=== PATIENT | female | born 1985 | race Caucasian/White ===

== ENCOUNTER 2018-06-26 20:15 | Observation (INO) | payer SELFPAY ==
--- OUTSIDE RECORDS SUMMARY | 2018-06-26 20:32 | XMS REPORT | Continuity of Care Document ---
:1985 Author Organization Interface Problems Problem Status Onset Classification Date Comments Source Date Reported DUB 06/14/2018 [facility] 019 VAGINAL BLEEDING Active [facility] 019 ABDOMINAL PAIN Active [facility] 017 Discharge 01/06/2016 [facility] Diagnosis: Facial 016 cellulitis HEAD SWELLING Active [facility] 016 Discharge 05/09/2014 [facility] Diagnosis: Acute 015 lumbar back pain Discharge 04/29/2014 [facility] Diagnosis: 015 Cervicitis Discharge 04/29/2014 [facility] Diagnosis: 015 Abdominal pain in Discharge 04/29/2014 [facility] Diagnosis: UTI in 015 FLU-TYPE SYMTOMS Active [facility] 015 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 LEG Active [facility] PAIN/EDEMA-HX:PLAT 014 E Tobacco dependence Active Problem 06/14/2018 Data [facility] syndrome<sup>5</hylton 014 migrated p> from [employer] on 07/26/14. Abnormal cytology Active Problem 06/14/2018 Data [facility] findings<sup>1</hylton 014 migrated p> from [employer] on 07/26/14. , Active [facility] DELIVERY 014 Discharge 05/02/2013 [facility] Diagnosis: Bipolar 014 Discharge 05/02/2013 [facility] Diagnosis: Ankle 014 sprain Discharge 05/02/2013 [facility] Diagnosis: 014 RIGHT FOOT INJURY Active [facility] 014 Depressive Active Problem 06/14/2018 Data [facility] disorder<sup>3</hylton 013 migrated p[facility] 07/26[facility]14. Resolved Problem 06/14/2018 [facility] 013 CHEST PAIN Active [facility] 013 ABD PAIN Active [facility] 013 STOMACH PAIN Active [facility] 013 CRONES EPISODE Active [facility] 012 Anxiety Active Problem 06/14/2018 [facility] Bipolar Active Problem 03/05/2017 [facility] Depression Active Problem 03/05/2017 [facility] Gastritis Active Problem 06/14/2018 [facility] Insomnia Active Problem 06/14/2018 [facility] Intussusception of Resolved Problem 06/14/2018 [facility] intestine Intussusception of Active Problem 06/14/2018 [facility] the intestine Depression Resolved Problem 10/22/2012 [facility] Gastritis Active Problem 10/22/2012 [facility] Intussusception of Active Problem 10/22/2012 [facility] the intestine [facility] INTUSSUSCEPTION Active [facility] PAIN IN LIMB Active [facility] DELIVERY Active [facility] NOS RIGHT TUBAL Active [facility] WITHOUT INTRAUTERI Medications Medication Details Route Status Patient Ordering Order Source Instructions Provider Date Acetaminophen 650 mg, 2 tab, Inactive Route: PO, [facility] Drug form: TAB, ONCE, Dosing Weight 46.364, kg, Priority: STAT, Start date: 06/11/18 10:48:00 CDT, Stop date: 06/11/18 10:48:00 CDTNotes: Do not exceed 4 gm/day. (Same as: Tylenol) Saline Flush 0.9% 10 mL, Route: Inactive IVP, Drug 2018 [facility] Form: INJ, Dosing Weight 46.364, kg, PRN, PRN Line Flush, Start date: 06/11/18 10:48:00 CDT, Duration: 30 day, Stop date: 07/11/18 10:47:00 CDTNotes: (Same as: BD Posiflush) Sodium Chloride 500 mL, 500 Inactive 0.9% (Bolus) IV ml/hr, Infuse [facility] Over: 1 hr, Route: IV, 500, Drug form: INJ, ONCE, Priority: STAT, Dosing Weight 46.364 kg, Start date: 06/11/18 10:48:00 CDT, Stop date: 06/11/18 10:48:00 CDT Cefazolin 2 gm, Route: Inactive IVPB, ONCE, [facility] Dosing Weight 45.727, kg, Start date: 03/02/17 18:47:00 [employer], Stop date: 03/02/17 18:47:00 [employer], Surgical Prophylaxis Only; For patients ketOROLAC (ANES) IV, ONCE Inactive [facility] ondansetron Route: IV, Inactive (ANES) Drug form: 2017 [facility] INJ, ONCE, Stop date: 03/02/17 18:45:00 [employer] neostigmine Route: IV, Inactive (ANES) Drug form: 2017 [facility] INJ, ONCE, Stop date: 03/02/17 18:45:00 [employer] glycopyrrolate Route: IV, Inactive (ANES) Drug form: 2017 [facility] INJ, ONCE, Stop date: 03/02/17 18:45:00 [employer] ceFAZolin (ANES) Route: IV, Inactive Drug form: 2017 [facility] INJ, ONCE, Stop date: 03/02/17 18:34:00 [employer] dexamethasone Route: IV, Inactive (ANES) Drug form: 2017 [facility] INJ, ONCE, Stop date: 03/02/17 18:34:00 [employer] rocuronium (ANES) Route: IV, Inactive Drug form: 2017 [facility] INJ, ONCE, Stop date: 03/02/17 18:34:00 [employer] Zofran 4 mg, 2 mL, Inactive Route: IVP, [facility] Drug form: INJ, Q4H, Dosing Weight 45.727, kg, PRN Nausea, Start date: 03/02/17 18:34:00 [employer], Duration: 30 day, Stop date: 04/01/17 18:33:00 CSTNotes: (Same as: Zofran) MEDICATION WASTE Product Size: 4 mg Product Wasted: ___ mg Morphine 2 mg, 1 mL, Inactive Route: IVP, 2017 [facility] Drug form: INJ, Q2H, Dosing Weight 45.727, kg, PRN Pain Score 7-10, Start date: 03/02/17 18:34:00 [employer], Duration: 30 day, Stop date: 04/01/17 18:33:00 CSTNotes: (Same as:MORPhine Sulfate) acetaminophen-cod 2 tab, Route: Inactive eine #3 PO, Drug Form: 2017 [facility] TAB, Dosing Weight 45.727, kg, Q4H, PRN Pain Score 4-6, Start date: 03/02/17 18:34:00 [employer], Duration: 30 day, Stop date: 04/01/17 18:33:00 CSTNotes: Do not exceed 4gm/day of acetaminophen. (Same as: Tylenol with Codeine # 3) Acetaminophen 300 1 - 2 tab, PO, Active MG / Codeine Q4H, PRN Pain, 2017 [facility] Phosphate 30 MG X 2 week, # 30 Oral Tablet tab, 0 [Tylenol with Refill(s) Codeine #3] propofol (ANES) Route: IV, Inactive Drug form: 2017 [facility] INJ, ONCE, Stop date: 03/02/17 18:24:00 [employer] fentaNYL (ANES) Route: IV, Inactive Drug form: 2017 [facility] INJ, ONCE, Stop date: 03/02/17 18:24:00 [employer] lidocaine (ANES) Route: IV, Inactive Drug form: 2017 [facility] INJ, ONCE, Stop date: 03/02/17 18:24:00 [employer] acetaminophen Route: IV, Inactive (ANES) 10 mg Drug form: 2017 [facility] INJ, Start date: 03/02/17 18:06:00 [employer], Stop date: 03/02/17 19:06:00 [employer] Lactated Ringers Route: IV, Inactive Injection IV Total Volume: 2017 [facility] (ANES) 1000 mL 1,000, Start date: 03/02/17 17:34:00 [employer], Stop date: 03/02/17 18:34:00 [employer] Meperidine 12.5 mg, 0.5 Inactive mL, Route: 2017 [facility] IVP, Drug form: INJ, Q30Min, Dosing Weight 45.727, kg, PRN Other -See Comment, For shivering, Start date: 03/02/17 17:13:00 [employer], Duration: 2 doses or times, Stop date: 03/03/17 5:00:00 CSTNotes: (Same as: Demerol) "Use Precaution in Elderly, Seizure disorders, and Renal impairment" Promethazine 6.25 mg, 50 Inactive mL, Route: 2017 [facility] IVPB, Drug form: SOLN, ONCE, Dosing Weight 45.727, kg, PRN Nausea & Vomiting, Start date: 03/02/17 17:13:00 [employer] Ondansetron 4 mg, 2 mL, Inactive Route: IVP2017 [facility] Drug form: INJ, ONCE, Dosing Weight 45.727, kg, PRN Nausea & Vomiting, Start date: 03/02/17 17:13:00 CSTNotes: (Same as: Zofran) MEDICATION WASTE Product Size: 4 mg Product Wasted: ___ mg Flumazenil 0.2 mg, 2 mL, Inactive Route: IV2017 [facility] Drug form: INJ, PRN, Dosing Weight 45.727, kg, PRN Benzodiazepine Reversal, Initial dose, Start date: 03/02/17 17:13:00 [employer], Stop date: 04/02/17 5:00:00 CSTNotes: (Same as: Romazicon) Naloxone 0.4 mg, 1 mL, Inactive Route: IV2017 [facility] Drug form: INJ, Q2MIN, Dosing Weight 45.727, kg, PRN Narcotic Reversal, Start date: 03/02/17 17:13:00 [employer], Duration: 8 doses or times, Stop date: 03/03/17 5:00:00 CSTNotes: Same as Narcan Albuterol 0.83 2.49 mg, 3 mL, Inactive MG/ML Inhalant Route: [facility], 2017 [facility] Solution Drug form: SOLN, Q20Min, Dosing Weight 45.727, kg, PRN Wheezing, Priority: STAT, Start date: 03/02/17 17:13:00 [employer], Duration: 12 hr, Stop date: 03/03/17 5:12:00 CSTNotes: SEE RT DOCUMENTATION (Same as: Proventil) Morphine 2 mg, 1 mL, Inactive Route: IVP, 2017 [facility] Drug form: INJ, Q5Min, Dosing Weight 45.727, kg, PRN Pain Score 4-6, Start date: 03/02/17 17:13:00 [employer], Duration: 5 doses or times, Stop date: 03/03/17 5:00:00 CSTNotes: (Same as:MORPhine Sulfate) Oxycodone 5 mg, 1 tab, Inactive Route: PO, [facility] Drug form: TAB, Q4H, Dosing Weight 45.727, kg, PRN Pain Score 4-6, Start date: 03/02/17 17:13:00 [employer], Duration: 12 hr, Stop date: 03/03/17 5:12:00 CSTNotes: (Same as: Roxicodone) Hydromorphone 0.5 mg, 0.5 Inactive mL, Route: [facility] IVP, Drug form: INJ, Q5Min, Dosing Weight 45.727, kg, PRN Pain Score 7-10, Start date: 03/02/17 17:13:00 [employer], Duration: 4 doses or times, Stop date: 03/03/17 5:00:00 CSTNotes: Same as: Dilaudid Ketorolac 30 mg, 1 mL, Inactive Route: IVP2017 [facility] Drug form: INJ, ONCE, Dosing Weight 45.727, kg, Start date: 03/02/17 17:13:00 [employer], Stop date: 03/02/17 17:13:00 CSTNotes: (Same as:Toradol) IV bolus must be given >15 seconds. Give IM administration slowly and deeply into the muscle. Not for use > 4 days MEDICATION WASTE Product Size: 30 mg Product Wasted: ___ mg Acetaminophen 1,000 mg, 2 Inactive tab, Route: [facility] PO, Drug form: TAB, ONCE, Dosing Weight 45.727, kg, PRN Pain Score 1-3, Start date: 03/02/17 17:13:00 CSTNotes: Max acetaminophen 4000 mg/day (4 gm/day). (Same as: Tylenol Extra Strength) Labetalol 10 mg, 2 mL, Inactive Route: IVP, 2017 [facility] Drug form: INJ, Q5Min, Dosing Weight 45.727, kg, PRN Elevated BP, Start date: 03/02/17 17:13:00 [employer], Duration: 5 doses or times, Stop date: 03/03/17 5:00:00 CSTNotes: (Same as: Normodyne, Trandate) Push over 2 minutes Give bolus over 2-3 minutes. Hydralazine 10 mg, 0.5 mL, Inactive Route: IVP, 2017 [facility] Drug form: INJ, Q20Min, Dosing Weight 45.727, kg, PRN Elevated BP, Start date: 03/02/17 17:13:00 [employer], Duration: 2 doses or times, Stop date: 03/03/17 5:00:00 CSTNotes: (Same as: Apresoline) Push over 5 minutes Calcium Chloride 1,000 mL, Inactive 0.0014 MEQ/ML / 1,000 ml/hr, [facility] Potassium Infuse Over: 1 Chloride 0.004 hr, Route: IV, MEQ/ML / Sodium 1,000, Drug Chloride 0.103 form: INJ, MEQ/ML / Sodium ONCE, Lactate 0.028 Priority: MEQ/ML Injectable STAT, Dosing Solution Weight 45.727 kg, Start date: 03/02/17 15:00:00 [employer], Stop date: 03/02/17 15:00:00 [employer] Zofran 4 mg, Route: Inactive IVP, Drug [facility] form: INJ, ONCE, Dosing Weight 45.727, kg, Priority: STAT, Start date: 03/02/17 14:25:00 [employer], Stop date: 03/02/17 14:25:00 [employer] Morphine 4 mg, Route: Inactive IVP, ONCE, [facility] Dosing Weight 45.727, kg, Priority: STAT, Start date: 03/02/17 14:25:00 [employer], Stop date: 03/02/17 14:25:00 [employer] Sodium Chloride 1,000 mL, Inactive 0.9% (Bolus) IV Infuse Over: 1 [facility] hr, Route: IV, ONCE, Priority: STAT, Dosing Weight 45.727 kg, Start date: 03/02/17 14:25:00 [employer], Stop date: 03/02/17 14:25:00 [employer] Tylenol 650 mg, Route: Inactive PO, Drug form: 2017 [facility] TAB, ONCE, Dosing Weight 45.727, kg, Priority: STAT, Start date: 03/02/17 12:37:00 [employer], Stop date: 03/02/17 12:37:00 [employer] Sulfamethoxazole 1 tab, PO, Active 800 MG / BID, X 10 day, 2016 [facility] Trimethoprim 160 # 20 tab, 0 MG Oral Tablet Refill(s) [Bactrim] Cephalexin 500 MG 500 mg=1 cap, Active Oral Capsule PO, QID, X 10 [facility] [Keflex] day, # 40 cap, 0 Refill(s) Acetaminophen 325 1 tab, Route: Inactive MG / Hydrocodone PO, Dosing 2014 [facility] Bitartrate 5 MG Weight 50.909, Oral Tablet kg, ONCE, STAT, Start date: 05/06/14 14:00:00, Stop date: 05/06/14 14:00:00 Sodium Chloride 1,000 mL, 1000 Inactive 0.154 MEQ/ML ml/hr, Infuse 2014 [facility] Injectable Over: 1 hr, Solution Route: IV, 1,000, Drug form: INJ, ONCE, Priority: STAT, Dosing Weight 50.909 kg, Start date: 05/06/14 13:07:00, Duration: 1 doses or times, Stop date: 05/06/14 13:07:00 Morphine 4 mg, 1 mL, Inactive Route: IVP, 2014 [facility] Drug form: INJ, ONCE, Dosing Weight 50.909, kg, Priority: STAT, Start date: 05/06/14 12:52:00, Stop date: 05/06/14 12:52:00Notes: (Same as:MORPhine Sulfate) Ondansetron 4 mg, 2 mL, Inactive Route: IVP, 2014 [facility] Drug form: INJ, ONCE, Dosing Weight 50.909, kg, Priority: STAT, Start date: 05/06/14 12:52:00, Stop date: 05/06/14 12:52:00Notes: (Same as: Zofran) Acetaminophen 1,000 mg, 2 Inactive tab, Route: 2014 [facility] PO, Drug form: TAB, ONCE, Dosing Weight 50.909, kg, Priority: STAT, Start date: 05/06/14 12:52:00, Stop date: 05/06/14 12:52:00Notes: Max acetaminophen 4000 mg/day (4 gm/day). (Same as: Tylenol Extra Strength) Ondansetron 8 MG 8 mg=1 tab, Active Disintegrating PO, TID, 2014 [facility] Tablet [Zofran] Nausea and Vomiting, Dissolve tab under tongue, # 15 tab, 0 Refill(s)Speci al Instructions: Dissolve tab under tongue Amoxicillin 875 875 mg=1 tab, Active MG / Clavulanate PO, Q12H, # 14 2014 [facility] 125 MG Oral tab, 0 Tablet [Augmentin Refill(s) 875-mg] Acetaminophen 300 1 tab, PO, Active MG / Codeine Q6H, for pain, 2014 [facility] Phosphate 30 MG # 12 tab, 0 Oral Tablet Refill(s) [Tylenol with Codeine #3] Azithromycin 1,000 mg, 4 Inactive tab, Route: 2014 [facility] PO, Drug form: TAB, ONCE, Dosing Weight 50, kg, Start date: 04/27/14 1:56:00, Stop date: 04/27/14 1:56:00Notes: Take 1 hour before or 2 hours after meals. (Same As: Zithromax) Ceftriaxone 250 mg, Route: Inactive IM, Drug form: 2014 [facility] PDR/INJ, ONCE, Dosing Weight 50, kg, Priority: STAT, Start date: 04/27/14 1:56:00, Stop date: 04/27/14 1:56:00Notes: (Same As: Rocephin) Morphine 6 mg, 0.6 mL, Inactive Route: IVP, 2014 [facility] Drug form: SOLN, ONCE, Dosing Weight 50, kg, Priority: STAT, Start date: 04/27/14 1:36:00, Stop date: 04/27/14 1:36:00Notes: (Same as: MORPhine Sulfate) Sodium Chloride 1,000 mL, No Longer 0.154 MEQ/ML 1,000 ml/hr, Active 2014 [facility] Injectable Infuse Over: 1 Solution hr, Route: IV, 1,000, Drug form: INJ, ONCE, Priority: STAT, Dosing Weight 50 kg, Start date: 04/26/14 23:20:00, Duration: 1 doses or times, Stop date: 04/26/14 23:20:00 Reglan 10 mg, 2 mL, No Longer Route: IVP, Active 2014 [facility] Drug form: INJ, ONCE, Dosing Weight 50, kg, Priority: STAT, Start date: 04/26/14 23:20:00, Stop date: 04/26/14 23:20:00Notes: (Same as: Reglan) tramadol 1 - 2 tabs, Active hydrochloride 50 PO, Q4-6H, as 2014 [facility] MG Oral Tablet needed for [Ultram] pain, pain score 6-10, # 30 tab, 0 Refill(s)Speci al Instructions: pain score 6-10 Acetaminophen 325 1-2 tab, PO, Active MG / Hydrocodone Q4-6H, Pain, # 2013 [facility] Bitartrate 5 MG 20 tab, 0 Oral Tablet Refill(s) [[place] 5/325] Ascorbic Acid 120 1 tab, PO, Active MG / Docusate Daily, # 30 2013 [facility] Sodium 50 MG / tab, 2 Folic Acid 1 MG / Refill(s) Iron Carbonyl 90 MG / Vitamin B 12 0.012 MG Oral Tablet [Ferralet 90] Ibuprofen 800 MG 800 mg=1 tab, Active Oral Tablet PO, Q8H, Pain, 2013 [Motrin] Take with food, # 30 tab, 0 Refill(s)Speci al Instructions: Take with food Lamictal 100 mg, 1 tab, No Longer Route: PO, Active 2013 [facility] Drug form: TAB, Daily, Dosing Weight 60.597, kg, Start date: 08/14/13 9:00:00, Duration: 30 day, Stop date: 09/12/13 9:00:00Notes: (Same as:LaMICtal) Zofran 4 mg, 2 mL, No Longer Route: IV, 2013 Drug form: INJ, Q8H, Dosing Weight 60.597, kg, PRN Nausea, Start date: 08/13/13 21:21:00, Duration: 30 day, Stop date: 09/12/13 21:20:00Notes: (Same as: Zofran) Saline Flush 0.9% 5 ml, Route: No Longer IVP, Drug Active 2013 Form: INJ, Dosing Weight 60.597, kg, Q12H, Start date: 08/13/13 21:00:00, Duration: 30 day, Stop date: 09/12/13 9:00:00Notes: (Same as: BD Posiflush) Morphine 30 mg, 30 mL, No Longer Route: IV, 2013 Initial Loading Dose: 2 mg, [employer] Dose: 1 mg, [employer] Lockout: 10 minutes, Continuous Basal Rate: 1 mg, 4 Hour Limit (In MG): 30, Drug Form: INJ, Continuous, Start date: 08/13/13 18:00:00, Duration: 30 day, Stop date: 09/12/13 17:5...Notes: Dose: Delay: Basal rate: 4hr limit: (Same as:Sergio) 1 tab, Route: No Longer Multivitamins PO, Drug Form: 2013 oral tablet TAB, Dosing Weight 60.597, kg, Daily, Start date: 08/13/13 18:00:00, Duration: 30 day, Stop date: 09/12/13 9:00:00 Ofirmev 1,000 mg, 100 No Longer mL, Route: IV, 2013 Drug form: INJ, Q6H, Dosing Weight 60.597, kg, PRN Pain, for > or=50 kg, Start date: 08/13/13 17:59:00, Duration: 1 day, Stop date: 08/14/13 17:58:00Notes: Infuse over 15 minutes Do not exceed 4gm/day of acetaminophen Ketorolac 30 mg, 1 mL, No Longer Tromethamine 30 Route: IV, 2013 MG/ML Injectable Drug form: Solution INJ, Q6H, Dosing Weight 60.597, kg, PRN Pain, Start date: 08/13/13 17:59:00, Duration: 1 day, Stop date: 08/14/13 17:58:00Notes: (Same as:Toradol) IV bolus must be given >15 seconds. Give IM administration slowly and deeply into the muscle. Not for use > 4 days Demerol HCl 25 mg, 1 mL, No Longer Route: IVP, Active 2013 [facility] Drug form: INJ, Q4H, Dosing Weight 60.597, kg, PRN Pain, Start date: 08/13/13 17:59:00, Duration: 4 day, Stop date: 08/17/13 17:58:00Notes: (Same as: Demerol) "Use Precaution in Elderly, Seizure disorders, and Renal impairment" Naloxone 0.04 mg, 0.1 No Longer mL, Route: Active 2013 [facility] IVP, Drug form: SOLN, Q2MIN, Dosing Weight 60.597, kg, PRN Narcotic Reversal, Start date: 08/13/13 17:59:00, Duration: 30 day, Stop date: 09/12/13 17:58:00Notes: Same as: Narcan Acetaminophen 1 gm, 100 mL, No Longer Route: IV, Active 2013 [facility] Drug form: INJ, Q6H, Dosing Weight 60.597, kg, PRN Pain, Start date: 08/13/13 16:59:00, Duration: 30 day, Stop date: 09/12/13 16:58:00Notes: Infuse over 15 minutes Do not exceed 4gm/day of acetaminophen Ketorolac 30 mg, 1 mL, No Longer Route: IV, Active 2013 [facility] Drug form: INJ, Q6H, Dosing Weight 60.597, kg, PRN Pain, Start date: 08/13/13 16:58:00, Duration: 4 day, Stop date: 08/17/13 16:57:00Notes: (Same as:Toradol) IV bolus must be given >15 seconds. Give IM administration slowly and deeply into the muscle. Not for use > 4 days Acetaminophen 325 1 tab, Route: No Longer MG / Hydrocodone PO, Drug Form: Active 2013 [facility] Bitartrate 10 MG TAB, Dosing Oral Tablet Weight 60.597, kg, Q4H, PRN Pain Score 7-10, Start date: 08/13/13 15:32:00, Duration: 30 day, Stop date: 09/12/13 15:31:00Notes: Do not exceed 4gm/day of acetaminophen. (Same as: [place] 325/10) Acetaminophen 325 1 tab, Route: No Longer MG / Hydrocodone PO, Drug Form: Active 2013 [facility] Bitartrate 5 MG TAB, Dosing Oral Tablet Weight 60.597, kg, Q4H, PRN Pain Score 4-6, Start date: 08/13/13 15:32:00, Duration: 30 day, Stop date: 09/12/13 15::Notes: (Same as: [place] 325/5) Do not exceed 4gm/day of acetaminophen. Ibuprofen 800 mg, 2 tab, No Longer Route: PO, Active 2013 [facility] Drug form: TAB, Q8H, Dosing Weight 60.597, kg, PRN Pain Score 6-10, Start date: 08/13/13 15:32:00, Duration: 30 day, Stop date: 09/12/13 15::00Notes: (Same as: Motrin) "Do Not Crush" Give with food. Saline Flush 0.9% 5 ml, Route: No Longer IVP, Drug Active 2013 [facility] Form: INJ, Dosing Weight 60.597, kg, PRN, PRN Line Flush, Start date: 08/13/13 15:32:00, Duration: 30 day, Stop date: 09/12/13 15:31:00Notes: (Same as: BD Posiflush) zolpidem 5 mg, 1 tab, No Longer Route: PO, Active 2013 [facility] Drug form: TAB, Bedtime, Dosing Weight 60.597, kg, PRN Insomnia, Start date: 08/13/13 15:32:00, Duration: 30 day, Stop date: 09/12/13 15:31:00Notes: (Same As: Ambien) Simethicone 160 mg, 2 tab, No Longer Route: PO, Active 2013 [facility] Drug form: [place], Q8H, Dosing Weight 60.597, kg, PRN Gas, Start date: 08/13/13 15:32:00, Duration: 30 day, Stop date: 09/12/13 15:31:00Notes: (Same as: Mylicon) Acetaminophen 650 mg, 2 tab, No Longer Route: PO, Active 2013 [facility] Drug form: TAB, Q4H, Dosing Weight 60.597, kg, PRN Other -See Comment, Start date: 08/13/13 15:32:00, Duration: 30 day, Stop date: 09/12/13 15:31:00Notes: Do not exceed 4 gm/day. (Same as: Tylenol) lanolin topical 1 appl, Route: No Longer cream TOP, PRN, Drug Active 2013 [facility] form: OINT, PRN Other -See Comment, Start date: 08/13/13 15:32:00, Duration: 30 day, Stop date: 09/12/13 15:31:00 Bisacodyl 10 mg, 1 supp, No Longer Route: CA, Active 2013 [facility] Drug form: SUPP, PRN, Dosing Weight 60.597, kg, PRN Other -See Comment, Start date: 08/13/13 15:32:00, Duration: 30 day, Stop date: 09/12/13 15:31:00Notes: (Same As: Dulcolax, Bisco-Lax) Oxytocin 0.03 30 unit, 500 No Longer UNT/ML Injectable mL, Rate: 42 [facility] Solution ml/hr, Infuse over: 11.9 hr, Dosing Weight 60.597, kg, Route: IV, Total Volume: 500 mL, Start date: 08/13/13 15:32:00, Duration: 1 doses or times, Stop date: 08/14/13 3:25:00, Replace Every: 11.9 hrNotes: (Same as: 1/2NS-Pitocin) Lactated Ringers 1,000 mL, No Longer IV 1,000 mL Rate: 100 Active 2013 ml/hr, Infuse over: 10 hr, Route: IV, Dosing Weight 60.597 kg, Total Volume: 1,000, Start date: 08/13/13 15:32:00, Duration: 30 day, Stop date: 09/12/13 15:31:00 Morphine 30 mg, 30 mL, No Longer Route: IV, Active 2013 [place] Initial Loading Dose: 2 mg, [employer] Dose: 1 mg, [employer] Lockout: 10 minutes, Continuous Basal Rate: 1 mg, 4 Hour Limit (In MG): 30, Drug Form: INJ, Continuous, Start date: 08/13/13 12:30:00, Duration: 30 day, Stop date: 09/12/13 12:2...Notes: Dose: Delay: Basal rate: 4hr limit: (Same as:Gerardi-Mikhali) Alprazolam 0.5 MG 0.5 mg, 1 tab, No Longer Oral Tablet Route: PO, Active 2013 [place] [Xanax] Drug form: TAB, BID, Dosing Weight 60.597, kg, PRN Anxiety, Start date: 08/13/13 12:05:00, Duration: 30 day, Stop date: 09/12/13 12:04:00Notes: With food or milk (Same as: Xanax) Ofirmev 1,000 mg, 100 Inactive mL, Route: IV, 2013 [facility] Drug form: INJ, Q6H, Dosing Weight 60.597, kg, PRN Pain, for > or=50 kg, Start date: 08/13/13 12:03:00, Duration: 1 day, Stop date: 08/14/13 12:02:00Notes: Infuse over 15 minutes Do not exceed 4gm/day of acetaminophen Demerol HCl 25 mg, 1 mL, Inactive Route: IVP, 2013 [facility] Drug form: INJ, Q4H, Dosing Weight 60.597, kg, PRN Pain, Start date: 08/13/13 12:03:00, Duration: 4 day, Stop date: 08/17/13 12:02:00Notes: (Same as: Demerol) "Use Precaution in Elderly, Seizure disorders, and Renal impairment" Ketorolac 30 mg, 1 mL, Inactive Tromethamine 30 Route: IV, 2013 MG/ML Injectable Drug form: Solution INJ, Q6H, Dosing Weight 60.597, kg, PRN Pain, Start date: 08/13/13 12:03:00, Duration: 1 day, Stop date: 08/14/13 12:02:00Notes: (Same as:Toradol) IV bolus must be given >15 seconds. Give IM administration slowly and deeply into the muscle. Not for use > 4 days Naloxone 0.04 mg, 0.1 No Longer mL, Route: Active 2013 [facility] IVP, Drug form: INJ, Q2MIN, Dosing Weight 60.597, kg, PRN Narcotic Reversal, Start date: 08/13/13 12:03:00, Duration: 30 day, Stop date: 09/12/13 12:02:00Notes: Same as Narcan Alprazolam 0.5 MG 0.5 mg=1 tab, No Longer Oral Tablet PO, BID, Active 2013 [facility] [Xanax] anxiety, stress, # 20 tab, 0 Refill(s) Valium 0.5, PO, No Longer Bedtime, 0 Active 2013 [facility] Refill(s) Cefazolin 2 gm, Route: Inactive IVPB, ONCALL, 2013 [facility] Dosing Weight 60.597, kg, Start date: 08/13/13 11:00:00, Duration: 1 doses or times Misoprostol 1,000 Inactive microgram, 10 2013 [facility] tab, Route: CA, Drug form: TAB, ONCALL, Dosing Weight 60.597, kg, Start date: 08/13/13 11:00:00, Duration: 30 day, Stop date: 09/12/13 10:59:00Notes: (Same as:Cytotec) Take with food Methylergonovine 0.2 mg, 1 mL, Inactive Route: IM, 2013 [facility] Drug form: INJ, ONCALL, Dosing Weight 60.597, kg, Start date: 08/13/13 11:00:00, Duration: 30 day, Stop date: 09/12/13 10:59:00Notes: (Same as:Methergine) Carboprost 250 microgram, Inactive 1 mL, Route: 2013 [facility] IM, Drug form: INJ, ONCALL, Dosing Weight 60.597, kg, Start date: 08/13/13 11:00:00, Duration: 30 day, Stop date: 09/12/13 10:59:00Notes: (Same As: Hemabate) Reglan 10 mg, Route: Inactive IV, ONCE, 2013 [facility] Dosing Weight 60.597, kg, Start date: 08/13/13 10:59:00, Stop date: 08/13/13 10:59:00 Pepcid 20 mg, Route: Inactive IV, ONCE, 2013 [facility] Dosing Weight 60.597, kg, Start date: 08/13/13 10:59:00, Stop date: 08/13/13 10:59:00 Rocephin 2 gm, Route: Inactive IV, ONCE, 2013 [facility] Dosing Weight 60.597, kg, Start date: 08/13/13 10:58:00, Stop date: 08/13/13 10:58:00 Terbutaline 0.25 mg, 0.25 Inactive mL, Route: 2013 [facility] SUB-Q, Drug form: INJ, ONCALL, Dosing Weight 60.597, kg, PRN Other -See Comment, Start date: 08/13/13 10:56:00, Duration: 1 doses or times, Stop date: Limited # of timesNotes: DO NOT 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 AREA (Same As: Brethine) Oxytocin 0.03 30 unit, 500 Inactive UNT/ML Injectable mL, Rate: 42 2013 [facility] Solution ml/hr, Infuse over: 11.9 hr, Dosing Weight 60.597, kg, Route: IV, Total Volume: 500 mL, Start date: 08/13/13 10:56:00, Duration: 1 doses or times, Stop date: 08/13/13 22:49:00, Replace Every: 11.9 hrNotes: (Same as: 1/2NS-Pitocin) Citric Acid / 30 mL, Route: Inactive sodium citrate PO, Drug Form: 2013 [facility] SOLN, Dosing Weight 60.597, kg, ONCE, Start date: 08/13/13 10:56:00, Duration: 1 doses or times, Stop date: 08/13/13 10:56:00Notes: (Same As: Bicitra) Calcium Chloride 1,000 mL, Inactive 0.0014 MEQ/ML / Rate: 125 2013 [facility] Potassium ml/hr, Infuse Chloride 0.004 over: 8 hr, MEQ/ML / Sodium Route: IV, Chloride 0.103 Dosing Weight MEQ/ML / Sodium 60.597 kg, Lactate 0.028 Total Volume: MEQ/ML Injectable 1,000, Start Solution date: 08/13/13 10:56:00, Duration: 30 day, Stop date: 09/12/13 10:55:00 Morphine 2 mg, 1 mL, Inactive Route: IVP, 2013 [facility] Drug form: INJ, Q2H, Dosing Weight 60.597, kg, PRN Pain Score 7-10, Start date: 08/13/13 10:56:00, Duration: 30 day, Stop date: 09/12/13 10:55:00Notes: (Same as:MORPhine Sulfate) Ondansetron 4 mg, 2 mL, Inactive Route: IVP, 2013 [facility] Drug form: INJ, Q8H, Dosing Weight 60.597, kg, PRN Nausea & Vomiting, Start date: 08/13/13 10:56:00, Duration: 30 day, Stop date: 09/12/13 10:55:00Notes: (Same as: Zofran) Acetaminophen 325 1 tab, PO, Active MG / Hydrocodone Q4-6H, as 2013 [facility] Bitartrate 5 MG needed for Oral Tablet pain, # 12 [[place] 5/325] tab, 0 Refill(s) Acetaminophen 325 1 tab, Route: Inactive MG / Hydrocodone PO, Drug Form: 2013 [facility] Bitartrate 5 MG TAB, Dosing Oral Tablet Weight 52.273, [[place] 5/325] kg, ONCE, Start date: 04/30/13 19:22:00, Stop date: 04/30/13 19:22:00(Same as: [place] 325/5) Do not exceed 4gm/day of acetaminophen. Lamictal 100 mg, Daily, Active 0 Refill(s) 2013 [facility] 0 Refill(s) Active Multivitamins 2013 with Folic Acid 0.4 mg oral tablet Vicodin 5/500 1-2 tablets, PO Active [facility] oral tablet PO, TID, PRN, 2012 [facility] 15 tab, for Pain, Substitution Allowed, Maintenance naproxen 500 mg 500 mg, 1 tab, PO Active [facility] oral tablet PO, Q12H, PRN, 2012 [facility] 20 tab, Pain, Substitution Allowed, TAB [place] 5/325 oral 2 tab, Route: PO No Longer [facility] tablet PO, Drug Form: Active 2012 [facility] TAB, Dosing Weight 49.545, kg, ONCE, Start date: 10/19/12 23:27:00, Stop date: 10/19/12 23:27:00 GI cocktail 30 mL, Route: PO No Longer [facility] PO, Drug Form: Active 2012 [facility] SUSP, Dosing Weight 49.545, kg, ONCE, STAT, Start date: 10/19/12 22:34:00, Stop date: 10/19/12 22:34:00 ketorolac 30 mg, 1 mL, IVP No Longer [facility] Route: IVP, Active 2012 [facility] Drug form: INJ, ONCE, Dosing Weight 49.545, kg, Priority: STAT, Start date: 10/19/12 21:37:00, Stop date: 10/19/12 21:37:00 nitrofurantoin 100 mg, 1 cap, PO Active [facility] macrocrystals 100 PO, QID, 28 2012 [facility] mg oral capsule cap, Substitution Allowed, CAP Zofran ODT 4 mg 4 mg, 1 tab, PO Active [facility] oral tablet, PO, BID, 2012 [facility] disintegrating Dissolve tab under tongue, 10 tab, Substitution AllowedDissolv e tab under tongue omeprazole Substitution Active Allowed 2012 [facility] Omnipaque 240 50 ml, Route: PO No Longer [facility] PO, Drug Form: Active 2012 [facility] SOLN, Dosing Weight 48.636, kg, ONCE, Start date: 05/31/12 19:15:00, Stop date: 05/31/12 19:15:00 Zofran 4 mg, 2 mL, IVP No Longer [facility] Route: IVP, Active 2012 [facility] Drug form: INJ, ONCE, Dosing Weight 48.636, kg, Priority: STAT, Start date: 05/31/12 19:15:00, Stop date: 05/31/12 19:15:00 morphine Sulfate 4 mg, 1 mL, IVP No Longer [facility] Route: IVP, Active 2012 [facility] Drug form: INJ, ONCE, Dosing Weight 48.636, kg, Start date: 05/31/12 19:15:00, Stop date: 05/31/12 19:15:00 NS (Bolus) IV 1,000 mL, IV No Longer [place]te 1,000 mL Rate: 1,000 Active 2012 [facility] ml/hr, Infuse over: 1 hr, Route: IV, kg, Total Volume: 1,000, Priority: STAT, Start date: 05/31/12 19:15:00, Duration: 1 doses or times, Stop date: 05/31/12 22:14:00, Bolus DoseBolus Dose Saline Flush 0.9% 5 mL, Route: IVP No Longer [facility] IVP, Drug Active 2012 [facility] Form: INJ, Dosing Weight 48.636, kg, PRN, PRN Line Flush, Start date: 05/31/12 19:15:00, Duration: 24 hr, Stop date: 06/01/12 19:14:00 Mylicon 80 mg, 1 tab, CHEW No Longer [place] Route: CHEW, Active 2011 [facility] Drug form: CHEWTAB, QID, PRN Gas, Start date: 04/17/11 12:00:00, Duration: 30 day, Stop date: 05/17/11 11:59:00 Lovenox 40 mg, 0.4 mL, SUB-Q No Longer [place] Route: SUB-Q, Active 2011 [facility] Drug form: INJ, Daily, Start date: 04/17/11 9:00:00, Duration: 30 day, Stop date: 05/16/11 9:00:00 morphine Sulfate 2 mg, Route: IVP No Longer [place] IVP, ONCE, Active 2011 [facility] Start date: 04/16/11 19:35:00, Stop date: 04/16/11 19:35:00 morphine Sulfate 4 mg, 1 mL, IVP No Longer [place] Route: IVP, [facility] 2011 [facility] Drug form: INJ, ONCE, Start date: 04/16/11 19:25:00, Stop date: 04/16/11 19:25:00 morphine Sulfate 4 mg, Route: IVP No Longer [place] IVP, ONCE, [facility] 2011 [facility] Start date: 04/16/11 19:20:00, Stop date: 04/16/11 19:20:00 Phenergan 12.5 mg, 0.5 IM No Longer [place] mL, Route: IM, 2011 [facility] Drug form: INJ, Q4H, PRN Nausea & Vomiting, Start date: 04/16/11 19:13:00, Duration: 30 day, Stop date: 05/16/11 19:12:00 morphine Sulfate 2 mg, 1 mL, IV No Longer [place] Route: IV, [facility] 2011 [facility] Drug form: INJ, Q4H, PRN Pain, Start date: 04/16/11 19:12:00, Duration: 30 day, Stop date: 05/16/11 19:11:00 1/2NS 1,000 mL 1,000 mL, IV No Longer [place] Rate: 50 [facility] 2011 [facility] ml/hr, Infuse over: 20 hr, Route: IV, Total Volume: 1,000, Start date: 04/16/11 19:12:00, Duration: 30 day, Stop date: 05/16/11 19:11:00 morphine Sulfate 4 mg, Route: IVP No Longer [place] IVP, ONCE, [facility] 2011 [facility] Start date: 04/16/11 19:11:00, Stop date: 04/16/11 19:11:00 morphine Sulfate 4 mg, Route: IVP No Longer [place] IVP, ONCE, [facility] 2011 [facility] Start date: 04/16/11 19:09:00, Stop date: 04/16/11 19:09:00 morphine Sulfate 2 mg, Route: IVP No Longer [place] IVP, ONCE, [facility] 2011 [facility] Start date: 04/16/11 19:04:00, Stop date: 04/16/11 19:04:00 Demerol HCl 12.5 mg, IVP No Longer [place] Route: IVP, Active 2011 [facility] ONCE, Start date: 04/16/11 19:01:00, Stop date: 04/16/11 19:01:00 Demerol HCl 12.5 mg, IVP No Longer [place] Route: IVP, Active 2011 [facility] ONCE, Start date: 04/16/11 19:00:00, Stop date: 04/16/11 19:00:00 Demerol HCl 12.5 mg, IVP No Longer [place] Route: IVP, Active 2011 [facility] ONCE, Start date: 04/16/11 18:12:00, Stop date: 04/16/11 18:12:00 acetaminophen 1,000 mg, IVP No Longer [place] Route: IVP, Active 2011 [facility] ONCE, Start date: 04/16/11 18:12:00, Stop date: 04/16/11 18:12:00 Demerol HCl 12.5 mg, IVP No Longer [place] Route: IVP, Active 2011 [facility] ONCE, Start date: 04/16/11 18:11:00, Stop date: 04/16/11 18:11:00 cefazolin 1 gm, Route: IVPB No Longer [place] IVPB, ONCE, [facility] 2011 [facility] Priority: STAT, Start date: 04/16/11 16:47:00, Stop date: 04/16/11 16:47:00 Flagyl 500 mg, 100 IVPB No Longer [place] mL, Route: [facility] 2011 [facility] IVPB, Drug form: INJ, ONCE, Start date: 04/16/11 16:47:00, Stop date: 04/16/11 16:47:00 LR IV 1,000 mL 1,000 mL, IV No Longer [place] Rate: 40 Active 2011 [facility] ml/hr, Infuse over: 25 hr, Route: IV, Total Volume: 1,000, Start date: 04/16/11 15:53:00, Duration: 1 doses or times, Stop date: 04/17/11 16:52:00 BD Normal Saline 10 mL, Route: IV No Longer [place] Flush IV, Drug Form: Active 2011 [facility] INJ, PRN, PRN Line Flush, Start date: 04/16/11 15:42:00, Duration: 30 day, Stop date: 05/16/11 16:41:00 cefazolin 1 gm, Route: IVPB No Longer [place] IVPB, ONCE, Active 2011 [facility] Start date: 04/16/11 15:42:00, Stop date: 04/16/11 15:42:00 Zofran 4 mg, 2 mL, IVP No Longer [place] Route: IVP, Active 2011 [facility] Drug form: INJ, Q4H, PRN Nausea & Vomiting, Start date: 04/16/11 15:41:00, Duration: 30 day, Stop date: 05/16/11 15:40:00 morphine Sulfate 4 mg, 1 mL, IVP No Longer [place] Route: IVP, Active 2011 [facility] Drug form: INJ, Q4H, PRN Pain, Start date: 04/16/11 15:41:00, Duration: 30 day, Stop date: 05/16/11 15:40:00 NS 1,000 mL 1,000 mL, IV No Longer [place] Rate: 100 Active 2011 [facility] ml/hr, Infuse over: 10 hr, Route: IV, Total Volume: 1,000, Start date: 04/16/11 15:41:00, Duration: 30 day, Stop date: 05/16/11 15:40:00 cefazolin 1 gm, Route: IVPB No Longer [place] IVPB, ONCE, Active 2011 [facility] Priority: STAT, Start date: 04/16/11 15:17:00, Stop date: 04/16/11 15:17:00 ondansetron 4 mg, 2 mL, IVP No Longer [place] Route: IVP, Active 2011 [facility] Drug form: INJ, ONCE, Priority: STAT, Start date: 04/16/11 15:03:00, Stop date: 04/16/11 15:03:00 morphine Sulfate 4 mg, 1 mL, IVP No Longer [place] Route: IVP, Active 2011 [facility] Drug form: INJ, ONCE, Priority: STAT, Start date: 04/16/11 15:03:00, Stop date: 04/16/11 15:03:00 Sodium Chloride 1,000 mL, IV No Longer [place] 0.9% IV 1,000 mL Rate: 100 Active 2011 [facility] ml/hr, Infuse over: 10 hr, Route: IV, Total Volume: 1,000, Start date: 04/16/11 15:03:00, Duration: 30 day, Stop date: 05/16/11 15:02:00 Sodium Chloride 1,000 mL, IV No Longer [place] 0.9% (Bolus) IV Rate: 1,000 Active 2011 [facility] 1,000 mL ml/hr, Infuse over: 1 hr, Route: IV, Total Volume: 1,000, Bolus Dose, Priority: STAT, Start date: 04/16/11 15:02:00, Duration: 1 doses or times, Stop date: 04/16/11 16:01:00 ondansetron 4 mg, 2 mL, IVP No Longer [place] Route: IVP, Active 2011 [facility] Drug form: INJ, ONCE, Priority: STAT, Start date: 04/16/11 11:01:00, Stop date: 04/16/11 11:01:00 morphine Sulfate 4 mg, 1 mL, IVP No Longer [place] Route: IVP, Active 2011 [facility] Drug form: INJ, ONCE, Priority: STAT, Start date: 04/16/11 11:01:00, Stop date: 04/16/11 11:01:00 Omnipaque 240 50 ml, Route: PO No Longer [place] PO, Drug Form: Active 2011 [facility] SOLN, ONCE, Start date: 04/16/11 11:01:00, Stop date: 04/16/11 11:01:00 Sodium Chloride 1,000 mL, IV No Longer [place] 0.9% (Bolus) IV Rate: 1,000 Active 2011 [facility] 1,000 mL ml/hr, Infuse over: 1 hr, Route: IV, Total Volume: 1,000, Bolus Dose, Priority: STAT, Start date: 04/16/11 11:01:00, Duration: 1 doses or times, Stop date: 04/16/11 12:00:00 RhoGam (MAR 300 microgram, IM No Longer [facility] Chart[facility]) Route: IM, Active 2009 Outpatient ONCE, Start Imaging date: 05/04/09 [place] 8:47:00, Stop [facility] date: 05/04/09 8:47:00 Allergies, Adverse Reactions, Alerts Substance Category Reaction Severity Reaction Status Date Comments Source type Reported Immunizations Immunization Date Site Status Last Comments Source Given Updated RhoGam (Apr Right completed Gayle [facility] Chart[facility]) 4 gluteus medius RhoGam (Apr Other: See completed Art Result [facility] Chart[facility])<sup>1< 0 Comments Comment: /sup> LEFT HIP RhoGam (Apr completed Art 1Result [facility] Charting)<sup>1< 0 Comment: Outpatient /sup> LEFT HIP Imaging [facility] Results Order Name Results Value Reference Date Interpretation Comments Source Range CHEM PANEL eGFR 118 06/11 Result Comment: The eGFR is calculated using the CKD-EPI formula. In most young, healthy individuals the eGFR will be >90 mL/ min/1.73m2. The eGFR declines with age. An eGFR of 60-89 may be normal in mL/min/1.7 some populations, particularly the elderly, for whom the CKD-EPI formula has not been extensively validated. Use of the eGFR is not recommended in the following populations: [facility] 3m2 Individuals with unstable creatinine concentrations, including patients and those with serious co-morbid conditions. Patients with extremes in muscle mass or diet. The data above are obtained from the National Kidney Disease Education Program (NKDEP) which additionally recommends that when the eGFR is used in patients with extremes of body mass index for purposes of drug dosing, the eGFR should be multiplied by the estimated BMI. CHEM PANEL CO2 29 meq/L 24 - 32 06/11 [facility] CHEM PANEL Potassium 3.6 meq/L 3.5 - 5.1 06/11 Lvl [facility] CHEM PANEL Chloride Lvl 102 meq/L 95 - 109 06/11 [facility] CHEM PANEL Calcium Lvl 8.8 mg/dL 8.5 - 10.5 06/11 [facility] CHEM PANEL Sodium Lvl 139 meq/L 135 - 145 06/11 [facility] CHEM PANEL Creatinine 0.65 mg/dL 0.50 - 06/11 Lvl 1.40 [facility] CHEM PANEL BUN 11 mg/dL 7 - 22 06/11 [facility] CHEM PANEL Glucose Lvl 81 mg/dL 70 - 99 06/11 [facility] CHEM PANEL AGAP 11.6 meq/L 10.0 - 06/11 [facility] 20.0 [facility] ENDOCRINOL S Preg Negative Negative 06/11 OG [facility] *NA* (06/11/18 12:06 PM) HEMATOLOGY MPV 7.8 fL 7.4 - 10.4 06/11 [facility] HEMATOLOGY Platelet 325 K/CMM 133 - 450 06/11 [facility] HEMATOLOGY RDW 14.6 % 11.5 - 06/11 [facility] 14. [facility] HEMATOLOGY MCHC 32.8 g/dL 32.0 - 06/11 [facility] 36.0 [facility] HEMATOLOGY MCH 27.4 pg 27.0 - 06/11 31.0 [facility] HEMATOLOGY RBC 4.41 M/CMM 4.20 - 06/11 [facility] 5.40 [facility] HEMATOLOGY WBC 12.2 K/CMM 3.7 - 10.4 06/11 [facility] HEMATOLOGY MCV 83.3 fL 80.0 - 06/11 98.0 [facility] HEMATOLOGY Hgb 12.0 g/dL 12.0 - 06/11 16.0 [facility] HEMATOLOGY Hct 36.7 % 36.0 - 06/11 48.0 [facility] HEMATOLOGY Monocytes # 1.1 K/CMM 0.0 - 0.8 06/11 [facility] HEMATOLOGY Eosinophils 0.2 K/CMM 0.0 - 0.5 06/11 [facility] HEMATOLOGY Basophils # 0.1 K/CMM 0.0 - 0.2 06/11 [facility] HEMATOLOGY Eosinophils 1.9 % 0.0 - 4.0 06/11 [facility] HEMATOLOGY Monocytes 8.7 % 2.0 - 12.0 06/11 [facility] HEMATOLOGY Basophils 0.7 % 0.0 - 1.0 06/11 [facility] HEMATOLOGY Lymphocytes 29.7 % 20.0 - 06/11 [facility] 40.0 [facility] HEMATOLOGY Segs 59.0 % 45.0 - 06/11 [facility] 75.0 [facility] HEMATOLOGY Lymphocytes 3.6 K/CMM 1.0 - 5.5 06/11 MH [facility] HEMATOLOGY Neutrophils 7.2 K/CMM 1.5 - 8.1 06/11 # [facility] URINE AND UA Spec Grav 1.021 <=1.030 06/11 [facility] URINE AND UA Color Yellow Yellow 06/11 [facility] (06/11/18 12:06 PM) URINE AND UA Turbidity Slight Clear 06/11 [facility] *ABN* (06/11/18 12:06 PM) URINE AND UA pH 7.0 5.0 - 8.0 06/11 [facility] URINE AND UA <=1.0 0.1 - 1.0 06/11 STOOL Urobilinogen mg/dL [facility] URINE AND UA Nitrite Negative Negative 06/11 [facility] (06/11/18 12:06 PM) URINE AND UA Leuk Est Negative Negative 06/11 [facility] (06/11/18 12:06 PM) URINE AND UA Sq Epi Occasional Few /LPF 06/11 STOOL /LPF [facility] URINE AND UA WBC 2 /HPF 0 - 5 06/11 [facility] URINE AND UA RBC 3 /HPF 0 - 2 06/11 [facility] URINE AND UA Protein Negative Negative 06/11 [facility] (06/11/18 12:06 PM) URINE AND UA Glucose Negative Negative 06/11 [facility] *NA* (06/11/18 12:06 PM) URINE AND UA Bili Negative Negative 06/11 [facility] *NA* (06/11/18 12:06 PM) URINE AND UA Blood Moderate Negative 06/11 [facility] *ABN* (06/11/18 12:06 PM) URINE AND UA Ketones Negative Negative 06/11 [facility] *NA* (06/11/18 12:06 PM) URINE AND UA Mucus Moderate None Seen 06/11 [facility] /LPF /LPF [facility] URINE AND UA Trans Epi 1 /LPF <=0 /LPF 06/11 [facility] Pelvis w Pelvis w Study: Pelvis w Transvag and Pelvis Doppler US 06/11/2018 10 :48 CDT 06/11 - Transvag Transvag and /2018 - [place] and Pelvis Pelvis Ordering Physician: Nilo Holm US Doppler US Clinical Indication: Vaginal Bleeding - Dysfunctional uterine bleeding with lower abdominal discomfort and low back pain. Read by: Celia Swanson MD Dictated Date/time: 06/11/18 12:54 Comparison: None Electronically Signed by: Celia Swanson MD 06/11/18 12:56 FINAL REPORT TECHNIQUE: Grayscale, color flow Doppler and duplex Doppler ultrasound with spectral waveform analysis of the pelvis is performed. Endovaginal imaging is performed to better evaluate the endometrial cavity and ovaries. Findings: The uterus is normal in size, measuring 9.6 cm in length by 5.0 cm AP by 6.6 cm TR. Myometrial echotexture is normal. No myometrial masses are identified. The endometrial cavity is empty and the endomet rial complex is normal in thickness, measuring 0.8 cm. The right ovary is normal in size and echogenicity, measuring 3.6 x 3.6 x 2.9 cm. The left ovary is normal in size and echogenicity, measuring 2.9 x 2.6 x 2.3 cm. No adnexal mass lesions are visualized. There is blood flow within both ovaries. There is no free fluid within the cul-de-sac. IMPRESSION: Normal transabdominal and endovaginal ultrasound examination of the pelvis. SL: [id number] BLOOD BANK Antibody Negative 03/02 RESULTS Scrn /2017 [facility] (03/02/17 3:15 PM) BLOOD BANK ABO/Rh O NEG 03/02 RESULTS /2017 [facility] ENDOCRINOL hCG Tot 1220 03/02 OGY mIU/mL /2017 [facility] URINE AND UA <=1.0 0.1 - 1.0 03/02 [facility]OOL Urobilinogen mg/dL /2017 [facility] URINE AND UA Sq Epi Few /LPF Few /LPF 03/02 STOOL /2017 [facility] URINE AND UA Leuk Est Negative Negative 03/02 STOOL /2017 [facility] (03/02/17 11:56 AM) URINE AND UA Nitrite Negative Negative 03/02 STOOL /2017 [facility] (03/02/17 11:56 AM) URINE AND UA Blood Negative Negative 03/02 STOOL /2017 [facility] (03/02/17 11:56 AM) URINE AND UA RBC 3 /HPF 0 - 2 03/02 STOOL /2017 [facility] URINE AND UA WBC null 0 - 5 03/02 STOOL [facility] URINE AND UA Mucus Few /LPF None Seen 03/02 STOOL /LPF /2017 [facility] URINE AND UA Bili Negative Negative 03/02 [facility] *NA* (03/02/17 11:56 AM) URINE AND UA Ketones Negative Negative 03/02 [facility] mg/dL mg/dL [facility] URINE AND UA Glucose Negative Negative 03/02 [facility] mg/dL mg/dL [facility] URINE AND UA Protein Negative Negative 03/02 [facility] mg/dL mg/dL [facility] URINE AND UA pH 8.0 5.0 - 8.0 03/02 [place] URINE AND UA Spec Grav 1.015 <=1.030 03/02 [facility] URINE AND UA Turbidity Clear Clear 03/02 [facility] (03/02/17 11:56 AM) URINE AND UA Color Yellow Yellow 03/02 [facility] *NA* (03/02/17 11:56 AM) URINE CHEM U Preg Positive Negative 03/02 [facility] *ABN* (03/02/17 11:56 AM) CHEM PANEL B/C Ratio 11 6 - 25 03/02 [facility] CHEM PANEL AGAP 10.1 meq/L 10.0 - 03/02 20.0 [facility] CHEM PANEL Globulin 3.6 g/dL 2.7 - 4.2 03/02 [facility] CHEM PANEL A/G Ratio 1.0 0.7 - 1.6 03/02 [facility] CHEM PANEL eGFR 124 03/02 Result Comment: The eGFR is calculated using the CKD-EPI formula. In most young, healthy individuals the eGFR will be >90 mL/ min/1.73m2. The eGFR declines with age. An eGFR of 60-89 may be normal in mL/min/1. some populations, particularly the elderly, for whom the CKD-EPI formula has not been extensively validated. Use of the eGFR is not recommended in the following populations: [facility] 3m2 Individuals with unstable creatinine concentrations, including patients and those with serious co-morbid conditions. Patients with extremes in muscle mass or diet. The data above are obtained from the National Kidney Disease Education Program (NKDEP) which additionally recommends that when the eGFR is used in patients with extremes of body mass index for purposes of drug dosing, the eGFR should be multiplied by the estimated BMI. CHEM PANEL AST 12 unit/L 0 - 37 03/02 [facility] CHEM PANEL ALT 15 unit/L 0 - 65 03/02 [facility] CHEM PANEL Bili Total 0.5 mg/dL 0.2 - 1.3 03/02 [facility] CHEM PANEL Alk Phos 77 unit/L 39 - 136 03/02 [facility] CHEM PANEL Chloride Lvl 103 meq/L 95 - 109 03/02 [facility] CHEM PANEL Potassium 4.1 meq/L 3.5 - 5.1 03/02 Lvl [facility] CHEM PANEL Sodium Lvl 137 meq/L 135 - 145 03/02 [facility] CHEM PANEL Creatinine 0.57 mg/dL 0.50 - 03/02 Lvl 1.40 [facility] CHEM PANEL BUN 6 mg/dL 7 - 22 03/02 [facility] CHEM PANEL Albumin Lvl 3.7 g/dL 3.5 - 5.0 03/02 [facility] CHEM PANEL Calcium Lvl 9.2 mg/dL 8.5 - 10.5 03/02 [facility] CHEM PANEL Total 7.3 g/dL 6.4 - 8.4 03/02 [facility] CHEM PANEL CO2 28 meq/L 24 - 32 03/02 [facility] CHEM PANEL Glucose Lvl 89 mg/dL 70 - 99 03/02 [facility] CHEM PANEL Lipase Lvl 117 unit/L 73 - 393 03/02 [facility] CHEM PANEL Amylase Lvl 68 unit/L 25 - 115 03/02 [facility] ENDOCRINOL S Preg Positive Negative 03/02 [facility] *NA* (03/02/17 11:44 AM) HEMATOLOGY Monocytes 8.0 % 2.0 - 12.0 03/02 [facility] HEMATOLOGY Lymphocytes 23.4 % 20.0 - 03/02 40.0 [facility] HEMATOLOGY Segs 67.4 % 45.0 - 03/02 75. [facility] HEMATOLOGY Basophils 0.9 % 0.0 - 1.0 03/02 [facility] HEMATOLOGY Segs-Bands # 6.6 K/CMM 1.5 - 8.1 03/02 [facility] HEMATOLOGY Eosinophils 0.3 % 0.0 - 4.0 03/02 [facility] HEMATOLOGY Lymphocytes 2.3 K/CMM 1.0 - 5.5 03/02 # /2017 [facility] HEMATOLOGY Monocytes # 0.8 K/CMM 0.0 - 0.8 03/02 [facility] Basophils # 0.1 K/CMM 0.0 - 0.2 03/02 [facility] RBC 4.50 M/CMM 4.20 - 03/02 5.40 /2017 [facility] WBC 9.8 K/CMM 3.7 - 10.4 03/02 [facility] Hct 38.0 % 36.0 - 03/02 48.0 [facility] Hgb 12.9 g/dL 12.0 - 03/02 16.0 /2017 [facility] MCV 84.6 fL 80.0 - 03/02 98.0 [facility] RDW 13.5 % 11.5 - 03/02 14.5 [facility] MPV 7.1 fL 7.4 - 10.4 03/02 [facility] MCHC 33.9 g/dL 32.0 - 03/02 36.0 [facility] MCH 28.7 pg 27.0 - 03/02 31.0 [facility] Platelet 420 K/CMM 133 - 450 03/02 [facility] Preg < Preg < 14wks TRANSABDOMINAL AND TRANSVAGINAL PELVIC ULTRASOUND WITH DOPPLER 03/02 - 14wks sing sing gest w - [facility] gest w transvag/Dop transvag/D US op US TECHNIQUE: Pelvic ultrasound was performed with color, Doppler, and hunt scale imaging. Transabdominal and transvaginal technique performed. Read by: Cecilio Person MD Dictated Date/time: 03/02/17 14:11 Electronically Signed by: Cecilio Person MD 03/02/17 14:19 FINAL REPORT HISTORY: 31 year-old female with severe pelvic pain; HCG 1220; history of tubal ligation COMPARISON: None available. FINDINGS: Transabdominal imaging reveals no intrauterine . Transvaginal imaging demonstrates no intrauterine . The mitral stripe is normal in thickness and measures 10 mm. No uterine fibroids are seen. Both ovaries are normal in size and appearance with several small follicles. The right ovary measures 3.7 x 2.7 x 2.6 cm. The left ovary measures 3.5 x 1.9 x 2.7 cm. Arterial and venous waveforms are seen within both ovaries on Doppler imaging. There is a complex solid and cystic mass in the right adnexa adjacent to the right ovary measuring 3.5 x 2.4 x 3.0 cm. Moderate complex heterogenous free fluid in the cul-de-sac, likely hemoperitoneum. IMPRESSION: 1. No intrauterine . 2. A 3.5 cm complex solid and cystic mass in the right adnexa adjacent to the right ovary with moderate complex free fluid in the cul-de-sac. Findings most compatible with ruptured right ectopic and pelvic hemoperitoneum. Ruptured right ectopic reported to patient's physician in the ER at time of dictation. SL: [id number] BLOOD BANK ABO/Rh O NEG 05/06 [facility] CHEM PANEL eGFR 118 05/06 1Result Comment: The eGFR is calculated using the CKD-EPI formula. In most young, healthy individuals the eGFR will be > 90 mL/min/1.73m2. The eGFR declines with age. An eGFR of 60-89 may be normal in mL/min/1. some populations, particularly the elderly, for whom the CKD-EPI formula has not been extensively validated. Use of the eGFR is not recommended in the following populations: [facility] 3m2 Individuals with unstable creatinine concentrations, including patients and those with serious co-morbid conditions. Patients with extremes in muscle mass or diet. The data above are obtained from the National Kidney Disease Education Program (NKDEP) which additionally recommends that when the eGFR is used in patients with extremes of body mass index for purposes of drug dosing, the eGFR should be multiplied by the estimated BMI. CHEM PANEL Albumin Lvl 4.3 g/dL 3.5 - 5.0 05/06 [facility] CHEM PANEL Chloride Lvl 100 meq/L 95 - 109 05/06 [facility] CHEM PANEL Sodium Lvl 134 meq/L 135 - 145 05/06 [facility] CHEM PANEL Creatinine 0.7 mg/dL 0.5 - 1.4 05/06 [facility] CHEM PANEL BUN 9 mg/dL 7 - 22 05/06 [facility] CHEM PANEL ALT 17 unit/L 0 - 65 05/06 [facility] CHEM PANEL Total 8.1 g/dL 6.4 - 8.4 05/06 [facility] CHEM PANEL Calcium Lvl 10.0 mg/dL 8.5 - 10.5 05/06 [facility] CHEM PANEL CO2 28 meq/L 24 - 32 05/06 [facility] CHEM PANEL Glucose Lvl 85 mg/dL 70 - 99 05/06 2Interpretive Data: Adult reference range values reflect the clinical guidelines of the [place] [employer]. [facility] CHEM PANEL Bili Total 0.3 mg/dL 0.2 - 1.3 05/06 [facility] CHEM PANEL Alk Phos 97 unit/L 39 - 136 05/06 [facility] CHEM PANEL AST 17 unit/L 0 - 37 05/06 [facility] CHEM PANEL Potassium 3.8 meq/L 3.5 - 5.1 05/06 Lvl /2014 [facility] CHEM PANEL B/C Ratio 13 6 - 25 05/06 [facility] CHEM PANEL AGAP 9.8 meq/L 10.0 - 05/06 MH 20.0 [facility] CHEM PANEL A/G Ratio 1.1 0.7 - 1.6 05/06 [facility] CHEM PANEL Globulin 3.8 g/dL 2.0 - 4.0 05/06 [facility] ENDOCRINOL hCG Tot 38 mIU/mL 05/06 3Interpretive Data: Reference Range : Male 0 - 5 mIU/mL [facility] Non- Female 0 - 5 mIU/mL Note: hCG result should be used in conjunction with symptoms, results of other tests, and clinical impressions. Weeks of Gestation hCG (mIU/mL) 3 6 - 71 4 10-750 5 217 - 7,138 6 158 -31,795 7 3,697 - 163,563 8 32,065 - 149,571 9 63,803 - 151,410 10 46,506 - 186,977 11 27,832 - 210,612 14 13,950 - 62,530 15 12,039 - 70,971 16 9,040 - 56,451 17 8,175 - 55,868 18 8,099 - 58,176 HEMATOLOGY WBC 8.4 K/CMM 3.7 - 10.4 05/06 [facility] HEMATOLOGY RBC 5.16 M/CMM 4.20 - 05/06 MH 5.40 /2014 [facility] HEMATOLOGY Hgb 14.9 g/dL 12.0 - 05/06 MH 16.0 /2014 [facility] HEMATOLOGY MCV 86.4 fL 80.0 - 05/06 MH 98.0 /2014 [facility] HEMATOLOGY Hct 44.6 % 36.0 - 05/06 MH 48.0 /2014 [facility] HEMATOLOGY MCHC 33.3 g/dL 32.0 - 05/06 MH 36.0 /2014 [facility] HEMATOLOGY MCH 28.8 pg 27.0 - 05/06 MH 31.0 /2014 [facility] HEMATOLOGY RDW 15.3 % 11.5 - 05/06 MH 14.5 /2014 [facility] HEMATOLOGY Platelet 426 K/CMM 133 - 450 05/06 [facility] HEMATOLOGY MPV 7.6 fL 7.4 - 10.4 05/06 /2014 [facility] HEMATOLOGY Basophils 0.7 % 0.0 - 1.0 05/06 /2014 [facility] HEMATOLOGY Segs-Bands # 4.7 K/CMM 1.5 - 8.1 05/06 /2014 [facility] HEMATOLOGY Eosinophils 0.1 K/CMM 0.0 - 0.5 05/06 MH # /2014 [facility] HEMATOLOGY Monocytes # 0.8 K/CMM 0.0 - 0.8 05/06 /2014 [facility] HEMATOLOGY Lymphocytes 2.7 K/CMM 1.0 - 5.5 05/06 MH # /2014 [facility] HEMATOLOGY Basophils # 0.1 K/CMM 0.0 - 0.2 05/06 /2014 [facility] HEMATOLOGY Eosinophils 1.5 % 0.0 - 4.0 05/06 [facility] HEMATOLOGY Monocytes 9.1 % 2.0 - 12.0 05/06 [facility] HEMATOLOGY Segs 55.9 % 45.0 - 05/06 75.0 [facility] HEMATOLOGY Lymphocytes 32.8 % 20.0 - 05/06 40.0 [facility] Preg < Preg < 14wks Name: JANINE MONROE 05/06 - 14wks sing [place]ber [place] w /2014 - [facility] gest w transvag/Dop transvag/D US op US : 1985 Read by: Radhames Allen MD Dictated Date/time: 05/06/14 13:40 SEX: F Electronically Signed by: Radhames Allen MD 05/06/14 13:41 FINAL REPORT Ordering Physician: Amee Claire Preg < 14wks single ges w/transvag and D : May 06, 2014 01:39:00 PM. CLINICAL INDICATION: Positive test in a patient who has had bilateral tubal ligation Comparison Examination: 04/26/2014 TECHNIQUE: A real-time transabdominal and transvaginal sonographic evaluation of the pelvis was performed. The ovaries and adnexa were not well seen on the transabdominal study and transvaginal assessment was therefore warranted. FINDINGS: The transabdominal images reveal a normal bladder. The uterus is anteverted. The transvaginal images demonstrate that the uterus is normal in echotexture and measures 7.6 x 5.2 x 3.8 cm. The endometrial stripe is sonographically unremarkable, measuring 6 mm. There are no uterine masses. The ovaries are normal in contour and morphology and there is normal ovarian flow. The right ovary measures 3 x 2.9 x 2.3 cm. The left ovary measures 2.5 x 2.3 x 2.3 cm. There is a simple left ovarian cyst measuring 1.2 cm. There are no adnexal lesions. No free fluid is identified. IMPRESSION: No sonographic evidence for an intrauterine or extrauterine . Simple small left ovarian cyst. Followup is recommended with serial beta-hCG levels and/or sonography. SL: 23 MOLECULAR N gonorrhea Negative 4 Negative 04/27 4Interpretive Data: The APTIMA assay is a target amplification nucleic acid probe test utilizing target capture for the qualitative detection and differentiation of ribosomal RNA from Neisseria gonorrhoe DIAGNOSTIC by Rashaad Det /2014 ae to aid in the diagnosis of disease from symptomatic and asymptomatic individuals using the PANTHER System. [facility] (APTIMA) *NA* This assay utilizes FDA cleared IVD reagents. Performance characteristics have been verified by the [facility] within [facility]. The [facility] is author ized under the Clinical Laboratory Improvement Amendments of 1988 ( CLIA-88) to perform high complexity testing. (04/27/14 1:56 AM) MOLECULAR C Negative 5 Negative 04/27 5Interpretive Data: The APTIMA assay is a target amplification nucleic acid probe test utilizing target capture for the qualitative detection and differentiation of ribosomal RNA from Chlamydia trachomat DIAGNOSTIC trachomatis /2014 is to aid in the diagnosis of disease from symptomatic and asymptomatic individuals using the PANTHER System. [facility] by Amp Det *NA* This assay utilizes FDA cleared IVD reagents. Performance characteristics have been verified by the [facility] within [facility]. The [facility] is author (ELHAM) ized under the Clinical Laboratory Improvement Amendments of 1988 (CLIA-88) to perform high complexity testing. (04/27/14 1:56 AM) MOLECULAR Source Vaginal 04/27 DIAGNOSTIC APTIMA [facility] *NA* (04/27/14 1:56 AM) BLOOD BANK Antibody Negative 04/27 RESULTS Scrn [facility] (04/26/14 11:46 PM) BLOOD BANK ABO/Rh O NEG 04/27 RESULTS /2014 [facility] ELECTROLYT AGAP 12.5 meq/L 10.0 - 04/27 ES 20.0 /2014 [facility] ELECTROLYT B/C Ratio 11 6 - 25 04/27 ES [facility] ELECTROLYT A/G Ratio 1.2 0.7 - 1.6 04/27 ES [facility] ELECTROLYT Globulin 3.4 g/dL 2.0 - 4.0 04/27 ES [facility] ELECTROLYT eGFR 118 04/27 1Result Comment: The eGFR is calculated using the CKD-EPI formula. In most young, healthy individuals the eGFR will be > 90 mL/min/1.73m2. The eGFR declines with age. An eGFR of 60-89 may be normal in mL/min/1.7 /2014 some populations, particularly the elderly, for whom the CKD-EPI formula has not been extensively validated. Use of the eGFR is not recommended in the following populations: [facility] 3m2 Individuals with unstable creatinine concentrations, including patients and those with serious co-morbid conditions. Patients with extremes in muscle mass or diet. The data above are obtained from the National Kidney Disease Education Program (NKDEP) which additionally recommends that when the eGFR is used in patients with extremes of body mass index for purposes of drug dosing, the eGFR should be multiplied by the estimated BMI. ELECTROLYT CO2 22 meq/L 24 - 32 04/27 ES [facility] ELECTROLYT Total 7.5 g/dL 6.4 - 8.4 04/27 ES Protein [facility] ELECTROLYT ALT 12 unit/L 0 - 65 04/27 ES [facility] ELECTROLYT Calcium Lvl 8.9 mg/dL 8.5 - 10.5 04/27 [facility] ELECTROLYT Albumin Lvl 4.1 g/dL 3.5 - 5.0 04/27 [facility] ELECTROLYT Alk Phos 90 unit/L 39 - 136 04/27 [facility] ELECTROLYT AST 10 unit/L 0 - 37 04/27 [facility] ELECTROLYT Bili Total 0.4 mg/dL 0.2 - 1.3 04/27 [facility] ELECTROLYT Glucose Lvl 94 mg/dL 70 - 99 04/27 2Interpretive Data: Adult reference range values reflect the clinical guidelines of the [place] [employer]. [facility] ELECTROLYT BUN 8 mg/dL 7 - 22 04/27 [facility] ELECTROLYT Sodium Lvl 138 meq/L 135 - 145 04/27 [facility] ELECTROLYT Chloride Lvl 107 meq/L 95 - 109 04/27 [facility] ELECTROLYT Creatinine 0.7 mg/dL 0.5 - 1.4 04/27 [facility] ELECTROLYT Potassium 3.5 meq/L 3.5 - 5.1 04/27 [facility] ENDOCRINOL hCG Tot 9 mIU/mL 04/27 3Interpretive Data: Reference Range: Male 0 - 5 mIU/mL [facility] Non- Female 0 - 5 mIU/mL Note: hCG result should be used in conjunction with symptoms, results of other tests, and clinical impressions. Weeks of Gestation hCG (mIU/mL) 3 6 - 71 4 10-750 5 217 - 7,138 6 158 -31,795 7 3,697 - 163,563 8 32,065 - 149,571 9 63,803 - 151,410 10 46,506 - 186,977 11 27,832 - 210,612 14 13,950 - 62,530 15 12,039 - 70,971 16 9,040 - 56,451 17 8,175 - 55,868 18 8,099 - 58,176 HEMATOLOGY Segs 89.3 % 45.0 - 03/04 MH 75.0 /2014 [facility] HEMATOLOGY Basophils # 0.1 K/CMM 0.0 - 0.2 / MH /2014 [facility] HEMATOLOGY Monocytes # 0.8 K/CMM 0.0 - 0.8 04/27 /2014 [facility] HEMATOLOGY Eosinophils 0.1 % 0.0 - 4.0 / /2014 [facility] HEMATOLOGY Monocytes 3.7 % 2.0 - 12.0 / /2014 [facility] HEMATOLOGY Lymphocytes 1.4 K/CMM 1.0 - 5.5 / MH # /2014 [facility] HEMATOLOGY Segs-Bands # 18.4 K/CMM 1.5 - 8.1 / /2014 [facility] HEMATOLOGY Lymphocytes 6.6 % 20.0 - 04/27 MH 40.0 /2014 [facility] HEMATOLOGY Basophils 0.3 % 0.0 - 1.0 / /2014 [facility] HEMATOLOGY MPV 7.9 fL 7.4 - 10.4 04/27 /2014 [facility] HEMATOLOGY Platelet 309 K/CMM 133 - 450 04/27 /2014 [facility] HEMATOLOGY RBC 4.65 M/CMM 4.20 - 03 MH 5.40 /2014 [facility] HEMATOLOGY WBC 20.6 K/CMM 3.7 - 10.4 03/ /2014 [facility] HEMATOLOGY Hgb 13.4 g/dL 12.0 - 04/27 16.0 /2014 [facility] HEMATOLOGY Hct 40.2 % 36.0 - 04/27 MH 48.0 /2014 [facility] HEMATOLOGY MCHC 33.3 g/dL 32.0 - 04/27 36.0 /2014 [facility] HEMATOLOGY MCH 28.8 pg 27.0 - 04/27 31.0 /2014 [facility] HEMATOLOGY MCV 86.4 fL 80.0 - 04/27 98.0 /2014 [facility] HEMATOLOGY RDW 14.9 % 11.5 - 04/27 14.5 /2014 [facility] URINE AND UA RBC 21-50 /HPF 0 - 2 04/27 STOOL /2014 [facility] URINE AND UA Mucus Few /LPF None Seen 04/27 STOOL /LPF /2014 [facility] URINE AND UA Bacteria Few /HPF None Seen 04/27 STOOL /HPF /2014 [facility] URINE AND Micro? Performed 04/27 STOOL /2014 [facility] (04/26/14 10:57 PM) URINE AND UA Leuk Est Trace Negative 04/27 STOOL /2014 [facility] *ABN* (04/26/14 10:57 PM) URINE AND UA Nitrite Negative Negative 04/27 STOOL [facility] (04/26/14 10:57 PM) URINE AND UA WBC 0-2 /HPF None Seen 04/27 STOOL /HPF /2014 [facility] URINE AND UA Sq Epi Few /LPF Few /LPF 04/27 STOOL [facility] URINE AND UA Ketones 15 mg/dL Negative 04/27 STOOL mg/dL [facility] URINE AND UA Glucose Negative Negative 04/27 STOOL [facility] (04/26/14 10:57 PM) URINE AND UA 1.0 EU/dL 0.1 - 1.0 04/27 STOOL Urobilinogen /2014 [facility] URINE AND UA Blood Large Negative 04/27 STOOL [facility] *ABN* (04/26/14 10:57 PM) URINE AND UA Bili Small Negative 04/27 STOOL [facility] *ABN* (04/26/14 10:57 PM) URINE AND UA pH 7.0 5.0 - 8.0 04/27 STOOL [facility] URINE AND UA Spec Grav 1.015 <=1.030 04/27 STOOL [facility] URINE AND UA Turbidity Slight Cloudy Clear 04/27 STOOL [facility] (04/26/14 10:57 PM) URINE AND UA Color Yellow Yellow 04/27 STOOL [facility] *NA* (04/26/14 10:57 PM) URINE AND UA Protein 100 mg/dL Negative 04/27 STOOL mg/dL [facility] URINE CHEM U Preg Positive Negative 04/27 [facility] *ABN* (04/26/14 10:57 PM) VIRAL - Influ A Negative Negative 04/27 SEROLOGY [facility] (04/26/14 10:57 PM) VIRAL - Influ B Negative 6 Negative 04/27 6Interpretive Data: Influenza A&B Antigen: SEROLOGY Due to the low sensitivity of this test a negative result does not exclude influenza virus infection. A diagnosis of influenza should be considered based on a patient's clinical presentation and empiric [facility] (04/26/14 10:57 PM) antiviral treatment should be considered, if indicated. If more conclusive testing is desired, follow-up confirmatory testing with either viral culture or PCR is warranted. BLOOD BANK Rhig Product available 2 08/14 2Result Comment: 08/14/2013 06 :05 [id number] RESULTS notified Jyoti Carvalho RN at 08/14/2013 06:05 br [facility] (08/14/13 5:46 AM) BLOOD BANK ABO/Rh O NEG 08/14 RESULTS [facility] BLOOD BANK SCREEN Neg 08/14 RESULTS /2013 [facility] (08/14/13 2:40 AM) HEMATOLOGY Hgb 9.6 g/dL 12.0 - 08/14 16.0 [facility] HEMATOLOGY Hct 26.5 % 36.0 - 08/14 48.0 [facility] DRUG U Amph Scr Negative Negative 08/13 SCREEN [facility] *NA* (08/13/13 12:15 PM) DRUG U Phencyc Negative Negative 08/13 MH SCREEN Scr [facility] *NA* (08/13/13 12:15 PM) DRUG U Cannab Scr Negative Negative 08/13 [facility] *NA* (08/13/13 12:15 PM) DRUG U Cocaine Negative Negative 08/13 SCREEN Scr [facility] *NA* (08/13/13 12:15 PM) DRUG U Opiate Scr Negative Negative 08/13 [facility] *NA* (08/13/13 12:15 PM) DRUG U Benzodia Positive Negative 08/13 SCREEN Scr [facility] *ABN* (08/13/13 12:15 PM) DRUG U Fabby Scr Negative Negative 08/13 [facility] *NA* (08/13/13 12:15 PM) DRUG UDS Note See Note 3 08/13 3Interpretive Data: Drugs reported as positive have not been confirmed by a second method and should be used for medical purposes only. To order [facility] (08/13/13 12:15 PM) confirmation, contact laboratory. note: Below are cut-off concentrations for all urine drugs of abuse performed in the laboratory. Some drugs listed in the table may not be included in this panel. Description Cut-off concentration Amphetamine 1000 ng/mL Barbiturates 200 ng/mL Benzodiazepines 300 ng/mL Cocaine metabolites 300 ng/mL Opiates 300 ng/mL Phencyclidine 25 ng/mL Propoxyphene 300 ng/mL Marijuana metabolites 50 ng/mL Methadone 300 ng/mL Urine alcohol 20 mg/dL URINE AND UA Leuk Est Negative Negative 08/13 STOOL [facility] (08/13/13 12:15 PM) URINE AND UA Nitrite Negative Negative 08/13 STOOL [facility] (08/13/13 12:15 PM) URINE AND UA Blood Negative Negative 08/13 STOOL [facility] (08/13/13 12:15 PM) URINE AND UA 0.2 EU/dL 0.1 - 1.0 08/13 STOOL Urobilinogen [facility] URINE AND UA Bili Negative Negative 08/13 STOOL [facility] *NA* (08/13/13 12:15 PM) URINE AND UA Ketones Negative Negative 08/13 STOOL mg/dL mg/dL [facility] URINE AND UA Glucose Negative Negative 08/13 STOOL mg/dL mg/dL [facility] URINE AND UA Spec Grav 1.015 <=1.030 08/13 STOOL [facility] URINE AND UA Turbidity Clear Clear 08/13 STOOL [facility] (08/13/13 12:15 PM) URINE AND UA Color Yellow Yellow 08/13 STOOL [facility] *NA* (08/13/13 12:15 PM) URINE AND UA Protein Negative Negative 08/13 STOOL mg/dL mg/dL [facility] URINE AND UA pH 7.5 5.0 - 8.0 08/13 STOOL [facility] URINE AND UA Bacteria Occasional None Seen 08/13 STOOL /HPF /HPF [facility] URINE AND UA Sq Epi Few /LPF Few /LPF 08/13 STOOL [facility] URINE AND UA WBC 0-2 /HPF None Seen 08/13 STOOL /HPF [facility] URINE AND UA RBC 0-2 /HPF 0 - 2 08/13 STOOL [facility] HEMATOLOGY RBC X 10x6 3.63 M/CMM 4.20 - 08/13 5.40 /2014 [facility] HEMATOLOGY Hgb 10.8 g/dL 12.0 - 08/13 16.0 /2013 [facility] HEMATOLOGY MCHC 34.3 g/dL 32.0 - 08/13 36.0 /2014 [facility] HEMATOLOGY Hct 31.5 % 36.0 - 08/13 48.0 /2014 [facility] HEMATOLOGY RDW 13.3 % 11.5 - 08/13 MH 14.5 [facility] HEMATOLOGY Platelet 294 K/CMM 133 - 450 08/13 [facility] HEMATOLOGY MPV 8.2 fL 7.4 - 10.4 08/13 [facility] HEMATOLOGY WBC X 10x3 18.4 K/CMM 3.7 - 10.4 08/13 [facility] HEMATOLOGY MCH 29.7 pg 27.0 - 08/13 MH 31.0 [facility] HEMATOLOGY MCV 86.7 fL 81.0 - 08/13 99.0 [facility] HEMATOLOGY Segs 83.2 % 45.0 - 08/13 MH 75.0 [facility] HEMATOLOGY Segs-Bands # 15.3 K/CMM 1.5 - 8.1 08/13 [facility] HEMATOLOGY Monocytes 5.6 % 2.0 - 12.0 08/13 [facility] HEMATOLOGY Lymphocytes 9.9 % 20.0 - 08/13 40.0 [facility] HEMATOLOGY Lymphocytes 1.8 K/CMM 1.0 - 5.5 08/13 [facility] HEMATOLOGY Monocytes # 1.0 K/CMM 0.0 - 0.8 08/13 [facility] HEMATOLOGY Basophils # 0.1 K/CMM 0.0 - 0.2 08/13 [facility] HEMATOLOGY Eosinophils 0.1 K/CMM 0.0 - 0.5 08/13 [facility] HEMATOLOGY Basophils 0.6 % 0.0 - 1.0 08/13 [facility] HEMATOLOGY Eosinophils 0.7 % 0.0 - 4.0 08/13 [facility] BLOOD BANK Rhig Reqd See Note 1 08/11 1Result Comment: 08/13/2013 20:06 TIALDRID RESULTS /2013 This patient is a candidate for RhO(D) immune globulin. [facility] (08/11/13 2:00 PM) BLOOD BANK ABO/Rh O NEG 08/11 RESULTS /2013 [facility] BLOOD BANK Antibody Negative 08/11 RESULTS Scrn [facility] (08/11/13 2:00 PM) HEMATOLOGY Lymphocytes 19.4 % 20.0 - 08/11 MH 40.0 [facility] HEMATOLOGY Monocytes 10.3 % 2.0 - 12.0 08/11 [facility] HEMATOLOGY Monocytes # 0.9 K/CMM 0.0 - 0.8 08/11 [facility] HEMATOLOGY Eosinophils 0.1 K/CMM 0.0 - 0.5 08/11 MH # /2013 [facility] HEMATOLOGY Eosinophils 1.2 % 0.0 - 4.0 08/11 /2013 [facility] HEMATOLOGY Basophils 0.4 % 0.0 - 1.0 08/11 /2013 [facility] HEMATOLOGY Lymphocytes 1.6 K/CMM 1.0 - 5.5 08/11 MH # /2014 [facility] HEMATOLOGY Segs-Bands # 5.8 K/CMM 1.5 - 8.1 08/11 /2013 [facility] HEMATOLOGY Segs 68.7 % 45.0 - 08/11 MH 75.0 /2013 [facility] HEMATOLOGY Platelet 274 K/CMM 133 - 450 08/11 /2013 [facility] HEMATOLOGY RDW 13.5 % 11.5 - 08/11 MH 14.5 [facility] HEMATOLOGY MCV 86.8 fL 81.0 - 08/11 99.0 /2013 [facility] HEMATOLOGY MCHC 34.7 g/dL 32.0 - 08/11 MH 36.0 /2013 [facility] HEMATOLOGY MCH 30.1 pg 27.0 - 08/11 MH 31.0 /2013 [facility] HEMATOLOGY Hct 29.6 % 36.0 - 08/11 MH 48.0 /2013 [facility] HEMATOLOGY Hgb 10.3 g/dL 12.0 - 08/11 16.0 /2013 [facility] HEMATOLOGY RBC X 10x6 3.42 M/CMM 4.20 - 08/11 MH 5.40 /2013 [facility] HEMATOLOGY WBC X 10x3 8.4 K/CMM 3.7 - 10.4 08/11 /2013 [facility] HEMATOLOGY MPV 8.0 fL 7.4 - 10.4 08/11 /2013 [facility] IMMUNOLOGY Hep Bs Ag Negative Negative 08/11 [facility] *NA* (08/11/13 2:00 PM) IMMUNOLOGY HIV 1/2 Ab Negative Negative 08/11 [facility] *NA* (08/11/13 2:00 PM) IMMUNOLOGY RPR Non Reactive Non 08/11 Reactive /2013 [facility] (08/11/13 2:00 PM) Ankle 3 Ankle 3 Name: JANINE MONROE 04/30 - views - [facility] : 1985 Read by: Radhames Allen Dictated Date/time: 04/30/13 19:48 SEX: F Electronically Signed by: Radhames Allen MD 04/30/13 19:48 FINAL REPORT Ordering Physician: Catrachito Good Ankle 3 views : Apr 30, 2013 07:35:00 PM. CLINICAL INDICATION: Pain and swelling Comparison Examination: None FINDINGS: AP, lateral, and oblique views of the ankle demonstrate normal alignment without fractures or dislocations. The tibiotalar joint and talar dome are unremarkable. The subtalar joint is unremarkable. Ther e is no ankle joint effusion. The mortise is normal. The distal tibia- fibular alignment is unremarkable. There is no soft tissue swelling or radiopaque foreign bodies. If there is further concern, recommend follow-up radiographs or MRI for complete assessment. IMPRESSION: No fractures or dislocation of the right ankle. SL: 23 CHEMISTRY BNP 24 pg/mL <=100 10/20 Normal 3Interpretive Data: Elevated results are in line with increasing severity of congestive heart failure. Minor elevations between 100 and 300 [facility] may be seen with Myocardial Ischemia, Sodium retaining drugs, and compensated/treated heart failure. CHEMISTRY BUN 7 mg/dL 7 - 22 10/20 Normal [facility] CHEMISTRY Glucose Lvl 91 mg/dL 70 - 99 10/20 Normal 2Interpretive Data: Adult reference range values reflect the clinical guidelines of the [place] [employer]. [facility] CHEMISTRY Potassium 3.4 meq/L 3.5 - 5.1 10/20 LOW Lvl [facility] CHEMISTRY Chloride Lvl 103 meq/L 95 - 109 10/20 Normal [facility] CHEMISTRY Creatinine 0.6 mg/dL 0.5 - 1.4 10/20 Normal Lvl [facility] CHEMISTRY Sodium Lvl 138 meq/L 135 - 145 10/20 Normal [facility] CHEMISTRY eGFR 125 10/20 NA 1Result Comment: The eGFR is calculated using the CKD-EPI formula. In most young, healthy individuals the eGFR will be > 90 mL/min/1.73m2. The eGFR declines with age. An eGFR of 60-89 may be normal in mL/min/1.7 some populations, particularly the elderly, for whom the CKD-EPI formula has not been extensively validated. Use of the eGFR is not recommended in the following populations: [facility] 3m2 Individuals with unstable creatinine concentrations, including patients and those with serious co-morbid conditions. Patients with extremes in muscle mass or diet. The data above are obtained from the National Kidney Disease Education Program (NKDEP) which additionally recommends that when the eGFR is used in patients with extremes of body mass index for purposes of drug dosing, the eGFR should be multiplied by the estimated BMI. CHEMISTRY Calcium Lvl 9.1 mg/dL 8.5 - 10.5 10/20 Normal [facility] CHEMISTRY CO2 29 meq/L 24 - 32 10/20 Normal [facility] CHEMISTRY AGAP 9.4 meq/L 10.0 - 10/20 LOW 20.0 [facility] HEMATOLOGY D-Dimer 0.43 ug/mL 10/20 NA 4Interpretive Data: In DIC, quantitative D-Dimer is generally greater than /2012 0.66 ug/mL FEU. Values of quantitative D-Dimer less than [facility] 0.40 ug/mL FEU have been reported to be associated with a low probability of deep vein thrombosis/pulmonary embolism. This test alone should not be used to rule out DVT/PE. Chest CTA Chest CTA Patient: JANINE MONROE 10/20 - pul emb pul emb /2012 - [facility] : 1985 Read by: Juan Oliveros Dictated Date/time: 10/20/12 07:39 Ordered By: Kellen Peñaloza Electronically Signed by: Juan Oliveros DO 10/20/12 07:44 FINAL REPORT Date Received: Oct 20, 2012 12:32:00 AM Comparison: Two view chest acquired October 19, 2012 Clinical Indications: Chest pain History: See Clinic Indication Procedure: Chest CTA pulm emb A preliminary report of this exam was faxed and electronically sent to the ordering/coverage physician by the [facility] on Oct 20, 2012 12:32:48 AM . TECHNIQUE: Sequential trans-axial images were obtained with a multi- detector helical CT after iodinated contrast administration. Coronal and sagittal reconstructions were obtained. 3D post- processing reconstructions were acquired. 100 cc of Omnipaque contrast material was used for the exam. FINDINGS: LUNG PARENCHYMA AND PLEURA: There are no lung nodules. There is no interstitial lung disease. There are no pleural effusions or pneumothorax. AIRWAY: The central airway is normal. MEDIASTINUM: There is no mediastinal lymphadenopathy. HEART: The cardiac chambers appear unremarkable. There is no pericardial effusion. VASCULAR STRUCTURES: There are no segmental pulmonary emboli noted. The main, right and left pulmonary arteries are normal. The great vessels are unremarkable. The thoracic aorta is unremarkable. There is no thoracic aortic dissection or aneurysm. The superior vena cava is unremarkable. Calcified right peritracheal 1.8 cm and left hilar 1.4 cm calcified granulomas reflecting old granulomatous disease is noted OSSEOUS STRUCTURES: There are no definite significant osseous abnormalities seen. VISUALIZED UPPER ABDOMEN: The visualized upper abdomen is unremarkable. OPINION: 1. No acute intrathoracic abnormalities. SL: 24 Chest 2 Chest 2 Name: JANINE MONROE 10/19 [facility] views [facility] /2012 - [facility] : 1985 Read by: Radhames Allen Dictated Date/time: 10/19/12 21:49 SEX: F Electronically Signed by: Radhames Allen MD 10/19/12 21:50 FINAL REPORT Ordering Physician: Kellen Peñaloza Chest 2 views : Oct 19, 2012 09:31:00 PM. CLINICAL INDICATION: Chest pain Comparison Examination: None FINDINGS: PA and lateral chest radiographs show normal lung volumes without consolidation, edema, pleural effusions or pneumothorax. The cardiomediastinal contours are normal. There are no clinically significant osseous abnormalities noted. IMPRESSION: Normal chest radiograph. SL: 23 URINALYSIS UA Glucose Negative Negative 06/01 Normal [facility] (05/31/2012 21:20:00) URINALYSIS UA Protein Negative Negative 06/01 Normal [facility] (05/31/2012 21:20:00) URINALYSIS UA Turbidity Clear Clear 06/01 Normal [facility] (05/31/2012 21:20:00) URINALYSIS UA Color Yellow Yellow 06/01 NA [facility] *NA* (05/31/2012 21:20:00) URINALYSIS UA Spec Grav 1.015 <=1.030 06/01 Normal [facility] URINALYSIS UA Leuk Est Negative Negative 06/01 Normal [facility] (05/31/2012 21:20:00) URINALYSIS UA Blood Trace Negative 06/01 ABN [facility] *ABN* (05/31/2012 21:20:00) URINALYSIS UA Nitrite Positive Negative 06/01 ABN [facility] *ABN* (05/31/2012 21:20:00) URINALYSIS UA 0.2 EU/dL 0.1 - 1.0 06/01 [facility] URINALYSIS UA Ketones 15 mg/dL Negative 06/01 ABN [facility] *ABN* (05/31/2012 21:20:00) URINALYSIS UA Bili Negative Negative 06/01 NA [facility] *NA* (05/31/2012 21:20:00) URINALYSIS UA pH 7.0 5.0 - 8.0 06/01 Normal [facility] URINALYSIS UA RBC 0-2 /HPF 0 - 2 06/01 Normal [facility] (05/31/2012 21:20:00) URINALYSIS Micro? Performed 06/01 Normal [facility] (05/31/2012 21:20:00) URINALYSIS UA WBC 3-5 /HPF None Seen 06/01 Normal [facility] (05/31/2012 21:20:00) URINALYSIS UA Sq Epi Occasional /LPF Few 06/01 Normal [facility] (05/31/2012 21:20:00) URINALYSIS UA Mucus Few /LPF None Seen 06/01 Normal [facility] (05/31/2012 21:20:00) URINALYSIS UA Bacteria Many /HPF None Seen 06/01 Normal [facility] (05/31/2012 21:20:00) CHEMISTRY hCG Tot 27 mIU/mL 06/01 3Interpretive Data: Reference Range : Male 0 - 5 mIU/mL [facility] Non- Female 0 - 5 mIU/mL Note: hCG result should be used in conjunction with symptoms, results of other tests, and clinical impressions. Weeks of Gestation hCG (mIU/mL) 3 6 - 71 4 10-750 5 217 - 7,138 6 158 -31,795 7 3,697 - 163,563 8 32,065 - 149,571 9 63,803 - 151,410 10 46,506 - 186,977 11 27,832 - 210,612 14 13,950 - 62,530 15 12,039 - 70,971 16 9,040 - 56,451 17 8,175 - 55,868 18 8,099 - 58,176 CHEMISTRY S Preg Positive Negative 06/01 NA [facility] *NA* (05/31/2012 19:30:00) CHEMISTRY AST 10 unit/L 0 - 37 06/01 Normal [facility] CHEMISTRY eGFR 126 06/01 NA 1Result Comment: The eGFR is calculated using the CKD-EPI formula. In most young, healthy individuals the eGFR will be > 90 mL/min/1.73m2. The eGFR declines with age. An eGFR of 60-89 may be normal in mL/min/1. some populations, particularly the elderly, for whom the CKD-EPI formula has not been extensively validated. Use of the eGFR is not recommended in the following populations: [facility] 3m2 Individuals with unstable creatinine concentrations, including patients and those with serious co-morbid conditions. Patients with extremes in muscle mass or diet. The data above are obtained from the National Kidney Disease Education Program (NKDEP) which additionally recommends that when the eGFR is used in patients with extremes of body mass index for purposes of drug dosing, the eGFR should be multiplied by the estimated BMI. CHEMISTRY CO2 25 meq/L 24 - 32 06/01 Normal [facility] CHEMISTRY Chloride Lvl 103 meq/L 95 - 109 06/01 Normal [facility] CHEMISTRY Calcium Lvl 9.0 mg/dL 8.5 - 10.5 06/01 Normal [facility] CHEMISTRY Potassium 3.5 meq/L 3.5 - 5.1 06/01 Normal Lvl [facility] CHEMISTRY Sodium Lvl 136 meq/L 135 - 145 06/01 Normal [facility] CHEMISTRY BUN 10 mg/dL 7 - 22 06/01 Normal [facility] CHEMISTRY Creatinine 0.6 mg/dL 0.5 - 1.4 06/01 Normal Lvl [facility] CHEMISTRY Glucose Lvl 104 mg/dL 70 - 99 06/01 NC 2Interpretive Data: Adult reference range values reflect the clinical guidelines of the [place] [employer]. [facility] CHEMISTRY Alk Phos 75 unit/L 39 - 136 06/01 Normal [facility] CHEMISTRY Bili Total 0.5 mg/dL 0.2 - 1.3 06/01 Normal [facility] CHEMISTRY Albumin Lvl 4.6 g/dL 3.5 - 5.0 04/08 Normal [facility] CHEMISTRY Total 8.1 g/dL 6.4 - 8.4 06/01 Normal MH [facility] CHEMISTRY ALT 16 unit/L 0 - 65 06/01 Normal [facility] CHEMISTRY B/C Ratio 17 6 - 25 04 Normal [facility] CHEMISTRY Globulin 3.5 g/dL 2.0 - 4.0 06/01 Normal [facility] CHEMISTRY AGAP 11.5 meq/L 10.0 - 06/01 Normal MH 20.0 [facility] CHEMISTRY A/G Ratio 1.3 0.7 - 1.6 06/01 Normal [facility] CHEMISTRY Lipase Lvl 165 unit/L 73 - 393 06/01 Normal [facility] HEMATOLOGY Tot Cell Ct 100 06/01 NA [facility] HEMATOLOGY RBC Morph Normal 06/01 Normal [facility] (05/31/2012 19:30:00) HEMATOLOGY Basophils 1.0 % 0.0 - 1.0 06/01 Normal [facility] HEMATOLOGY Monocytes 3.0 % 2.0 - 12.0 06/01 Normal [facility] HEMATOLOGY Plt Morph Normal 06/01 Normal [facility] (05/31/2012 19:30:00) HEMATOLOGY Atypical 0.0 % <=0.0 06/01 Normal Lymph [facility] HEMATOLOGY Lymphocytes 10.0 % 20.0 - 06/01 LOW MH 40.0 /2012 [facility] HEMATOLOGY Bands 2.0 % 0.0 - 11.0 06/01 Normal [facility] HEMATOLOGY Segs 84.0 % 45.0 - 06/01 [place] MH 75.0 /2012 [facility] HEMATOLOGY Basophils # 0.2 K/CMM 0.0 - 0.2 06/01 Normal [facility] HEMATOLOGY Monocytes # 0.6 K/CMM 0.0 - 0.8 06/01 Normal [facility] HEMATOLOGY Lymphocytes 2.0 K/CMM 1.0 - 5.5 /08 Normal MH /2012 [facility] HEMATOLOGY Segs-Bands # 16.9 K/CMM 1.5 - 8.1 06/01 HI MH [facility] HEMATOLOGY RDW 13.5 % 11.5 - 04 Normal MH 14.5 [facility] HEMATOLOGY MCHC 33.9 g/dL 32.0 - 06/01 Normal MH 36.0 /2012 [facility] HEMATOLOGY MCH 29.8 pg 27.0 - 04/08 Normal MH 31.0 /2012 [facility] HEMATOLOGY MCV 87.8 fL 81.0 - 04 Normal 99.0 /2012 [facility] HEMATOLOGY MPV 7.8 fL 7.4 - 10.4 06/01 Normal [facility] HEMATOLOGY Platelet 350 K/CMM 133 - 450 06/01 Normal [facility] HEMATOLOGY WBC 19.7 K/CMM 3.7 - 10.4 06/01 HI /2012 [facility] HEMATOLOGY RBC 4.93 M/CMM 4.20 - 04 Normal MH 5.40 /2012 [facility] HEMATOLOGY Hct 43.3 % 36.0 - 04 Normal 48.0 /2012 [facility] HEMATOLOGY Hgb 14.7 g/dL 12.0 - 04 Normal 16.0 [facility] CHEMISTRY Alk Phos 45 U/L 39 - 136 04/19 Normal [facility] CHEMISTRY Bili Total 0.3 mg/dL 0.2 - 1.3 04/19 Normal [facility] CHEMISTRY AST 10 U/L 0 - 37 04/19 Normal [facility] CHEMISTRY Albumin Lvl 3.6 g/dL 3.5 - 5.0 04/19 Normal [facility] CHEMISTRY Chloride Lvl 104 meq/L 95 - 109 04/19 Normal [facility] CHEMISTRY CO2 30 meq/L 24 - 32 04/19 Normal [facility] CHEMISTRY Calcium Lvl 8.1 mg/dL 8.5 - 10.5 04/19 LOW [facility] CHEMISTRY Total 6.0 g/dL 6.4 - 8.4 04/19 LOW [facility] CHEMISTRY Potassium 3.6 meq/L 3.5 - 5.1 04/19 Normal Lvl [facility] CHEMISTRY Sodium Lvl 141 meq/L 135 - 145 04/19 Normal [facility] CHEMISTRY Glucose Lvl 80 mg/dL 04/19 NA 1Interpretive Data: [facility] Reference Ranges : 0 - 7 days : 41 - 90 mg/dL7 days - 150 yrs : 70 - 99 mg/dL (fasting), based on the clinical recommendatio ns of the [place] [employer]. CHEMISTRY BUN 7 mg/dL 7 - 22 04/19 Normal [facility] CHEMISTRY Creatinine 0.7 mg/dL 0.5 - 1.4 04/19 Normal Lvl [facility] CHEMISTRY ALT 16 U/L 0 - 65 04/19 Normal MH /2011 [facility] CHEMISTRY Globulin 2.4 g/dL 2.0 - 4.0 04/19 Normal MH /2011 [facility] CHEMISTRY A/G Ratio 1.5 0.7 - 1.6 04/19 Normal MH /2011 [facility] CHEMISTRY AGAP 10.6 meq/L 10.0 - 04/19 Normal MH 20.0 [facility] CHEMISTRY B/C Ratio 10 6 - 25 04/19 Normal /2011 [facility] HEMATOLOGY Basophils 0.7 % 0.0 - 1.0 04/19 Normal MH /2011 [facility] HEMATOLOGY Segs-Bands # 2.7 K/CMM 1.5 - 8.1 04/19 Normal MH /2011 [facility] HEMATOLOGY Monocytes # 0.7 K/CMM 0.0 - 0.8 04/19 Normal MH /2011 [facility] HEMATOLOGY Eosinophils 0.2 K/CMM 0.0 - 0.5 04/19 Normal MH # /2011 [facility] HEMATOLOGY Basophils # 0.0 K/CMM 0.0 - 0.2 04/19 Normal MH /2011 [facility] HEMATOLOGY Lymphocytes 3.3 K/CMM 1.0 - 5.5 04/19 Normal MH # /2011 [facility] HEMATOLOGY Segs 39.1 % 45.0 - 04/19 LOW MH 75.0 /2011 [facility] HEMATOLOGY Monocytes 10.0 % 2.0 - 12.0 04/19 Normal MH /2011 [facility] HEMATOLOGY Lymphocytes 47.4 % 20.0 - 04/19 [place] MH 40.0 [facility] HEMATOLOGY Eosinophils 2.8 % 0.0 - 4.0 04/19 Normal MH /2011 [facility] HEMATOLOGY MPV 8.0 fL 7.4 - 10.4 04/19 Normal MH /2011 [facility] HEMATOLOGY Platelet 282 K/CMM 133 - 450 04/19 Normal MH /2011 [facility] HEMATOLOGY WBC 7.0 K/CMM 3.7 - 10.4 04/19 Normal MH /2011 [facility] HEMATOLOGY RBC 3.81 M/CMM 4.20 - 04/19 LOW MH 5.40 /2011 [facility] HEMATOLOGY Hgb 11.4 g/dL 12.0 - 04/19 LOW MH 16.0 /2011 [facility] HEMATOLOGY Hct 34.0 % 36.0 - 04/19 LOW MH 48.0 /2011 [facility] HEMATOLOGY MCV 89.2 fL 81.0 - 04/19 Normal MH 99.0 /2011 [facility] HEMATOLOGY MCH 30.0 pg 27.0 - 04/19 Normal MH 31.0 [facility] HEMATOLOGY RDW 13.0 % 11.5 - 02 Normal MH 14.5 [facility] HEMATOLOGY MCHC 33.7 g/dL 32.0 - 04/19 Normal MH 36.0 [facility] CHEMISTRY AST 11 U/L 0 - 37 04/16 Normal [facility] CHEMISTRY Alk Phos 61 U/L 39 - 136 04/16 Normal [facility] CHEMISTRY Bili Total 0.5 mg/dL 0.2 - 1.3 04/16 Normal [facility] CHEMISTRY Sodium Lvl 139 meq/L 135 - 145 04/16 Normal [facility] CHEMISTRY Potassium 3.6 meq/L 3.5 - 5.1 04/16 Normal Lvl [facility] CHEMISTRY Chloride Lvl 106 meq/L 95 - 109 04/16 Normal [facility] CHEMISTRY Calcium Lvl 9.2 mg/dL 8.5 - 10.5 04/16 Normal [facility] CHEMISTRY CO2 21 meq/L 24 - 32 04/16 LOW [facility] CHEMISTRY Total 7.6 g/dL 6.4 - 8.4 04/16 Normal [facility] CHEMISTRY Albumin Lvl 4.5 g/dL 3.5 - 5.0 04/16 Normal [facility] CHEMISTRY ALT 18 U/L 0 - 65 04/16 Normal [facility] CHEMISTRY Glucose Lvl 90 mg/dL 04/16 NA 2Interpretive Data: [facility] Reference Ranges : 0 - 7 days : 41 - 90 mg/dL7 days - 150 yrs : 70 - 99 mg/dL (fasting), based on the clinical recommendatio ns of the [place] [employer]. CHEMISTRY BUN 9 mg/dL 7 - 22 04/16 Normal [facility] CHEMISTRY Creatinine 0.6 mg/dL 0.5 - 1.4 04/16 Normal Lvl [facility] CHEMISTRY AGAP 15.6 meq/L 10.0 - 04/16 Normal MH 20.0 [facility] CHEMISTRY B/C Ratio 15 6 - 25 04/16 Normal [facility] CHEMISTRY A/G Ratio 1.5 0.7 - 1.6 04/16 Normal [facility] CHEMISTRY Globulin 3.1 g/dL 2.0 - 4.0 04/16 Normal [facility] CHEMISTRY Lipase Lvl 160 U/L 73 - 393 04/16 Normal [facility] CHEMISTRY S Preg Negative Negative 04/16 NA MH /2011 [facility] *NA* (04/16/2011 11:35:00) HEMATOLOGY MPV 8.0 fL 7.4 - 10.4 04/16 Normal /2011 [facility] HEMATOLOGY WBC 8.8 K/CMM 3.7 - 10.4 04/16 Normal /2011 [facility] HEMATOLOGY RBC 4.45 M/CMM 4.20 - 04/16 Normal MH 5.40 /2011 [facility] HEMATOLOGY Hct 39.2 % 36.0 - 04/16 Normal MH 48.0 /2011 [facility] HEMATOLOGY Hgb 13.3 g/dL 12.0 - 04/16 Normal MH 16.0 [facility] HEMATOLOGY MCV 88.2 fL 81.0 - 04/16 Normal MH 99.0 /2011 [facility] HEMATOLOGY MCH 29.8 pg 27.0 - 04/16 Normal MH 31.0 /2011 [facility] HEMATOLOGY MCHC 33.8 g/dL 32.0 - 04/16 Normal MH 36.0 /2011 [facility] HEMATOLOGY Platelet 342 K/CMM 133 - 450 04/16 Normal /2011 [facility] HEMATOLOGY RDW 13.4 % 11.5 - 04/16 Normal MH 14.5 /2011 [facility] HEMATOLOGY Monocytes # 0.6 K/CMM 0.0 - 0.8 04/16 Normal /2011 [facility] HEMATOLOGY Eosinophils 0.0 K/CMM 0.0 - 0.5 04/16 Normal MH # /2011 [facility] HEMATOLOGY Basophils # 0.1 K/CMM 0.0 - 0.2 04/16 Normal /2011 [facility] HEMATOLOGY Eosinophils 0.5 % 0.0 - 4.0 04/16 Normal /2011 [facility] HEMATOLOGY Basophils 0.8 % 0.0 - 1.0 04/16 Normal /2011 [facility] HEMATOLOGY Lymphocytes 2.4 K/CMM 1.0 - 5.5 04/16 Normal MH # /2011 [facility] HEMATOLOGY Segs-Bands # 5.6 K/CMM 1.5 - 8.1 04/16 Normal /2011 [facility] HEMATOLOGY Segs 64.2 % 45.0 - 04/16 Normal MH 75.0 /2011 [facility] HEMATOLOGY Lymphocytes 27.9 % 20.0 - 04/16 Normal MH 40.0 /2011 [facility] HEMATOLOGY Monocytes 6.6 % 2.0 - 12.0 04/16 Normal [facility] URINALYSIS UA Spec Grav 1.020 <=1.030 04/16 Normal [facility] URINALYSIS UA Turbidity Clear Clear 04/16 Normal [facility] (04/16/2011 11:35:00) URINALYSIS UA Color Yellow Yellow 04/16 NA [facility] *NA* (04/16/2011 11:35:00) URINALYSIS UA pH 6.5 5.0 - 8.0 04/16 Normal [facility] URINALYSIS UA Blood Negative Negative 04/16 Normal [facility] (04/16/2011 11:35:00) URINALYSIS UA Glucose Negative Negative 04/16 Normal [facility] (04/16/2011 11:35:00) URINALYSIS UA Protein Trace Negative 04/16 ABN [facility] *ABN* (04/16/2011 11:35:00) URINALYSIS UA Bili Small Negative 04/16 ABN [facility] *ABN* (04/16/2011 11:35:00) URINALYSIS UA Ketones 40 mg/dL Negative 04/16 [facility] *ABN* (04/16/2011 11:35:00) URINALYSIS UA Leuk Est Negative Negative 04/16 Normal [facility] (04/16/2011 11:35:00) URINALYSIS UA Nitrite Negative Negative 04/16 Normal [facility] (04/16/2011 11:35:00) URINALYSIS UA 0.2 EU/dL 0.1 - 1.0 04/16 [facility] URINALYSIS UA Mucus Few /LPF None Seen 04/16 Normal [facility] (04/16/2011 11:35:00) URINALYSIS UA RBC None Seen 0 - 2 04/16 Normal [facility] (04/16/2011 11:35:00) URINALYSIS UA Bacteria Occasional /HPF None Seen 04/16 Normal [facility] (04/16/2011 11:35:00) URINALYSIS Micro? Performed 04/16 Normal [facility] (04/16/2011 11:35:00) URINALYSIS UA Sq Epi Few /LPF Few 04/16 Normal [facility] (04/16/2011 11:35:00) URINALYSIS UA WBC None Seen None Seen 04/16 Normal [facility] (04/16/2011 11:35:00) Vital Signs Vital Sign Value Date Comments Source Respitory Rate 20 06/11/2018 [facility] Heart Rate 96 06/11/2018 [facility] Systolic (mm Hg) 140 06/11/2018 [facility] Diastolic (mm Hg) 90 06/11/2018 [facility] Respitory Rate 20 06/11/2018 [facility] Heart Rate 90 06/11/2018 [facility] Systolic (mm Hg) 146 06/11/2018 [facility] Diastolic (mm Hg) 92 06/11/2018 [facility] Respitory Rate 20 06/11/2018 [facility] Heart Rate 92 06/11/2018 [facility] Systolic (mm Hg) 146 06/11/2018 [facility] Diastolic (mm Hg) 89 06/11/2018 [facility] Temperature Oral (F) 98.8 F 06/11/2018 [facility] BMI Calculated 17.01 06/11/2018 [facility] Height 165.1 cm 06/11/2018 [facility] Weight 46.364 06/11/2018 [facility] Systolic (mm Hg) 107 03/03/2017 [facility] Diastolic (mm Hg) 56 03/03/2017 [facility] Respitory Rate 18 03/03/2017 [facility] Temperature Oral (F) 98.5 F 03/03/2017 [facility] Heart Rate 74 03/03/2017 [facility] Respitory Rate 18 03/03/2017 [facility] Systolic (mm Hg) 102 03/03/2017 [facility] Diastolic (mm Hg) 57 03/03/2017 [facility] Heart Rate 72 03/03/2017 [facility] Systolic (mm Hg) 101 03/03/2017 [facility] Diastolic (mm Hg) 59 03/03/2017 [facility] Respitory Rate 16 03/03/2017 [facility] Heart Rate 71 03/03/2017 [facility] Temperature Oral (F) 98.8 F 03/03/2017 [facility] Height 165.1 cm 03/02/2017 [facility] Weight 45.727 03/02/2017 [facility] BMI Calculated 16.78 03/02/2017 [facility] Temperature Oral (F) 98.2 F 03/02/2017 [facility] Heart Rate 86 01/04/2016 [facility] Respitory Rate 20 01/04/2016 [facility] Systolic (mm Hg) 128 01/04/2016 [facility] Diastolic (mm Hg) 70 01/04/2016 [facility] BMI Calculated 18.34 01/04/2016 [facility] Respitory Rate 20 01/04/2016 [facility] Temperature Oral (F) 98.5 F 01/04/2016 [facility] Heart Rate 98 01/04/2016 [facility] Height 165.1 cm 01/04/2016 [facility] Weight 50 01/04/2016 [facility] Systolic (mm Hg) 132 01/04/2016 [facility] Diastolic (mm Hg) 80 01/04/2016 [facility] Systolic (mm Hg) 116 05/06/2014 [facility] Diastolic (mm Hg) 73 05/06/2014 [facility] Heart Rate 66 05/06/2014 [facility] Respitory Rate 16 05/06/2014 [facility] Heart Rate 80 05/06/2014 [facility] Respitory Rate 16 05/06/2014 [facility] Systolic (mm Hg) 103 05/06/2014 [facility] Diastolic (mm Hg) 64 05/06/2014 [facility] Heart Rate 79 05/06/2014 [facility] Respitory Rate 18 05/06/2014 [facility] Systolic (mm Hg) 112 05/06/2014 [facility] Diastolic (mm Hg) 75 05/06/2014 [facility] Temperature Oral (F) 96.5 F 05/06/2014 [facility] BMI Calculated 18.68 05/06/2014 [facility] Weight 50.909 05/06/2014 [facility] Height 165.1 cm 05/06/2014 [facility] Systolic (mm Hg) 118 04/27/2014 [facility] Diastolic (mm Hg) 65 04/27/2014 [facility] Heart Rate 100 04/27/2014 [facility] Systolic (mm Hg) 119 04/27/2014 [facility] Diastolic (mm Hg) 67 04/27/2014 [facility] Heart Rate 94 04/27/2014 [facility] Temperature Oral (F) 99.2 F 04/27/2014 [facility] Respitory Rate 20 04/27/2014 [facility] Systolic (mm Hg) 111 04/27/2014 [facility] Diastolic (mm Hg) 62 04/27/2014 [facility] Heart Rate 119 04/27/2014 [facility] Weight 50 04/27/2014 [facility] Height 165.1 cm 04/27/2014 [facility] BMI Calculated 18.34 04/27/2014 [facility] BMI Calculated 19.68 01/15/2014 [facility] Weight 53.636 01/15/2014 [facility] Height 165.1 cm 01/15/2014 [facility] Diastolic (mm Hg) 77 01/15/2014 [facility] Respitory Rate 18 01/15/2014 [facility] Temperature Oral (F) 97.2 F 01/15/2014 [facility] Heart Rate 90 01/15/2014 [facility] Systolic (mm Hg) 113 01/15/2014 [facility] Temperature Oral (F) 97.0 F 08/15/2013 [facility] Respitory Rate 20 08/15/2013 [facility] Heart Rate 88 08/15/2013 [facility] Systolic (mm Hg) 104 08/15/2013 [facility] Diastolic (mm Hg) 60 08/15/2013 [facility] Diastolic (mm Hg) 79 08/15/2013 [facility] Respitory Rate 20 08/15/2013 [facility] Systolic (mm Hg) 118 08/15/2013 [facility] Heart Rate 88 08/15/2013 [facility] Temperature Oral (F) 97.6 F 08/15/2013 [facility] Heart Rate 84 08/14/2013 [facility] Temperature Oral (F) 97.0 F 08/14/2013 [facility] Systolic (mm Hg) 90 08/14/2013 [facility] Diastolic (mm Hg) 57 08/14/2013 [facility] Respitory Rate 20 08/14/2013 [facility] Height 165.1 cm 08/13/2013 [facility] Weight 60.597 08/13/2013 [facility] BMI Calculated 22.23 08/13/2013 [facility] BMI Calculated 22.18 08/11/2013 [facility] Height 165.1 cm 08/11/2013 [facility] Weight 60.455 08/11/2013 [facility] Temperature Oral (F) 97.9 F 05/01/2013 [facility] Systolic (mm Hg) 114 05/01/2013 [facility] Diastolic (mm Hg) 66 05/01/2013 [facility] Heart Rate 82 05/01/2013 [facility] Respitory Rate 18 05/01/2013 [facility] Respitory Rate 18 05/01/2013 [facility] Temperature Oral (F) 97.9 F 05/01/2013 [facility] Diastolic (mm Hg) 72 05/01/2013 [facility] Heart Rate 75 05/01/2013 [facility] Systolic (mm Hg) 109 05/01/2013 [facility] Diastolic (mm Hg) 55 05/01/2013 [facility] Respitory Rate 18 05/01/2013 [facility] Systolic (mm Hg) 95 05/01/2013 [facility] Heart Rate 85 05/01/2013 [facility] Temperature Oral (F) 97.6 F 04/30/2013 [facility] BMI Calculated 19.18 04/30/2013 [facility] Weight 52.273 04/30/2013 [facility] Height 165.1 cm 04/30/2013 [facility] Temperature Oral (F) 98.0 F 10/20/2012 [facility] Respitory Rate 18 10/20/2012 [facility] Heart Rate 87 10/20/2012 [facility] Diastolic (mm Hg) 71 10/20/2012 [facility] Systolic (mm Hg) 116 10/20/2012 [facility] Temperature Oral (F) 98.3 F 10/20/2012 [facility] Heart Rate 90 10/20/2012 [facility] Diastolic (mm Hg) 57 10/20/2012 [facility] Systolic (mm Hg) 116 10/20/2012 [facility] Respitory Rate 20 10/20/2012 [facility] Weight 49.545 10/20/2012 [facility] Height 165.1 cm 10/20/2012 [facility] Height 165.1 cm 05/31/2012 [facility] Weight 48.636 05/31/2012 [facility] Diastolic (mm Hg) 65 04/19/2011 [facility] Systolic (mm Hg) 113 04/19/2011 [facility] Respitory Rate 18 04/19/2011 [facility] Heart Rate 58 04/19/2011 [facility] Temperature Oral (F) 98.5 F 04/19/2011 [facility] Respitory Rate 16 04/19/2011 [facility] Diastolic (mm Hg) 71 04/19/2011 [facility] Systolic (mm Hg) 119 04/19/2011 [facility] Temperature Oral (F) 98.5 F 04/19/2011 [facility] Heart Rate 78 04/19/2011 [facility] Respitory Rate 16 04/18/2011 [facility] Diastolic (mm Hg) 71 04/18/2011 [facility] Systolic (mm Hg) 115 04/18/2011 [facility] Temperature Oral (F) 98.6 F 04/18/2011 [facility] Heart Rate 60 04/18/2011 [facility] Weight 46.989 04/16/2011 [facility] Height 165.10 cm 04/16/2011 [facility] Encounters Location Location Encounter Encounter Reason Attending ADM DC Status Source Details Type Number For Provider Date Date Visit Not Sent Inpatient [id number] OLGA 04/16 04/19 Active ROCAEL /2011 [facility] Not [facility] Emergency [id number] SENTHIL 04/16 04/17 Active BHAVESH /2012 [facility] Not [facility] Emergency [id number] GILBERTO 05/31 05/31 Active JOHANA /2012 [facility] Not Sent Emergency [id number] KELLEN 10/19 10/20 Active WEATHERS /2012 [facility] OBS [id number] _MAPID: [place] 04/30 04/30 [facility] Observation [id number] MORA Mcclelland /2013 [facility] Patient [id number] [address] Inpatient [id number] Sed[place] 08/13 08/15 Nicola Mcclelland /2013 [facility] Emergency [id number] Paul 01/15 01/16 Nicola Quiñones /2013 [facility] EC Emergency [id number] Nadir 04/27 04/27 Grant Kellen Garber /2014 [facility] Emergency [id number] Mike 05/06 05/06 Nicola Caal /2014 [facility] Emergency [id number] Jonathan 01/03 01/03 Nicola Long /2015 [facility] Observation [id number] La 03/02 03/03 JAQUI Muir /2017 [facility] Emergency [id number] Alex 06/11 06/11 Nicola Berry /2018 [facility] Procedures Procedure Code Date Perfomer Comments Source [id number] [facility] section<sup>1</hylton p> Colonoscopy [id number] [facility] Diagnostic [id number] [facility] endoscopy Exploratory [id number] [facility] laparotomy Bone [id number] left femor [facility] operation<sup>1</ metal implanted sup> [id number] 2009 [facility] section<sup>2</hylton p> Colon operation [id number] [facility] Exploratory [id number] [facility] laparotomy
--- OUTSIDE RECORDS SUMMARY | 2018-06-26 20:34 | XMS REPORT | CCD ---
:1985 Author Organization [facility] Care Team Providers Name Role Phone Omi Echeverria Consulting Provider Allergies, Adverse Reactions, Alerts Substance Reaction Status NKDA Active Problem List Condition Effective Dates Status Gastritis Active Intussusception of the intestine Active Medications Medication Instructions Start Date End Date Status omeprazole Substitution Allowed 05/31/2012 Ordered RhoGam (MAR Charting) 300 microgram, Route: 05/04/2009 05/04/2009 Completed IM, ONCE, Start date: 05/04/09 8:47:00, Stop date: 05/04/09 8:47:00 nitrofurantoin 100 mg, 1 cap, PO, QID, 05/31/2012 06/07/2012 Ordered macrocrystals 100 mg oral 28 cap, Substitution capsule Allowed, CAP Zofran ODT 4 mg oral 4 mg, 1 tab, PO, BID, Dissolve tab under tongue, 10 tab, Substitution Allowed 05/31/2012 Ordered tablet, disintegrating Dissolve tab under tongue Omnipaque 240 50 ml, Route: PO, Drug 05/31/2012 05/31/2012 Discontinued Form: SOLN, Dosing Weight 48.636, kg, ONCE, Start date: 05/31/12 19:15:00, Stop date: 05/31/12 19:15:00 Zofran 4 mg, 2 mL, Route: IVP, 05/31/2012 05/31/2012 Completed Drug form: INJ, ONCE, Dosing Weight 48.636, kg, Priority: STAT, Start date: 05/31/12 19:15:00, Stop date: 05/31/12 19:15:00 morphine Sulfate 4 mg, 1 mL, Route: IVP, 05/31/2012 05/31/2012 Completed Drug form: INJ, ONCE, Dosing Weight 48.636, kg, Start date: 05/31/12 19:15:00, Stop date: 05/31/12 19:15:00 NS (Bolus) IV 1,000 mL 1,000 mL, Rate: 1,000 ml/hr, Infuse over: 1 hr, Route: IV, kg, Total Volume: 1,000, Priority: STAT, Start date: 05/31/12 19:15:00, Duration: 1 doses or times, Stop date: 05/31/12 22:14:00, Bolus Dose 201205/31/2012 Completed Bolus Dose Saline Flush 0.9% 5 mL, Route: IVP, Drug 05/31/2012 06/01/2012 Discontinued Form: INJ, Dosing Weight 48.636, kg, PRN, PRN Line Flush, Start date: 05/31/12 19:15:00, Duration: 24 hr, Stop date: 06/01/12 19:14:00 Immunizations Vaccine Date Status RhoGam (MAR Charting)1 05/04/2009 Auth (Verified) 1Result Comment: LEFT HIP Vital Signs Most recent to oldest [Reference Range]: 1 Height 165.1 cm (05/31/2012 18:03:00) Weight 48.636 kg (05/31/2012 18:03:00) Results URINALYSIS Most recent to oldest [Reference Range]: 1 UA Turbidity [Clear] Clear (05/31/2012 21:20:00) UA Color [Yellow] Yellow *NA* (05/31/2012 21:20:00) UA pH [5.0-8.0] 7.0 (05/31/2012 21:20:00) UA Spec Grav [<=1.030] 1.015 (05/31/2012 21:20:00) UA Glucose [Negative] Negative (05/31/2012 21:20:00) UA Blood [Negative] Trace *ABN* (05/31/2012 21:20:00) UA Ketones [Negative mg/dL] 15 mg/dL *ABN* (05/31/2012 21:20:00) UA Protein [Negative] Negative (05/31/2012 21:20:00) UA Urobilinogen [0.1-1.0 EU/dL] 0.2 EU/dL (05/31/2012 21:20:00) UA Bili [Negative] Negative *NA* (05/31/2012 21:20:00) UA Leuk Est [Negative] Negative (05/31/2012 21:20:00) UA Nitrite [Negative] Positive *ABN* (05/31/2012 21:20:00) UA WBC [None Seen /HPF] 3-5 /HPF (05/31/2012 21:20:00) UA RBC [0-2 /HPF] 0-2 /HPF (05/31/2012 21:20:00) UA Bacteria [None Seen /HPF] Many /HPF (05/31/2012 21:20:00) UA Sq Epi [Few /LPF] Occasional /LPF (05/31/2012 21:20:00) UA Mucus [None Seen /LPF] Few /LPF (05/31/2012 21:20:00) Micro? Performed (05/31/2012 21:20:00) CHEMISTRY Most recent to oldest [Reference Range]: 1 Sodium Lvl [135-145 mEq/L] 136 mEq/L (05/31/2012 19:30:00) Potassium Lvl [3.5-5.1 mEq/L] 3.5 mEq/L (05/31/2012:30:00) Chloride Lvl [95-109 mEq/L] 103 mEq/L (05/31/2012:30:00) CO2 [24-32 mEq/L] 25 mEq/L (05/31/2012:30:00) AGAP [10.0-20.0 mEq/L] 11.5 mEq/L (05/31/2012:30:00) Creatinine Lvl [0.5-1.4 mg/dL] 0.6 mg/dL (05/31/2012:30:00) eGFR 126 mL/min/1.73m2 1 *NA* (05/31/2012 19:30:00) BUN [7-22 mg/dL] 10 mg/dL (05/31/2012 19:30:00) B/C Ratio [6-25] 17 (05/31/2012 19:30:00) Glucose Lvl [70-99 mg/dL] 104 mg/dL 2 *HI* (05/31/2012 19:30:00) Total Protein [6.4-8.4 g/dL] 8.1 g/dL (05/31/2012:30:) Albumin Lvl [3.5-5.0 g/dL] 4.6 g/dL (05/31/2012:30:00) Globulin [2.0-4.0 g/dL] 3.5 g/dL (05/31/2012:) A/G Ratio [0.7-1.6] 1.3 (05/31/2012:) Calcium Lvl [8.5-10.5 mg/dL] 9.0 mg/dL (05/31/2012:30:) ALT [0-65 unit/L] 16 unit/L (05/31/2012:) AST [0-37 unit/L] 10 unit/L (05/31/2012:) Alk Phos [39-136 unit/L] 75 unit/L (05/31/2012:) Bili Total [0.2-1.3 mg/dL] 0.5 mg/dL (05/31/2012:30:00) Lipase Lvl [73-393 unit/L] 165 unit/L (05/31/2012:30:00) S Preg [Negative] Positive *NA* (05/31/2012:30:00) hCG Tot 27 mIU/mL 3 *NA* (05/31/2012:50:00) 1Result Comment: The eGFR is calculated using the CKD-EPI formula. In most young , healthy individualsthe eGFR will be >90 mL/min/1.73m2. The eGFR declines with age. An eGFR of 60-89 may be normal in some populations, particularly the elderly, for whom the CKD-EPI formula has not been extensively validated. Use of the eGFR is not recommended in the following populations: Individuals with unstable creatinine concentrations, including patients and those with serious co-morbid conditions. Patients with extremes in muscle mass or diet. The data above are obtained from the National Kidney Disease Education Program ( NKDEP) which additionally recommends that when the eGFR is used in patients with extremes of body mass index for purposesof drug dosing, the eGFR should be multiplied by the estimated BMI.2Interpretive Data: Adult reference range values reflect the clinical guidelines of the [place] [employer].3Interpretive Data: Reference Range: Male 0 - 5 mIU/mL Non- Female 0 - 5 mIU/mL Note: [...] 17 8,175 - 55,868 18 8,099 - 58,176HEMATOLOGY Most recent to oldest [Reference Range]: 1 WBC [3.7-10.4 K/CMM] 19.7 K/CMM *HI* (05/31/2012 19:30:00) RBC [4.20-5.40 M/CMM] 4.93 M/CMM (05/31/2012 19:30:00) Hgb [12.0-16.0 g/dL] 14.7 g/dL (05/31/2012:30:00) Hct [36.0-48.0 %] 43.3 % (05/31/2012 19:30:00) MCV [81.0-99.0 fL] 87.8 fL (05/31/2012 19:30:00) MCH [27.0-31.0 pg] 29.8 pg (05/31/2012:30:00) MCHC [32.0-36.0 g/dL] 33.9 g/dL (05/31/2012:30:00) RDW [11.5-14.5 %] 13.5 % (05/31/2012 19:30:00) Platelet [133-450 K/CMM] 350 K/CMM (05/31/2012 19:30:00) MPV [7.4-10.4 fL] 7.8 fL (05/31/2012 19:30:00) Segs [45.0-75.0 %] 84.0 % *HI* (05/31/2012 19:30:00) Bands [0.0-11.0 %] 2.0 % (05/31/2012 19:30:00) Lymphocytes [20.0-40.0 %] 10.0 % *LOW* (05/31/2012 19:30:00) Atypical Lymphs [<=0.0 %] 0.0 % (05/31/2012 19:30:00) Monocytes [2.0-12.0 %] 3.0 % (05/31/2012 19:30:00) Basophils [0.0-1.0 %] 1.0 % (05/31/2012 19:30:00) Segs-Bands # [1.5-8.1 K/CMM] 16.9 K/CMM *HI* (05/31/2012 19:30:00) Lymphocytes # [1.0-5.5 K/CMM] 2.0 K/CMM (05/31/2012 19:30:00) Monocytes # [0.0-0.8 K/CMM] 0.6 K/CMM (05/31/2012 19:30:00) Basophils # [0.0-0.2 K/CMM] 0.2 K/CMM (05/31/2012 19:30:00) Tot Cell Ct 100 *NA* (05/31/2012 19:30:00) RBC Morph Normal (05/31/2012 19:30:00) Plt Morph Normal (05/31/2012 19:30:00)
--- OUTSIDE RECORDS SUMMARY | 2018-06-26 20:34 | XMS REPORT | CCD ---
:1985 Author Organization [facility] Care Team Providers Name Role Phone José Miguel Hair Consulting Provider Allergies, Adverse Reactions, Alerts Substance Reaction Status NKDA Active Problem List Condition Effective Dates Status Intussusception of the intestine Active Medications Medication Instructions Start Date End Date Status Demerol HCl 12.5 mg, Route: IVP, 04/16/2011 04/16/2011 Completed ONCE, Start date: 04/16/11 19:01:00, Stop date: 04/16/11 19:01:00 Demerol HCl 12.5 mg, Route: IVP, 04/16/2011 04/16/2011 Completed ONCE, Start date: 04/16/11 19:00:00, Stop date: 04/16/11 19:00:00 cefazolin 1 gm, Route: IVPB, ONCE, 04/16/2011 04/16/2011 Completed Priority: STAT, Start date: 04/16/11 15:17:00, Stop date: 04/16/11 15:17:00 LR IV 1,000 mL 1,000 mL, Rate: 40 04/16/2011 04/16/2011 Discontinued ml/hr, Infuse over: 25 hr, Route: IV, Total Volume: 1,000, Start date: 04/16/11 15:53:00, Duration: 1 doses or times, Stop date: 04/17/11 16:52:00 morphine Sulfate 4 mg, 1 mL, Route: IVP, 04/16/2011 04/16/2011 Completed Drug form: INJ, ONCE, Start date: 04/16/11 19:25:00, Stop date: 04/16/11 19:25:00 Mylicon 80 mg, 1 tab, Route: 04/17/2011 04/19/2011 Discontinued CHEW, Drug form: CHEWTAB, QID, PRN Gas, Start date: 04/17/11 12:00:00, Duration: 30 day, Stop date: 05/17/11 11:59:00 ondansetron 4 mg, 2 mL, Route: IVP, 04/16/2011 04/16/2011 Completed Drug form: INJ, ONCE, Priority: STAT, Start date: 04/16/11 15:03:00, Stop date: 04/16/11 15:03:00 Demerol HCl 12.5 mg, Route: IVP, 04/16/2011 04/16/2011 Completed ONCE, Start date: 04/16/11 18:12:00, Stop date: 04/16/11 18:12:00 acetaminophen 1,000 mg, Route: IVP, 04/16/2011 04/16/2011 Completed ONCE, Start date: 04/16/11 18:12:00, Stop date: 04/16/11 18:12:00 morphine Sulfate 4 mg, 1 mL, Route: IVP, 04/16/2011 04/16/2011 Completed Drug form: INJ, ONCE, Priority: STAT, Start date: 04/16/11 15:03:00, Stop date: 04/16/11 15:03:00 Sodium Chloride 0.9% IV 1,000 mL, Rate: 100 04/16/2011 04/16/2011 Discontinued 1,000 mL ml/hr, Infuse over: 10 hr, Route: IV, Total Volume: 1,000, Start date: 04/16/11 15:03:00, Duration: 30 day, Stop date: 05/16/11 15:02:00 Sodium Chloride 0.9% 1,000 mL, Rate: 1,000 04/16/2011 04/16/2011 Discontinued (Bolus) IV 1,000 mL ml/hr, Infuse over: 1 hr, Route: IV, Total Volume: 1,000, Bolus Dose, Priority: STAT, Start date: 04/16/11 15:02:00, Duration: 1 doses or times, Stop date: 04/16/11 16:01:00 RhoGam (MAR Charting) 300 microgram, Route: 05/04/2009 05/04/2009 Completed IM, ONCE, Start date: 05/04/09 8:47:00, Stop date: 05/04/09 8:47:00 Demerol HCl 12.5 mg, Route: IVP, 04/16/2011 04/16/2011 Completed ONCE, Start date: 04/16/11 18:11:00, Stop date: 04/16/11 18:11:00 ondansetron 4 mg, 2 mL, Route: IVP, 04/16/2011 04/16/2011 Completed Drug form: INJ, ONCE, Priority: STAT, Start date: 04/16/11 11:01:00, Stop date: 04/16/11 11:01:00 morphine Sulfate 4 mg, 1 mL, Route: IVP, 04/16/2011 04/16/2011 Completed Drug form: INJ, ONCE, Priority: STAT, Start date: 04/16/11 11:01:00, Stop date: 04/16/11 11:01:00 Omnipaque 240 50 ml, Route: PO, Drug 04/16/2011 04/16/2011 Completed Form: SOLN, ONCE, Start date: 04/16/11 11:01:00, Stop date: 04/16/11 11:01:00 Sodium Chloride 0.9% 1,000 mL, Rate: 1,000 04/16/2011 04/16/2011 Completed (Bolus) IV 1,000 mL ml/hr, Infuse over: 1 hr, Route: IV, Total Volume: 1,000, Bolus Dose, Priority: STAT, Start date: 04/16/11 11:01:00, Duration: 1 doses or times, Stop date: 04/16/11 12:00:00 Sodium Chloride 0.9% 1,000 mL, Rate: 1,000 04/16/2011 04/16/2011 Completed (Bolus) IV 1,000 mL ml/hr, Infuse over: 1 hr, Route: IV, Total Volume: 1,000, Bolus Dose, Priority: STAT, Start date: 04/16/11 11:01:00, Duration: 1 doses or times, Stop date: 04/16/11 12:00:00 cefazolin 1 gm, Route: IVPB, ONCE, 04/16/2011 04/16/2011 Completed Priority: STAT, Start date: 04/16/11 16:47:00, Stop date: 04/16/11 16:47:00 morphine Sulfate 4 mg, Route: IVP, ONCE, 04/16/2011 04/16/2011 Completed Start date: 04/16/11 19:09:00, Stop date: 04/16/11 19:09:00 BD Normal Saline Flush 10 mL, Route: IV, Drug 04/16/2011 04/19/2011 Discontinued Form: INJ, PRN, PRN Line Flush, Start date: 04/16/11 15:42:00, Duration: 30 day, Stop date: 05/16/11 16:41:00 BD Normal Saline Flush 30 mL, Route: IV, Drug 04/16/2011 04/19/2011 Discontinued Form: INJ, PRN, PRN Line Flush, Start date: 04/16/11 15:42:00, Duration: 30 day, Stop date: 05/16/11 16:41:00 Flagyl 500 mg, 100 mL, Route: 04/16/2011 04/16/2011 Completed IVPB, Drug form: INJ, ONCE, Start date: 04/16/11 16:47:00, Stop date: 04/16/11 16:47:00 Lovenox 40 mg, 0.4 mL, Route: 04/17/2011 04/19/2011 Discontinued SUB-Q, Drug form: INJ, Daily, Start date: 04/17/11 9:00:00, Duration: 30 day, Stop date: 05/16/11 9:00:00 morphine Sulfate 4 mg, Route: IVP, ONCE, 04/16/2011 04/16/2011 Completed Start date: 04/16/11 19:20:00, Stop date: 04/16/11 19:20:00 cefazolin 1 gm, Route: IVPB, ONCE, 04/16/2011 04/16/2011 Completed Start date: 04/16/11 15:42:00, Stop date: 04/16/11 15:42:00 Zofran 4 mg, 2 mL, Route: IVP, 04/16/2011 04/19/2011 Discontinued Drug form: INJ, Q4H, PRN Nausea & Vomiting, Start date: 04/16/11 15:41:00, Duration: 30 day, Stop date: 05/16/11 15:40:00 morphine Sulfate 2 mg, Route: IVP, ONCE, 04/16/2011 04/16/2011 Completed Start date: 04/16/11 19:35:00, Stop date: 04/16/11 19:35:00 morphine Sulfate 2 mg, Route: IVP, ONCE, 04/16/2011 04/16/2011 Completed Start date: 04/16/11 19:04:00, Stop date: 04/16/11 19:04:00 Phenergan 12.5 mg, 0.5 mL, Route: 04/16/2011 04/19/2011 Discontinued IM, Drug form: INJ, Q4H, PRN Nausea & Vomiting, Start date: 04/16/11 19:13:00, Duration: 30 day, Stop date: 05/16/11 19:12:00 morphine Sulfate 4 mg, 1 mL, Route: IVP, 04/16/2011 04/19/2011 Discontinued Drug form: INJ, Q4H, PRN Pain, Start date: 04/16/11 15:41:00, Duration: 30 day, Stop date: 05/16/11 15:40:00 NS 1,000 mL 1,000 mL, Rate: 100 04/16/2011 04/16/2011 Discontinued ml/hr, Infuse over: 10 hr, Route: IV, Total Volume: 1,000, Start date: 04/16/11 15:41:00, Duration: 30 day, Stop date: 05/16/11 15:40:00 morphine Sulfate 2 mg, 1 mL, Route: IV, 04/16/2011 04/19/2011 Discontinued Drug form: INJ, Q4H, PRN Pain, Start date: 04/16/11 19:12:00, Duration: 30 day, Stop date: 05/16/11 19:11:00 1/2NS 1,000 mL 1,000 mL, Rate: 50 04/16/2011 04/19/2011 Discontinued ml/hr, Infuse over: 20 hr, Route: IV, Total Volume: 1,000, Start date: 04/16/11 19:12:00, Duration: 30 day, Stop date: 05/16/11 19:11:00 morphine Sulfate 4 mg, Route: IVP, ONCE, 04/16/2011 04/16/2011 Completed Start date: 04/16/11 19:11:00, Stop date: 04/16/11 19:11:00 Immunizations Vaccine Date Status RhoGam (MAR Charting)1 05/04/2009 Auth (Verified) 1Result Comment: LEFT HIP Vital Signs Most recent to oldest 1 2 3 [Reference Range]: Height 165.10 cm (04/16/2011 10:33:00) Current Weight 48.636 kg (04/17/2011 06:57:00) Temperature Oral 98.5 DegF 98.5 DegF 98.6 DegF [96.4-99.1 DegF] (04/19/2011 08:00:00) (04/18/2011 19:30:00) (04/18/2011 08: 06:00) Systolic Blood Pressure 113 mmHg 119 mmHg 115 mmHg [90-140 mmHg] (04/19/2011 08:00:00) (04/18/2011 19:30:00) (04/18/2011 08:06: 00) Diastolic Blood Pressure 65 mmHg 71 mmHg 71 mmHg [60-90 mmHg] (04/19/2011 08:00:00) (04/18/2011 19:30:00) (04/18/2011 08:06: 00) Respiratory Rate [14-20 18 BRMIN 16 BRMIN 16 BRMIN BRMIN] (04/19/2011 08:00:00) (04/18/2011 19:30:00) (04/18/2011 08:06:00) Peripheral Pulse Rate 58 bpm 78 bpm 60 bpm [60-100 bpm] *LOW* (04/18/2011 19:30:00) (04/18/2011 08:06:00) (04/19/2011 08:00:00) Weight 46.989 kg (04/16/2011 10:33:00) Results URINALYSIS Most recent to oldest [Reference Range]: 1 2 UA Turbidity [Clear] Clear (04/16/2011 11:35:00) UA Color [Yellow] Yellow *NA* (04/16/2011 11:35:00) UA pH [5.0-8.0] 6.5 (04/16/2011 11:35:00) UA Spec Grav [<=1.030] 1.020 (04/16/2011 11:35:00) UA Glucose [Negative] Negative (04/16/2011 11:35:00) UA Blood [Negative] Negative (04/16/2011 11:35:00) UA Ketones [Negative mg/dL] 40 mg/dL *ABN* (04/16/2011 11:35:00) UA Protein [Negative] Trace *ABN* (04/16/2011 11:35:00) UA Urobilinogen [0.1-1.0 EU/dL] 0.2 EU/dL (04/16/2011 11:35:00) UA Bili [Negative] Small *ABN* (04/16/2011 11:35:00) UA Leuk Est [Negative] Negative (04/16/2011 11:35:00) UA Nitrite [Negative] Negative (04/16/2011 11:35:00) UA WBC [None Seen] None Seen (04/16/2011 11:35:00) UA RBC [0-2] None Seen (04/16/2011 11:35:00) UA Bacteria [None Seen /HPF] Occasional /HPF (04/16/2011 11:35:00) UA Sq Epi [Few /LPF] Few /LPF (04/16/2011 11:35:00) UA Mucus [None Seen /LPF] Few /LPF (04/16/2011 11:35:00) Micro? Performed (04/16/2011 11:35:00) CHEMISTRY Most recent to oldest [Reference 1 2 Range]: Sodium Lvl [135-145 mEq/L] 141 mEq/L 139 mEq/L (04/19/2011 04:30:00) (04/16/2011 11:35:00) Potassium Lvl [3.5-5.1 mEq/L] 3.6 mEq/L 3.6 mEq/L (04/19/2011 04:30:00) (04/16/2011 11:35:00) Chloride Lvl [95-109 mEq/L] 104 mEq/L 106 mEq/L (04/19/2011 04:30:00) (04/16/2011 11:35:00) CO2 [24-32 mEq/L] 30 mEq/L 21 mEq/L (04/19/2011 04:30:00) *LOW* (04/16/2011 11:35:00) AGAP [10.0-20.0 mEq/L] 10.6 mEq/L 15.6 mEq/L (04/19/2011 04:30:00) (04/16/2011 11:35:00) Creatinine Lvl [0.5-1.4 mg/dL] 0.7 mg/dL 0.6 mg/dL (04/19/2011 04:30:00) (04/16/2011 11:35:00) BUN [7-22 mg/dL] 7 mg/dL 9 mg/dL (04/19/2011 04:30:00) (04/16/2011 11:35:00) B/C Ratio [6-25] 10 15 (04/19/2011 04:30:00) (04/16/2011 11:35:00) Glucose Lvl 80 mg/dL 1 90 mg/dL 2 *NA* *NA* (04/19/2011 04:30:00) (04/16/2011 11:35:00) Total Protein [6.4-8.4 g/dL] 6.0 g/dL 7.6 g/dL *LOW* (04/16/2011:35:00) (04/19/2011 04:30:00) Albumin Lvl [3.5-5.0 g/dL] 3.6 g/dL 4.5 g/dL (04/19/2011 04:30:00) (04/16/2011 11:35:00) Globulin [2.0-4.0 g/dL] 2.4 g/dL 3.1 g/dL (04/19/2011 04:30:00) (04/16/2011 11:35:00) A/G Ratio [0.7-1.6] 1.5 1.5 (04/19/2011 04:30:00) (04/16/2011 11:35:00) Calcium Lvl [8.5-10.5 mg/dL] 8.1 mg/dL 9.2 mg/dL *LOW* (04/16/2011 11:35:00) (04/19/2011 04:30:00) ALT [0-65 U/L] 16 U/L 18 U/L (04/19/2011 04:30:00) (04/16/2011 11:35:00) AST [0-37 U/L] 10 U/L 11 U/L (04/19/2011 04:30:00) (04/16/2011 11:35:00) Alk Phos [39-136 U/L] 45 U/L 61 U/L (04/19/2011 04:30:00) (04/16/2011 11:35:00) Bili Total [0.2-1.3 mg/dL] 0.3 mg/dL 0.5 mg/dL (04/19/2011 04:30:00) (04/16/2011 11:35:00) Lipase Lvl [73-393 U/L] 160 U/L (04/16/2011 11:35:00) S Preg [Negative] Negative *NA* (04/16/2011 11:35:00) 1Interpretive Data: Reference Ranges : 0 - 7 days : 41 - 90 mg/dL7 days - 150 yrs : 70 - 99 mg/dL (fasting), based on the clinical recommendations of the [place] [employer].2Interpretive Data: Reference Ranges : 0 - 7 days : 41 - 90 mg/dL7 days - 150 yrs : 70 - 99 mg/dL (fasting), based on the clinical recommendations of the [place] [employer].HEMATOLOGY Most recent to oldest [Reference 1 2 Range]: WBC [3.7-10.4 K/CMM] 7.0 K/CMM 8.8 K/CMM (04/19/2011 04:30:00) (04/16/2011 11:35:00) RBC [4.20-5.40 M/CMM] 3.81 M/CMM 4.45 M/CMM *LOW* (04/16/2011 11:35:00) (04/19/2011 04:30:00) Hgb [12.0-16.0 g/dL] 11.4 g/dL 13.3 g/dL *LOW* (04/16/2011 11:35:00) (04/19/2011 04:30:00) Hct [36.0-48.0 %] 34.0 % 39.2 % *LOW* (04/16/2011 11:35:00) (04/19/2011 04:30:00) MCV [81.0-99.0 fL] 89.2 fL 88.2 fL (04/19/2011 04:30:00) (04/16/2011 11:35:00) MCH [27.0-31.0 pg] 30.0 pg 29.8 pg (04/19/2011 04:30:00) (04/16/2011 11:35:00) MCHC [32.0-36.0 g/dL] 33.7 g/dL 33.8 g/dL (04/19/2011 04:30:00) (04/16/2011 11:35:00) RDW [11.5-14.5 %] 13.0 % 13.4 % (04/19/2011 04:30:00) (04/16/2011 11:35:00) Platelet [133-450 K/CMM] 282 K/CMM 342 K/CMM (04/19/2011 04:30:00) (04/16/2011 11:35:00) MPV [7.4-10.4 fL] 8.0 fL 8.0 fL (04/19/2011 04:30:00) (04/16/2011 11:35:00) Segs [45.0-75.0 %] 39.1 % 64.2 % *LOW* (04/16/2011 11:35:00) (04/19/2011 04:30:00) Lymphocytes [20.0-40.0 %] 47.4 % 27.9 % *HI* (04/16/2011 11:35:00) (04/19/2011 04:30:00) Monocytes [2.0-12.0 %] 10.0 % 6.6 % (04/19/2011 04:30:00) (04/16/2011 11:35:00) Eosinophils [0.0-4.0 %] 2.8 % 0.5 % (04/19/2011 04:30:00) (04/16/2011 11:35:00) Basophils [0.0-1.0 %] 0.7 % 0.8 % (04/19/2011 04:30:00) (04/16/2011 11:35:00) Segs-Bands # [1.5-8.1 K/CMM] 2.7 K/CMM 5.6 K/CMM (04/19/2011 04:30:00) (04/16/2011 11:35:00) Lymphocytes # [1.0-5.5 K/CMM] 3.3 K/CMM 2.4 K/CMM (04/19/2011 04:30:00) (04/16/2011 11:35:00) Monocytes # [0.0-0.8 K/CMM] 0.7 K/CMM 0.6 K/CMM (04/19/2011 04:30:00) (04/16/2011 11:35:00) Eosinophils # [0.0-0.5 K/CMM] 0.2 K/CMM 0.0 K/CMM (04/19/2011 04:30:00) (04/16/2011 11:35:00) Basophils # [0.0-0.2 K/CMM] 0.0 K/CMM 0.1 K/CMM (04/19/2011 04:30:00) (04/16/2011 11:35:00)
--- OUTSIDE RECORDS SUMMARY | 2018-06-26 20:34 | XMS REPORT | Summary of Care ---
:1985 Author Organization [facility] Address [address] [place], [place] [address]- Encounter HQ Falgunintr_lorraine(FIN) [id number] Date(s): 06/11/18 - 06/11/18 [facility] [address] [place] [address]- [phone] Encounter Diagnosis DUB (dysfunctional uterine bleeding) (Discharge Diagnosis) - 06/11/18 Discharge Disposition: Home or Self Care Attending Physician: Alex Berry DO Vital Signs Most recent to oldest 1 2 3 [Reference Range]: Height 165.1 cm (06/11/18 10:06 AM) Temperature Oral [96.4-99.1 98.8 DegF DegF] (06/11/18 10:06 AM) Blood Pressure [90-140/60-90 140/90 mmHg 146/92 mmHg 146/89 mmHg mmHg] (06/11/18 1:18 PM) *HI* *HI* (06/11/18 12:18 PM) (06/11/18 11:18 AM) Respiratory Rate [14-20 20 BRMIN 20 BRMIN 20 BRMIN BRMIN] (06/11/18 1:18 PM) (06/11/18 12:18 PM) (06/11/18 11:18 AM) Peripheral Pulse Rate 96 bpm 90 bpm 92 bpm [60-100 bpm] (06/11/18 1:18 PM) (06/11/18 12:18 PM) (06/11/18 11:18 AM) Weight 46.364 kg (06/11/18 10:06 AM) Body Mass Index 17.01 m2 (06/11/18 10:06 AM) Problem List Condition Effective Dates Status Health Status Informant Abnormal cytology findings1 10/05/13 Active Anxiety(Confirmed) Active 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 Depressive disorder3 01/14/13 Active Dysplasia of cervix4 03/01/14 Active Gastritis(Confirmed) Active Insomnia(Confirmed) Active 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 Allergies, Adverse Reactions, Alerts Substance Reaction Severity Status NKDA Active Medications acetaminophen 650 mg, 2 tab, Route: PO, Drug form: TAB, ONCE, Dosing Weight 46.364, kg, Priority: STAT, Start date: 06/11/18 10:48:00 CDT, Stop date: 06/11/18 10:48:00 CDT Notes: Do not exceed 4 gm/day. (Same as: Tylenol) Start Date: 06/11/18 Stop Date: 06/11/18 Status: CompletedSaline Flush 0.9% 10 mL, Route: IVP, Drug Form: INJ, Dosing Weight 46.364, kg, PRN, PRN Line Flush , Start date: 06/11/18 10:48:00 CDT, Duration: 30 day, Stop date: 07/11/18 10:47 :00 CDT Notes: (Same as: BD Posiflush) Start Date: 06/11/18 Stop Date: 06/11/18 Status: DiscontinuedSodium Chloride 0.9% (Bolus) IV 500 mL, 500 ml/hr, Infuse Over: 1 hr, Route: IV, 500, Drug form: INJ, ONCE, Priority: STAT, Dosing Weight 46.364 kg, Start date: 06/11/18 10:48:00 CDT, Stop date: 06/11/18 10:48:00 CDT Start Date: 06/11/18 Stop Date: 06/11/18 Status: Completed Results ELECTROLYTES Most recent to oldest [Reference Range]: 1 Sodium Lvl [135-145 mEq/L] 139 mEq/L (06/11/18 12:06 PM) Potassium Lvl [3.5-5.1 mEq/L] 3.6 mEq/L (06/11/18 12:06 PM) Chloride Lvl [95-109 mEq/L] 102 mEq/L (06/11/18 12:06 PM) CO2 [24-32 mEq/L] 29 mEq/L (06/11/18 12:06 PM) AGAP [10.0-20.0 mEq/L] 11.6 mEq/L (06/11/18 12:06 PM) CHEM PANEL Most recent to oldest [Reference Range]: 1 Creatinine Lvl [0.50-1.40 mg/dL] 0.65 mg/dL (06/11/18 12:06 PM) eGFR 118 mL/min/1.73m2 1 *NA* (06/11/18 12:06 PM) BUN [7-22 mg/dL] 11 mg/dL (06/11/18 12:06 PM) Glucose Lvl [70-99 mg/dL] 81 mg/dL (06/11/18 12:06 PM) Calcium Lvl [8.5-10.5 mg/dL] 8.8 mg/dL (06/11/18 12:06 PM) 1Result Comment: The eGFR is calculated using the CKD-EPI formula. In most young , healthy individualsthe eGFR will be >90 mL/min/1.73m2. The eGFR declines with age. An eGFR of 60-89 may be normal insome populations, particularly the elderly, for whom the [...] eGFR should be multiplied by the estimated BMI.ENDOCRINOLOGY Most recent to oldest [Reference Range]: 1 S Preg [Negative] Negative *NA* (06/11/18 12:06 PM) URINE AND STOOL Most recent to oldest [Reference Range]: 1 UA Turbidity [Clear] Slight *ABN* (06/11/18 12:06 PM) UA Color [Yellow] Yellow (06/11/18 12:06 PM) UA pH [5.0-8.0] 7.0 (06/11/18 12:06 PM) UA Spec Grav [<=1.030] 1.021 (06/11/18 12:06 PM) UA Glucose [Negative] Negative *NA* (06/11/18 12:06 PM) UA Blood [Negative] Moderate *ABN* (06/11/18 12:06 PM) UA Ketones [Negative] Negative *NA* (06/11/18 12:06 PM) UA Protein [Negative] Negative (06/11/18 12:06 PM) UA Urobilinogen [0.1-1.0 mg/dL] <=1.0 mg/dL *NA* (06/11/18 12:06 PM) UA Bili [Negative] Negative *NA* (06/11/18 12:06 PM) UA Leuk Est [Negative] Negative (06/11/18 12:06 PM) UA Nitrite [Negative] Negative (06/11/18 12:06 PM) UA WBC [0-5 /HPF] 2 /HPF (06/11/18 12:06 PM) UA RBC [0-2 /HPF] 3 /HPF *HI* (06/11/18 12:06 PM) UA Sq Epi [Few /LPF] Occasional /LPF *NA* (06/11/18 12:06 PM) UA Mucus [None Seen /LPF] Moderate /LPF *ABN* (06/11/18 12:06 PM) UA Trans Epi [<=0 /LPF] 1 /LPF *HI* (06/11/18 12:06 PM) HEMATOLOGY Most recent to oldest [Reference Range]: 1 WBC [3.7-10.4 K/CMM] 12.2 K/CMM *HI* (06/11/18 12:06 PM) RBC [4.20-5.40 M/CMM] 4.41 M/CMM (06/11/18 12:06 PM) Hgb [12.0-16.0 g/dL] 12.0 g/dL (06/11/18 12:06 PM) Hct [36.0-48.0 %] 36.7 % (06/11/18 12:06 PM) MCV [80.0-98.0 fL] 83.3 fL (06/11/18 12:06 PM) MCH [27.0-31.0 pg] 27.4 pg (06/11/18:06 PM) MCHC [32.0-36.0 g/dL] 32.8 g/dL (06/11/18 12:06 PM) RDW [11.5-14.5 %] 14.6 % *HI* (06/11/18:06 PM) MPV [7.4-10.4 fL] 7.8 fL (06/11/18 12:06 PM) Platelet [133-450 K/CMM] 325 K/CMM (06/11/18:06 PM) Segs [45.0-75.0 %] 59.0 % (06/11/18 12:06 PM) Lymphocytes [20.0-40.0 %] 29.7 % (06/11/18 12:06 PM) Monocytes [2.0-12.0 %] 8.7 % (06/11/18 12:06 PM) Eosinophils [0.0-4.0 %] 1.9 % (06/11/18 12:06 PM) Basophils [0.0-1.0 %] 0.7 % (06/11/18 12:06 PM) Neutrophils # [1.5-8.1 K/CMM] 7.2 K/CMM (06/11/18 12:06 PM) Lymphocytes # [1.0-5.5 K/CMM] 3.6 K/CMM (06/11/18 12:06 PM) Monocytes # [0.0-0.8 K/CMM] 1.1 K/CMM *HI* (06/11/18 12:06 PM) Eosinophils # [0.0-0.5 K/CMM] 0.2 K/CMM (06/11/18 12:06 PM) Basophils # [0.0-0.2 K/CMM] 0.1 K/CMM (06/11/18 12:06 PM) Immunizations Given and Recorded Vaccine Date Status Refusal Reason RhoGam (APR Charting) 08/14/13 Given RhoGam (APR Charting)1 05/04/09 Given 1Result Comment: LEFT HIP Procedures Procedure Date Related Diagnosis Body Site Status Bone operation1 Completed section2 Completed Colon operation Completed Colonoscopy Completed Diagnostic endoscopy Completed Exploratory laparotomy Completed 1left femor metal [id number] Social History Social History Type Response Substance Abuse 1 Sexual Sexually active: Yes. History of sexual abuse: No. Sex Mutually Satisfying: No. Exercise 2 Employment/School 3 Alcohol 4 Smoking Status Current every day smoker; Type: Cigarettes; Exposure to Tobacco Smoke None; Cigarette Smoking Last 365 Days Yes; Reg Smoking Cessation Counseling No5 entered on: 06/11/18 [id number] ppd Assessment and Plan No data available for this section
--- OUTSIDE RECORDS SUMMARY | 2018-06-26 20:34 | XMS REPORT | CCD ---
:1985 Author Organization [facility] [place] [facility] Team Providers Name Role Phone Prince Wray Consulting Provider Allergies, Adverse Reactions, Alerts Substance Reaction Status NKDA Active Problem List Condition Effective Dates Status Intussusception of the intestine Active Medications Medication Instructions Start Date End Date Status RhoGam (APR Charting) 300 microgram, Route: IM, ONCE, 05/04/2009 05/04/2009 Completed Start date: 05/04/09 8:47:00, Stop date: 05/04/09 8:47:00 Immunizations Vaccine Date Status RhoGam (APR Charting)1 05/04/2009 Auth (Verified) 1Result Comment: LEFT HIP
--- OUTSIDE RECORDS SUMMARY | 2018-06-26 20:34 | XMS REPORT | Summary of Care ---
:1985 Author Organization [facility] Address [address], [place] [address]- Encounter HQ Bernadette(FIN) [id number] Date(s): 03/02/17 - 03/02/17 [facility] [address] [place] [address]- [phone] Discharge Disposition: Home or Self Care Attending Physician: La Muir MD Vital Signs Most recent to oldest [Reference 1 2 3 Range]: Height 165.1 cm (03/02/17 10:29 AM) Temperature Oral [96.4-99.1 98.5 DegF 98.8 DegF 98.2 DegF DegF] (03/02/17 9:55 PM) (03/02/17 7:25 PM) (03/02/17 10:29 AM) Blood Pressure [90-140/60-90 107/56 mmHg 102/57 mmHg 101/59 mmHg mmHg] (03/02/17 9:55 PM) (03/02/17 8:55 PM) (03/02/17 7:55 PM) Respiratory Rate [14-20 BRMIN] 18 BRMIN 18 BRMIN 16 BRMIN (03/02/17 9:55 PM) (03/02/17 8:55 PM) (03/02/17 7:55 PM) Peripheral Pulse Rate [60-100 74 bpm 72 bpm 71 bpm bpm] (03/02/17 9:55 PM) (03/02/17 8:55 PM) (03/02/17 7:55 PM) Weight 45.727 kg (03/02/17 10:29 AM) Body Mass Index 16.78 m2 (03/02/17 10:29 AM) Problem List Condition Effective Dates Status Health Status Informant Abnormal cytology findings1 10/05/13 Active Anxiety(Confirmed) Active Bipolar(Confirmed) Active 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 (Same as: Tylenol with Codeine # 3) Start Date: 03/02/17 Stop Date: 03/02/17 Status: Discontinuedacetaminophen-codeine #3 1 tab, Route: PO, Drug Form: TAB, Dosing Weight 45.727, kg, Q4H, PRN Pain Score 1-3, Start date: 03/02/17 18:34:00 STAGE BUILDER, Duration: 30 day, Stop date: 04/01/17 18 :33:00 STAGE BUILDER Notes: Do not exceed 4gm/day of acetaminophen. (Same as: Tylenol with Codeine # 3) Start Date: 03/02/17 Stop Date: 03/02/17 Status: DiscontinuedANES acetaminophen 1,000 mg, 2 tab, Route: PO, Drug form: TAB, ONCE, Dosing Weight 45.727, kg, PRN Pain Score 1-3, Start date: 03/02/17 17:13:00 STAGE BUILDER Notes: Max acetaminophen 4000 mg/day (4 gm/day). (Same as: Tylenol Extra Strength) Start Date: 03/02/17 Stop Date: 03/02/17 Status: DiscontinuedANES albuterol 0.083% inhalation solution 2.49 mg, 3 mL, Route: NEB, Drug form: SOLN, Q20Min, Dosing Weight 45.727, kg, PRN Wheezing, Priority: STAT, Start date: 03/02/17 17:13:00 STAGE BUILDER, Duration: 12 hr , Stop date: 03/03/17 5:12:00 STAGE BUILDER Notes: SEE RT DOCUMENTATION (Same as: Proventil) Start Date: 03/02/17 Stop Date: 03/02/17 Status: DiscontinuedANES flumazenil 0.2 mg, 2 mL, Route: IVP, Drug form: INJ, PRN, Dosing Weight 45.727, kg, PRN Benzodiazepine Reversal, Initial dose, Start date: 03/02/17 17:13:00 STAGE BUILDER, Stop date: 04/02/17 5:00:00 STAGE BUILDER Notes: (Same as: Romazicon) Start Date: 03/02/17 Stop Date: 03/02/17 Status: DiscontinuedANES hydrALAZINE 10 mg, 0.5 mL, Route: IVP, Drug form: INJ, Q20Min, Dosing Weight 45.727, kg, PRN Elevated BP, Start date: 03/02/17 17:13:00 STAGE BUILDER, Duration: 2 doses or times, Stop date: 03/03/17 5:00:00 STAGE BUILDER Notes: (Same as: Apresoline)Push over 5 minutes Start Date: 03/02/17 Stop Date: 03/02/17 Status: DiscontinuedANES HYDROmorphone 0.5 mg, 0.5 mL, Route: IVP, Drug form: INJ, Q5Min, Dosing Weight 45.727, kg, PRN Pain Score 7-10, Start date: 03/02/17 17:13:00 STAGE BUILDER, Duration: 4 doses or times, Stop date: 03/03/17 5:00:00 STAGE BUILDER Notes: Same as: Dilaudid Start Date: 03/02/17 Stop Date: 03/02/17 Status: DiscontinuedANES ketOROLAC 30 mg, 1 mL, Route: IVP, Drug form: INJ, ONCE, Dosing Weight 45.727, kg, Start date: 03/02/17 17:13:00 STAGE BUILDER, Stop date: 03/02/17 17:13:00 STAGE BUILDER Notes: (Same as:Toradol) IV bolus must be given >15 seconds. Give IM administration slowly and deeply into the muscle.Not for use > 4 days MEDICATION WASTE Product Size: 30 mgProduct Wasted: ___ mg Start Date: 03/02/17 Stop Date: 03/02/17 Status: OrderedANES labetalol 10 mg, 2 mL, Route: IVP, Drug form: INJ, Q5Min, Dosing Weight 45.727, kg, PRN Elevated BP, Start date: 03/02/17 17:13:00 STAGE BUILDER, Duration: 5 doses or times, Stop date: 03/03/17 5:00:00 STAGE BUILDER Notes: (Same as: Normodyne, Trandate)Push over 2 minutes Give bolus over 2-3 minutes. Start Date: 03/02/17 Stop Date: 03/02/17 Status: DiscontinuedANES meperidine 12.5 mg, 0.5 mL, Route: IVP, Drug form: INJ, Q30Min, Dosing Weight 45.727, kg, PRN Other -See Comment, For shivering, Start date: 03/02/17 17:13:00 STAGE BUILDER, Duration: 2 doses or times, Stop date: 03/03/17 5:00:00 STAGE BUILDER Notes: (Same as: Demerol) "Use Precaution in Elderly, Seizure disorders, and Renal impairment" Start Date: 03/02/17 Stop Date: 03/02/17 Status: DiscontinuedANES morphine Sulfate 2 mg, 1 mL, Route: IVP, Drug form: INJ, Q5Min, Dosing Weight 45.727, kg, PRN Pain Score 4-6, Start date: 03/02/17 17:13:00 STAGE BUILDER, Duration: 5 doses or times, Stop date: 03/03/17 5:00:00 STAGE BUILDER Notes: (Same as:MORPhine Sulfate) Start Date: 03/02/17 Stop Date: 03/02/17 Status: DiscontinuedANES naloxone 0.4 mg, 1 mL, Route: IVP, Drug form: INJ, Q2MIN, Dosing Weight 45.727, kg, PRN Narcotic Reversal, Start date: 03/02/17 17:13:00 STAGE BUILDER, Duration: 8 doses or times , Stop date: 03/03/17 5:00:00 STAGE BUILDER Notes: Same as Narcan Start Date: 03/02/17 Stop Date: 03/02/17 Status: DiscontinuedANES ondansetron 4 mg, 2 mL, Route: IVP, Drug form: INJ, ONCE, Dosing Weight 45.727, kg, PRN Nausea & Vomiting, Start date: 03/02/17 17:13:00 STAGE BUILDER Notes: (Same as: Zofran) MEDICATION WASTE Product Size: 4 mgProduct Wasted: ___ mg Start Date: 03/02/17 Stop Date: 03/02/17 Status: DiscontinuedANES oxyCODONE 5 mg, 1 tab, Route: PO, Drug form: TAB, Q4H, Dosing Weight 45.727, kg, PRN Pain Score 4-6, Start date: 03/02/17 17:13:00 STAGE BUILDER, Duration: 12 hr, Stop date: 5:12:00 STAGE BUILDER Notes: (Same as: Roxicodone) Start Date: 03/02/17 Stop Date: 03/02/17 Status: DiscontinuedANES promethazine 6.25 mg, 50 mL, Route: IVPB, Drug form: SOLN, ONCE, Dosing Weight 45.727, kg, PRN Nausea & Vomiting, Start date: 03/02/17 17:13:00 STAGE BUILDER Start Date: 03/02/17 Stop Date: 03/02/17 Status: DiscontinuedceFAZolin 2 gm, Route: IVPB, ONCE, Dosing Weight 45.727, kg, Start date: 03/02/17 18:47: 00 STAGE BUILDER, Stop date: 03/02/17 18:47:00 STAGE BUILDER, Surgical Prophylaxis Only; For patients < 120 kg, ABX Indication: Open Wound Prophylaxis Start Date: 03/02/17 Stop Date: 03/02/17 Status: CompletedceFAZolin (ANES) Route: IV, Drug form: INJ, ONCE, Stop date: 03/02/17 18:34:00 STAGE BUILDER Start Date: 03/02/17 Stop Date: 03/02/17 Status: Completeddexamethasone (ANES) Route: IV, Drug form: INJ, ONCE, Stop date: 03/02/17 18:34:00 STAGE BUILDER Start Date: 03/02/17 Stop Date: 03/02/17 Status: CompletedfentaNYL (ANES) Route: IV, Drug form: INJ, ONCE, Stop date: 03/02/17 18:24:00 STAGE BUILDER Start Date: 03/02/17 Stop Date: 03/02/17 Status: Completedglycopyrrolate (ANES) Route: IV, Drug form: INJ, ONCE, Stop date: 03/02/17 18:45:00 STAGE BUILDER Start Date: 03/02/17 Stop Date: 03/02/17 Status: CompletedketOROLAC (ANES) IV, ONCE Start Date: 03/02/17 Stop Date: 03/02/17 Status: CompletedLactated Ringers (Bolus) IV 1,000 mL, 1,000 ml/hr, Infuse Over: 1 hr, Route: IV, 1,000, Drug form: INJ, ONCE , Priority: STAT, Dosing Weight 45.727 kg, Start date: 03/02/17 15:00:00 STAGE BUILDER, Stop date: 03/02/17 15:00:00 STAGE BUILDER Start Date: 03/02/17 Stop Date: 03/02/17 Status: CompletedLactated Ringers Injection IV (ANES) 1000 mL Route: IV, Total Volume: 1,000, Start date: 03/02/17 17:34:00 STAGE BUILDER, Stop date: 18:34:00 STAGE BUILDER Start Date: 03/02/17 Stop Date: 03/02/17 Status: Completedlidocaine (ANES) Route: IV, Drug form: INJ, ONCE, Stop date: 03/02/17 18:24:00 STAGE BUILDER Start Date: 03/02/17 Stop Date: 03/02/17 Status: Completedmorphine Sulfate 2 mg, 1 mL, Route: IVP, Drug form: INJ, Q2H, Dosing Weight 45.727, kg, PRN Pain Score 7-10, Start date: 03/02/17 18:34:00 STAGE BUILDER, Duration: 30 day, Stop date: 08/11 18:33:00 STAGE BUILDER Notes: (Same as:MORPhine Sulfate) Start Date: 03/02/17 Stop Date: 03/02/17 Status: Discontinuedmorphine Sulfate 4 mg, Route: IVP, ONCE, Dosing Weight 45.727, kg, Priority: STAT, Start date: 14:25:00 STAGE BUILDER,Stop date: 03/02/17 14:25:00 STAGE BUILDER Start Date: 03/02/17 Stop Date: 03/02/17 Status: Completedneostigmine (ANES) Route: IV, Drug form: INJ, ONCE, Stop date: 03/02/17 18:45:00 STAGE BUILDER Start Date: 03/02/17 Stop Date: 03/02/17 Status: Completedondansetron (ANES) Route: IV, Drug form: INJ, ONCE, Stop date: 03/02/17 18:45:00 STAGE BUILDER Start Date: 03/02/17 Stop Date: 03/02/17 Status: Completedpropofol (ANES) Route: IV, Drug form: INJ, ONCE, Stop date: 03/02/17 18:24:00 STAGE BUILDER Start Date: 03/02/17 Stop Date: 03/02/17 Status: Completedrocuronium (ANES) Route: IV, Drug form: INJ, ONCE, Stop date: 03/02/17 18:34:00 STAGE BUILDER Start Date: 03/02/17 Stop Date: 03/02/17 Status: CompletedSodium Chloride 0.9% (Bolus) IV 1,000 mL, Infuse Over: 1 hr, Route: IV, ONCE, Priority: STAT, Dosing Weight 45.727 kg, Start date: 03/02/17 14:25:00 STAGE BUILDER, Stop date: 03/02/17 14:25:00 STAGE BUILDER Start Date: 03/02/17 Stop Date: 03/02/17 Status: CompletedTylenol 650 mg, Route: PO, Drug form: TAB, ONCE, Dosing Weight 45.727, kg, Priority: STAT, Start date: 03/02/17 12:37:00 STAGE BUILDER, Stop date: 03/02/17 12:37:00 STAGE BUILDER Start Date: 03/02/17 Stop Date: 03/02/17 Status: CompletedTylenol with Codeine #3 oral tablet 1 - 2 tab, PO, Q4H, PRN Pain, X 2 week, # 30 tab, 0 Refill(s) Start Date: 03/02/17 Stop Date: 03/16/17 Status: OrderedZofran 4 mg, 2 mL, Route: IVP, Drug form: INJ, Q4H, Dosing Weight 45.727, kg, PRN Nausea, Start date: 03/02/17 18:34:00 STAGE BUILDER, Duration: 30 day, Stop date: 18:33:00 STAGE BUILDER Notes: (Same as: Zofran) MEDICATION WASTE Product Size: 4 mgProduct Wasted: ___ mg Start Date: 03/02/17 Stop Date: 03/02/17 Status: DiscontinuedZofran 4 mg, Route: IVP, Drug form: INJ, ONCE, Dosing Weight 45.727, kg, Priority: STAT , Start date: 03/02/17 14:25:00 STAGE BUILDER, Stop date: 03/02/17 14:25:00 STAGE BUILDER Start Date: 03/02/17 Stop Date: 03/02/17 Status: CompletedZofran 4 mg, Route: PO, Drug form: TAB, Q4H, Dosing Weight 45.727, kg, PRN Nausea, Start date: 03/02/17 18:34:00 STAGE BUILDER, Duration: 30 day, Stop date: 04/01/17 18:33: 00 STAGE BUILDER Start Date: 03/02/17 Stop Date: 03/02/17 Status: Deleted Results BLOOD BANK RESULTS Most recent to oldest [Reference Range]: 1 ABO/Rh O NEG *Unknown* (03/02/17 3:15 PM) Antibody Scrn Negative (03/02/17 3:15 PM) ELECTROLYTES Most recent to oldest [Reference Range]: 1 Sodium Lvl [135-145 mEq/L] 137 mEq/L (03/02/17 11:44 AM) Potassium Lvl [3.5-5.1 mEq/L] 4.1 mEq/L (03/02/17 11:44 AM) Chloride Lvl [95-109 mEq/L] 103 mEq/L (03/02/17 11:44 AM) CO2 [24-32 mEq/L] 28 mEq/L (03/02/17 11:44 AM) AGAP [10.0-20.0 mEq/L] 10.1 mEq/L (03/02/17 11:44 AM) CHEM PANEL Most recent to oldest [Reference Range]: 1 Creatinine Lvl [0.50-1.40 mg/dL] 0.57 mg/dL (03/02/17 11:44 AM) eGFR 124 mL/min/1.73m2 1 *NA* (03/02/17 11:44 AM) BUN [7-22 mg/dL] 6 mg/dL *LOW* (03/02/17 11:44 AM) B/C Ratio [6-25] 11 (03/02/17 11:44 AM) Glucose Lvl [70-99 mg/dL] 89 mg/dL (03/02/17 11:44 AM) Total Protein [6.4-8.4 g/dL] 7.3 g/dL (03/02/17 11:44 AM) Albumin Lvl [3.5-5.0 g/dL] 3.7 g/dL (03/02/17 11:44 AM) Globulin [2.7-4.2 g/dL] 3.6 g/dL (03/02/17 11:44 AM) A/G Ratio [0.7-1.6] 1.0 (03/02/17 11:44 AM) Calcium Lvl [8.5-10.5 mg/dL] 9.2 mg/dL (03/02/17 11:44 AM) ALT [0-65 unit/L] 15 unit/L (03/02/17 11:44 AM) AST [0-37 unit/L] 12 unit/L (03/02/17 11:44 AM) Alk Phos [39-136 unit/L] 77 unit/L (03/02/17 11:44 AM) Bili Total [0.2-1.3 mg/dL] 0.5 mg/dL (03/02/17 11:44 AM) Amylase Lvl [25-115 unit/L] 68 unit/L (03/02/17 11:44 AM) Lipase Lvl [73-393 unit/L] 117 unit/L (03/02/17 11:44 AM) 1Result Comment: The eGFR is calculated using [...] oldest [Reference Range]: 1 S Preg [Negative] Positive *NA* (03/02/17 11:44 AM) hCG Tot 1220 mIU/mL *NA* (03/02/17 11:56 AM) URINE CHEM Most recent to oldest [Reference Range]: 1 U Preg [Negative] Positive *ABN* (03/02/17 11:56 AM) URINE AND STOOL Most recent to oldest [Reference Range]: 1 UA Turbidity [Clear] Clear (03/02/17 11:56 AM) UA Color [Yellow] Yellow *NA* (03/02/17 11:56 AM) UA pH [5.0-8.0] 8.0 (03/02/17 11:56 AM) UA Spec Grav [<=1.030] 1.015 (03/02/17 11:56 AM) UA Glucose [Negative mg/dL] Negative mg/dL *NA* (03/02/17 11:56 AM) UA Blood [Negative] Negative (03/02/17 11:56 AM) UA Ketones [Negative mg/dL] Negative mg/dL *NA* (03/02/17 11:56 AM) UA Protein [Negative mg/dL] Negative mg/dL (03/02/17 11:56 AM) UA Urobilinogen [0.1-1.0 mg/dL] <=1.0 mg/dL *NA* (03/02/17 11:56 AM) UA Bili [Negative] Negative *NA* (03/02/17 11:56 AM) UA Leuk Est [Negative] Negative (03/02/17 11:56 AM) UA Nitrite [Negative] Negative (03/02/17 11:56 AM) UA WBC [0-5 /HPF] <1 /HPF (03/02/17 11:56 AM) UA RBC [0-2 /HPF] 3 /HPF *HI* (03/02/17 11:56 AM) UA Sq Epi [Few /LPF] Few /LPF *NA* (03/02/17 11:56 AM) UA Mucus [None Seen /LPF] Few /LPF *NA* (03/02/17 11:56 AM) HEMATOLOGY Most recent to oldest [Reference Range]: 1 WBC [3.7-10.4 K/CMM] 9.8 K/CMM (03/02/17 11:44 AM) RBC [4.20-5.40 M/CMM] 4.50 M/CMM (03/02/17 11:44 AM) Hgb [12.0-16.0 g/dL] 12.9 g/dL (03/02/17 11:44 AM) Hct [36.0-48.0 %] 38.0 % (03/02/17 11:44 AM) MCV [80.0-98.0 fL] 84.6 fL (03/02/17 11:44 AM) MCH [27.0-31.0 pg] 28.7 pg (03/02/17 11:44 AM) MCHC [32.0-36.0 g/dL] 33.9 g/dL (03/02/17 11:44 AM) RDW [11.5-14.5 %] 13.5 % (03/02/17 11:44 AM) Platelet [133-450 K/CMM] 420 K/CMM (03/02/17 11:44 AM) MPV [7.4-10.4 fL] 7.1 fL *LOW* (03/02/17 11:44 AM) Segs [45.0-75.0 %] 67.4 % (03/02/17 11:44 AM) Lymphocytes [20.0-40.0 %] 23.4 % (03/02/17 11:44 AM) Monocytes [2.0-12.0 %] 8.0 % (03/02/17 11:44 AM) Eosinophils [0.0-4.0 %] 0.3 % (03/02/17 11:44 AM) Basophils [0.0-1.0 %] 0.9 % (03/02/17 11:44 AM) Segs-Bands # [1.5-8.1 K/CMM] 6.6 K/CMM (03/02/17 11:44 AM) Lymphocytes # [1.0-5.5 K/CMM] 2.3 K/CMM (03/02/17 11:44 AM) Monocytes # [0.0-0.8 K/CMM] 0.8 K/CMM (03/02/17 11:44 AM) Basophils # [0.0-0.2 K/CMM] 0.1 K/CMM (03/02/17 11:44 AM) Immunizations Given and Recorded Vaccine Date Status Refusal Reason RhoGam (MAR Charting) 08/14/13 Given RhoGam (MAR Charting)1 05/04/09 Given 1Result Comment: LEFT HIP Procedures Procedure Date Related Diagnosis Body Site Bone operation1 section2 Colon operation Colonoscopy Diagnostic endoscopy Exploratory laparotomy 1left femor metal [id number] Social History Social History Type Response Substance Abuse 1 Sexual Sexually active: Yes. History of sexual abuse: No. Sex Mutually Satisfying: No. Exercise 2 Employment/School 3 Alcohol 4 Smoking Status Current every day smoker; Type: Cigarettes; Exposure to Tobacco Smoke None; Cigarette Smoking Last 365 Days Yes; Reg Smoking Cessation Counseling No5 [id number] ppd Assessment and Plan No data available for this section
--- OUTSIDE RECORDS SUMMARY | 2018-06-26 20:35 | XMS REPORT | Summary of Care ---
:1985 Author Encounter NATHALY Fleming(SELVIN) [id number] Date(s): 01/15/14 - 01/15/[address] Discharge Disposition: Not Seen Physician Attending: Paul Kang MD Reason for Visit LEG PAIN/EDEMA-HX:PLATE Vital Signs Most recent to oldest [Reference Range]: 1 Height 165.1 cm (01/15/14 1:51 PM) Temperature Oral [96.4-99.1 DegF] 97.2 DegF (01/15/14 1:51 PM) Systolic Blood Pressure [90-140 mmHg] 113 mmHg (01/15/14 1:51 PM) Diastolic Blood Pressure [60-90 mmHg] 77 mmHg (01/15/14 1:51 PM) Respiratory Rate [14-20 BRMIN] 18 BRMIN (01/15/14 1:51 PM) Peripheral Pulse Rate [60-100 bpm] 90 bpm (01/15/14 1:51 PM) Weight 53.636 kg (01/15/14 1:51 PM) Body Mass Index 19.68 m2 (01/15/14 1:51 PM) Problem List Condition Effective Dates Status Health Status Informant Anxiety(Confirmed) Active Bipolar(Confirmed) Active Depression(Confirmed) Active Gastritis(Confirmed) Active Insomnia(Confirmed) Active Intussusception of Resolved intestine(Confirmed) Intussusception of the Active intestine(Confirmed) (Confirmed) 11/22/12 - 08/13/13 Resolved (Confirmed) 08/10/08 - 05/03/09 Resolved (Confirmed) 10/13/10 - 11/24/10 Resolved Allergies, Adverse Reactions, Alerts Substance Reaction Severity Status NKDA Active Medications No data available for this section Medications Administered During Your Visit No data available for this section Immunizations Vaccine Date Refusal Reason RhoGam (APR Charting) 08/14/13 RhoGam (MAR Charting)1 05/04/09 1Result Comment: LEFT HIP Social History Social History Type Response Substance Abuse 1 Sexual Sexually active: Yes, History of sexual abuse: No, Sex with Your Partner Mutually Satisfying No Exercise 2 Employment/School 3 Alcohol 4 Smoking Status Current every day smoker, Type: Cigarettes, Exposure to Tobacco Smoke None, Cigarette Smoking Last 365 Days Yes, Reg Smoking Cessation Counseling No5 [id number] ppd
--- OUTSIDE RECORDS SUMMARY | 2018-06-26 20:35 | XMS REPORT | CCD ---
:1985 Author Organization [facility] Care Team Providers Name Role Phone Jh Juancarlosmegha Friedman Consulting Provider Allergies, Adverse Reactions, Alerts Substance Reaction Status NKDA Active Problem List Condition Effective Dates Status Depression Resolved Gastritis Active Intussusception of the intestine Active Medications Medication Instructions Start Date End Date Status GI cocktail 30 mL, Route: PO, Drug 10/19/2012 10/19/2012 Completed Form: SUSP, Dosing Weight 49.545, kg, ONCE, STAT, Start date: 10/19/12 22:34:00, Stop date: 10/19/12 22:34:00 RhoGam (APR Charting) 300 microgram, Route: IM, 05/04/2009 05/04/2009 Completed ONCE, Start date: 05/04/09 8:47:00, Stop date: 05/04/09 8:47:00 Vicodin 5/500 oral tablet 1-2 tablets, PO, TID, PRN, 10/20/2012 Ordered 15 tab, for Pain, Substitution Allowed, Maintenance ketorolac 30 mg, 1 mL, Route: IVP, 10/19/2012 10/19/2012 Completed Drug form: INJ, ONCE, Dosing Weight 49.545, kg, Priority: STAT, Start date: 10/19/12 21:37:00, Stop date: 10/19/12 21:37:00 naproxen 500 mg oral 500 mg, 1 tab, PO, Q12H, 10/20/2012 Ordered tablet PRN, 20 tab, Pain, Substitution Allowed, TAB [place] 5/325 oral tablet 2 tab, Route: PO, Drug 10/19/2012 10/19/2012 Completed Form: TAB, Dosing Weight 49.545, kg, ONCE, Start date: 10/19/12 23:27:00, Stop date: 10/19/12 23:27:00 Immunizations Vaccine Date Status RhoGam (APR Charting)1 05/04/2009 Auth (Verified) 1Result Comment: LEFT HIP Vital Signs Most recent to oldest [Reference 1 2 Range]: Height 165.1 cm (10/19/2012 21:02:00) Temperature Oral [96.4-99.1 DegF] 98.0 DegF 98.3 DegF (10/20/2012 01:00:00) (10/19/2012:02:00) Systolic Blood Pressure [90-140 mmHg] 116 mmHg 116 mmHg (10/20/2012 01:00:00) (10/19/2012:02:00) Diastolic Blood Pressure [60-90 mmHg] 71 mmHg 57 mmHg (10/20/2012 01:00:00) *LOW* (10/19/2012:02:00) Respiratory Rate [14-20 BRMIN] 18 BRMIN 20 BRMIN (10/20/2012 01:00:00) (10/19/2012:02:00) Peripheral Pulse Rate [60-100 bpm] 87 bpm 90 bpm (10/20/2012 01:00:00) (10/19/2012:02:00) Weight 49.545 kg (10/19/2012:02:00) Results CHEMISTRY Most recent to oldest [Reference Range]: 1 Sodium Lvl [135-145 mEq/L] 138 mEq/L (10/19/2012 22:00:00) Potassium Lvl [3.5-5.1 mEq/L] 3.4 mEq/L *LOW* (10/19/2012 22:00:00) Chloride Lvl [95-109 mEq/L] 103 mEq/L (10/19/2012 22:00:00) CO2 [24-32 mEq/L] 29 mEq/L (10/19/2012 22:00:00) AGAP [10.0-20.0 mEq/L] 9.4 mEq/L *LOW* (10/19/2012 22:00:00) Creatinine Lvl [0.5-1.4 mg/dL] 0.6 mg/dL (10/19/2012 22:00:00) eGFR 125 mL/min/1.73m2 1 *NA* (10/19/2012 22:00:00) BUN [7-22 mg/dL] 7 mg/dL (10/19/2012 22:00:00) Glucose Lvl [70-99 mg/dL] 91 mg/dL 2 (10/19/2012 22:00:00) Calcium Lvl [8.5-10.5 mg/dL] 9.1 mg/dL (10/19/2012 22:00:00) BNP [<=100 pg/mL] 24 pg/mL 3 (10/19/2012 22:00:00) 1Result Comment: The eGFR is calculated using [...] values reflect the clinical guidelines of the [employer].3Interpretive Data: Elevated results are in line with increasing severity of congestive heart failure. Minor elevations between 100 and 300 may be seen with Myocardial Ischemia, Sodium retaining drugs, and compensated/treated heart failure.HEMATOLOGY Most recent to oldest [Reference Range]: 1 D-Dimer 0.43 ug/mL FEU 4 *NA* (10/19/2012 22:00:00) 4Interpretive Data: In DIC, quantitative D-Dimer is generally greater than 0.66 ug/mL FEU. Values of quantitative D-Dimer less than 0.40 ug/mL FEU have been reported to be associated with a low probability of deep vein thrombosis/pulmonary embolism. This test alone should not be used to rule out DVT/PE. Procedures Procedures Date Related Diagnosis Exploratory laparotomy
--- OUTSIDE RECORDS SUMMARY | 2018-06-26 20:35 | XMS REPORT | Summary of Care ---
:1985 Author Encounter HQ Bernadette(SELVIN) [id number] Date(s): 08/13/13 - 08/15/13 [facility] [id number] Discharge Disposition: Home Physician Attending: Sedrick Mcclelland MD Physician Admitting: Sedrick Mcclelland MD Reason for Visit , DELIVERY Vital Signs Most recent to oldest 1 2 3 [Reference Range]: Height 165.1 cm 165.1 cm (08/13/13 10:38 AM) (08/11/13 2:14 PM) Temperature Oral [96.4-99.1 97.0 DegF 97.6 DegF 97.0 DegF DegF] (08/15/13 7:59 AM) (08/14/13 9:24 PM) (08/14/13 4:05 PM) Systolic Blood Pressure 104 mmHg 118 mmHg 90 mmHg [90-140 mmHg] (08/15/13 7:59 AM) (08/14/13 9:24 PM) (08/14/13 4:05 PM) Diastolic Blood Pressure 60 mmHg 79 mmHg 57 mmHg [60-90 mmHg] (08/15/13 7:59 AM) (08/14/13 9:24 PM) *LOW* (08/14/13 4:05 PM) Respiratory Rate [14-20 BRMIN] 20 BRMIN 20 BRMIN 20 BRMIN (08/15/13 7:59 AM) (08/14/13 9:24 PM) (08/14/13 4:05 PM) Peripheral Pulse Rate [60-100 88 bpm 88 bpm 84 bpm bpm] (08/15/13 7:59 AM) (08/14/13 9:24 PM) (08/14/13 4:05 PM) Weight 60.597 kg 60.455 kg (08/13/13 10:38 AM) (08/11/13 2:14 PM) Body Mass Index 22.23 m2 22.18 m2 (08/13/13 10:38 AM) (08/11/13 2:14 PM) Problem List Condition Effective Dates Status [...] 2 tab, Route: PO, Drug form: TAB, Q4H, Dosing Weight 60.597, kg, PRN Other -See Comment, Start date: 08/13/13 15:32:00, Duration: 30 day, Stop date: 09/12/13 15:31:00 Notes: Do not exceed 4 gm/day. (Same as: Tylenol) Start Date: 08/13/13 Stop Date: 08/15/13 Status: Discontinuedacetaminophen 1 gm, 100 mL, Route: IV, Drug form: INJ, Q6H, Dosing Weight 60.597, kg, PRN Pain , Start date: 08/13/13 16:59:00, Duration: 30 day, Stop date: 09/12/13 16:58:00 Notes: Infuse over 15 minutes Do not exceed 4gm/day of acetaminophen Start Date: 08/13/13 Stop Date: 08/15/13 Status: Discontinuedacetaminophen-hydrocodone 325 mg-10 mg oral tablet 1 tab, Route: PO, Drug Form: TAB, Dosing Weight 60.597, kg, Q4H, PRN Pain Score 7-10, Start date: 08/13/13 15:32:00, Duration: 30 day, Stop date: 09/12/13 15:31 :00 Notes: Do not exceed 4gm/day of acetaminophen. (Same as: [place] 325/10) Start Date: 08/13/13 Stop Date: 08/15/13 Status: Discontinuedacetaminophen-hydrocodone 325 mg-5 mg oral tablet 1 tab, Route: PO, Drug Form: TAB, Dosing Weight 60.597, kg, Q4H, PRN Pain Score 4-6, Start date: 08/13/13 15:32:00, Duration: 30 day, Stop date: 09/12/13 15:31: 00 Notes: (Same as: [place] 325/5) Do not exceed 4gm/day of acetaminophen. Start Date: 08/13/13 Stop Date: 08/15/13 Status: Discontinuedbisacodyl 10 mg, 1 supp, Route: WV, Drug form: SUPP, PRN, Dosing Weight 60.597, kg, PRN Other -See Comment, Start date: 08/13/13 15:32:00, Duration: 30 day, Stop date: 09/12/13 15:31:00 Notes: (Same As: Dulcolax, Bisco-Lax) Start Date: 08/13/13 Stop Date: 08/15/13 Status: Discontinuedbisacodyl 15 mg, 3 tab, Route: PO, Drug form: ECTAB, Daily, Dosing Weight 60.597, kg, PRN Other -See Comment, Start date: 08/13/13 15:32:00, Duration: 30 day, Stop date: 09/12/13 15:31:00 Notes: (Same As: Dulcolax, Correctol) (Do Not Crush) "Do Not Crush" Start Date: 08/13/13 Stop Date: 08/15/13 Status: Discontinuedcarboprost 250 microgram, 1 mL, Route: IM, Drug form: INJ, ONCALL, Dosing Weight 60.597, kg , Start date: 08/13/13 11:00:00, Duration: 30 day, Stop date: 09/12/13 10:59:00 Notes: (Same As: Hemabate) Start Date: 08/13/13 Stop Date: 08/13/13 Status: DiscontinuedceFAZolin 2 gm, Route: IVPB, ONCALL, Dosing Weight 60.597, kg, Start date: 08/13/13 11:00: 00, Duration: 1 doses or times Start Date: 08/13/13 Stop Date: 08/13/13 Status: Discontinuedcitric acid-sodium citrate 30 mL, Route: PO, Drug Form: SOLN, Dosing Weight 60.597, kg, ONCE, Start date: 08/13/13 10:56:00, Duration: 1 doses or times, Stop date: 08/13/13 10:56:00 Notes: (Same As: Bicitra) Start Date: 08/13/13 Stop Date: 08/13/13 Status: CompletedDemerol HCl 25 mg, 1 mL, Route: IVP, Drug form: INJ, Q4H, Dosing Weight 60.597, kg, PRN Pain , Start date: 08/13/13 17:59:00, Duration: 4 day, Stop date: 08/17/13 17:58:00 Notes: (Same as: Demerol) "Use Precaution in Elderly, Seizure disorders, and Renal impairment" Start Date: 08/13/13 Stop Date: 08/15/13 Status: DiscontinuedDemerol HCl 25 mg, 1 mL, Route: IVP, Drug form: INJ, Q4H, Dosing Weight 60.597, kg, PRN Pain , Start date: 08/13/13 12:03:00, Duration: 4 day, Stop date: 08/17/13 12:02:00 Notes: (Same as: Demerol) "Use Precaution in Elderly, Seizure disorders, and Renal impairment" Start Date: 08/13/13 Stop Date: 08/13/13 Status: DiscontinuedFerralet 90 oral tablet 1 tab, PO, Daily, # 30 tab, 2 Refill(s) Start Date: 08/14/13 Status: Orderedibuprofen 800 mg, 2 tab, Route: PO, Drug form: TAB, Q8H, Dosing Weight 60.597, kg, PRN Pain Score 6-10, Start date: 08/13/13 15:32:00, Duration: 30 day, Stop date: 15:31:00 Notes: (Same as: Motrin)"Do Not Crush" Give with food. Start Date: 08/13/13 Stop Date: 08/15/13 Status: Discontinuedibuprofen 600 mg, 1 tab, Route: PO, Drug form: TAB, Q6H, Dosing Weight 60.597, kg, PRN Pain Score 1-5, Start date: 08/13/13 15:32:00, Duration: 30 day, Stop date: 15:31:00 Notes: (Same as: Motrin)"Do Not Crush" Take with food. Start Date: 08/13/13 Stop Date: 08/15/13 Status: Discontinuedketorolac 30 mg, 1 mL, Route: IV, Drug form: INJ, Q6H, Dosing Weight 60.597, kg, PRN Pain , Start date: 08/13/13 16:58:00, Duration: 4 day, Stop date: 08/17/13 16:57:00 Notes: (Same as:Toradol) IV bolus must be given >15 seconds. Give IM administration slowly and deeply into the muscle. Not for use > 4 days Start Date: 08/13/13 Stop Date: 08/15/13 Status: Discontinuedketorolac 30 mg/mL injectable solution 30 mg, 1 mL, Route: IV, Drug form: INJ, Q6H, Dosing Weight 60.597, kg, PRN Pain , Start date: 08/13/13 17:59:00, Duration: 1 day, Stop date: 08/14/13 17:58:00 Notes: (Same as:Toradol) IV bolus must be given >15 seconds. Give IM administration slowly and deeply into the muscle. Not for use > 4 days Start Date: 08/13/13 Stop Date: 08/14/13 Status: Completedketorolac 30 mg/mL injectable solution 30 mg, 1 mL, Route: IV, Drug form: INJ, Q6H, Dosing Weight 60.597, kg, PRN Pain , Start date: 08/13/13 12:03:00, Duration: 1 day, Stop date: 08/14/13 12:02:00 Notes: (Same as:Toradol) IV bolus must be given >15 seconds. Give IM administration slowly and deeply into the muscle. Not for use > 4 days Start Date: 08/13/13 Stop Date: 08/13/13 Status: DiscontinuedLactated Ringers Injection IV 1,000 mL 1,000 mL, Rate: 125 ml/hr, Infuse over: 8 hr, Route: IV, Dosing Weight 60.597 kg , Total Volume: 1,000, Start date: 08/13/13 10:56:00, Duration: 30 day, Stop date: 09/12/13 10:55:00 Start Date: 08/13/13 Stop Date: 08/13/13 Status: DiscontinuedLactated Ringers IV 1,000 mL 1,000 mL, Rate: 100 ml/hr, Infuse over: 10 hr, Route: IV, Dosing Weight 60.597 kg, Total Volume: 1,000, Start date: 08/13/13 15:32:00, Duration: 30 day, Stop date: 09/12/13 15:31:00 Start Date: 08/13/13 Stop Date: 08/15/13 Status: DiscontinuedLaMICtal 100 mg, 1 tab, Route: PO, Drug form: TAB, Daily, Dosing Weight 60.597, kg, Start date: 08/14/13 9:00:00, Duration: 30 day, Stop date: 09/12/13 9:00:00 Notes: (Same as:LaMICtal) Start Date: 08/14/13 Stop Date: 08/15/13 Status: Discontinuedlanolin topical cream 1 appl, Route: TOP, PRN, Drug form: OINT, PRN Other -See Comment, Start date: 15:32:00, Duration: 30 day, Stop date: 09/12/13 15:31:00 Start Date: 08/13/13 Stop Date: 08/15/13 Status: Discontinuedmethylergonovine 0.2 mg, 1 mL, Route: IM, Drug form: INJ, ONCALL, Dosing Weight 60.597, kg, Start date: 08/13/13 11:00:00, Duration: 30 day, Stop date: 09/12/13 10:59:00 Notes: (Same as:Methergine) Start Date: 08/13/13 Stop Date: 08/13/13 Status: Discontinuedmisoprostol 1,000 microgram, 10 tab, Route: WV, Drug form: TAB, ONCALL, Dosing Weight 60.597 , kg, Start date: 08/13/13 11:00:00, Duration: 30 day, Stop date: 09/12/13 10:59 :00 Notes: (Same as:Cytotec) Take with food Start Date: 08/13/13 Stop Date: 08/13/13 Status: Discontinuedmorphine 1 mg/ml EXCELSIOR MACHINE FEEDER (30 mg/30 mL) INJ Syringe 30 mg 30 mg, 30 mL, Route: IV, Initial Loading Dose: 2 mg, EXCELSIOR MACHINE FEEDER Dose: 1 mg, EXCELSIOR MACHINE FEEDER Lockout: 10 minutes, Continuous Basal Rate: 1 mg, 4 Hour Limit (In MG): 30, Drug Form: INJ, Continuous, Start date: 08/13/13 18:00:00, Duration: 30 day, Stop date: 09/12/13 17:5... Notes: Dose: Delay: Basal rate: 4hr limit:( Same as:Sergio) Start Date: 08/13/13 Stop Date: 08/15/13 Status: Discontinuedmorphine 1 mg/ml EXCELSIOR MACHINE FEEDER (30 mg/30 mL) INJ Syringe 30 mg 30 mg, 30 mL, Route: IV, Initial Loading Dose: 2 mg, EXCELSIOR MACHINE FEEDER Dose: 1 mg, EXCELSIOR MACHINE FEEDER Lockout: 10 minutes, Continuous Basal Rate: 1 mg, 4 Hour Limit (In MG): 30, Drug Form: INJ, Continuous, Start date: 08/13/13 12:30:00, Duration: 30 day, Stop date: 09/12/13 12:2... Notes: Dose: Delay: Basal rate: 4hr limit:( Same as:Elvira-Mikhail) Start Date: 08/13/13 Stop Date: 08/15/13 Status: Discontinuedmorphine Sulfate 2 mg, 1 mL, Route: IVP, Drug form: INJ, Q2H, Dosing Weight 60.597, kg, PRN Pain Score 7-10, Start date: 08/13/13 10:56:00, Duration: 30 day, Stop date: 10:55:00 Notes: (Same as:MORPhine Sulfate) Start Date: 08/13/13 Stop Date: 08/13/13 Status: DiscontinuedMotrin 800 mg oral tablet 800 mg=1 tab, PO, Q8H, Pain, Take with food, # 30 tab, 0 Refill(s) Special Instructions: Take with food Start Date: 08/14/13 Status: Orderednaloxone 0.04 mg, 0.1 mL, Route: IVP, Drug form: SOLN, Q2MIN, Dosing Weight 60.597, kg, PRN Narcotic Reversal, Start date: 08/13/13 17:59:00, Duration: 30 day, Stop date: 09/12/13 17:58:00 Notes: Same as: Narcan Start Date: 08/13/13 Stop Date: 08/15/13 Status: Discontinuednaloxone 0.04 mg, 0.1 mL, Route: IVP, Drug form: INJ, Q2MIN, Dosing Weight 60.597, kg, PRN Narcotic Reversal,Start date: 08/13/13 12:03:00, Duration: 30 day, Stop date : 09/12/13 12:02:00 Notes: Same as Narcan Start Date: 08/13/13 Stop Date: 08/15/13 Status: DiscontinuedNorco 5/325 oral tablet 1-2 tab, PO, Q4-6H, Pain, # 20 tab, 0 Refill(s) Start Date: 08/14/13 Stop Date: 08/19/13 Status: OrderedNS 500ml + Pitocin 30 units (Titrate) IV 30 unit 30 unit, 500 mL, Rate: 42 ml/hr, Infuse over: 11.9 hr, Dosing Weight 60.597, kg , Route: IV, Total Volume: 500 mL, Start date: 08/13/13 10:56:00, Duration: 1 doses or times, Stop date: 08/13/13 22:49:00, Replace Every: 11.9 hr Notes: (Same as: 1/2NS-Pitocin) Start Date: 08/13/13 Stop Date: 08/13/13 Status: DiscontinuedOfirmev 1,000 mg, 100 mL, Route: IV, Drug form: INJ, Q6H, Dosing Weight 60.597, kg, PRN Pain, for > or=50 kg, Start date: 08/13/13 17:59:00, Duration: 1 day, Stop date : 08/14/13 17:58:00 Notes: Infuse over 15 minutes Do not exceed 4gm/day of acetaminophen Start Date: 08/13/13 Stop Date: 08/14/13 Status: CompletedOfirmev 1,000 mg, 100 mL, Route: IV, Drug form: INJ, Q6H, Dosing Weight 60.597, kg, PRN Pain, for > or=50 kg, Start date: 08/13/13 12:03:00, Duration: 1 day, Stop date : 08/14/13 12:02:00 Notes: Infuse over 15 minutes Do not exceed 4gm/day of acetaminophen Start Date: 08/13/13 Stop Date: 08/13/13 Status: Discontinuedondansetron 4 mg, 2 mL, Route: IVP, Drug form: INJ, Q8H, Dosing Weight 60.597, kg, PRN Nausea & Vomiting, Start date: 08/13/13 10:56:00, Duration: 30 day, Stop date: 09/12/13 10:55:00 Notes: (Same as: Zofran) Start Date: 08/13/13 Stop Date: 08/13/13 Status: Discontinuedoxytocin 30 units in 1/2 NS 500ml (Titrate) IV 30 unit 30 unit, 500 mL, Rate: 42 ml/hr, Infuse over: 11.9 hr, Dosing Weight 60.597, kg , Route: IV, Total Volume: 500 mL, Start date: 08/13/13 15:32:00, Duration: 1 doses or times, Stop date: 08/14/13 3:25:00,Replace Every: 11.9 hr Notes: (Same as: 1/2NS-Pitocin) Start Date: 08/13/13 Stop Date: 08/14/13 Status: CompletedPepcid 20 mg, Route: IV, ONCE, Dosing Weight 60.597, kg, Start date: 08/13/13 10:59:00 , Stop date: 08/13/1409:59:00 Start Date: 08/13/13 Stop Date: 08/13/13 Status: CompletedPrenatal Multivitamins oral tablet 1 tab, Route: PO, Drug Form: TAB, Dosing Weight 60.597, kg, Daily, Start date: 08/13/13 18:00:00, Duration: 30 day, Stop date: 09/12/13 9:00:00 Start Date: 08/13/13 Stop Date: 08/15/13 Status: DiscontinuedReglan 10 mg, Route: IV, ONCE, Dosing Weight 60.597, kg, Start date: 08/13/13 10:59:00 , Stop date: 08/13/1409:59:00 Start Date: 08/13/13 Stop Date: 08/13/13 Status: CompletedRocephin 2 gm, Route: IV, ONCE, Dosing Weight 60.597, kg, Start date: 08/13/13 10:58:00, Stop date: 08/13/13 10:58:00 Start Date: 08/13/13 Stop Date: 08/13/13 Status: CompletedSaline Flush 0.9% 5 ml, Route: IVP, Drug Form: INJ, Dosing Weight 60.597, kg, PRN, PRN Line Flush , Start date: 08/13/13 15:32:00, Duration: 30 day, Stop date: 09/12/13 15:31:00 Notes: (Same as: BD Posiflush) Start Date: 08/13/13 Stop Date: 08/15/13 Status: DiscontinuedSaline Flush 0.9% 5 ml, Route: IVP, Drug Form: INJ, Dosing Weight 60.597, kg, Q12H, Start date: 21:00:00, Duration: 30 day, Stop date: 09/12/13 9:00:00 Notes: (Same as: BD Posiflush) Start Date: 08/13/13 Stop Date: 08/15/13 Status: Discontinuedsimethicone 160 mg, 2 tab, Route: PO, Drug form: CHEWTAB, Q8H, Dosing Weight 60.597, kg, PRN Gas, Start date: 08/13/13 15:32:00, Duration: 30 day, Stop date: 09/12/13 15 :31:00 Notes: (Same as: Mylicon) Start Date: 08/13/13 Stop Date: 08/15/13 Status: Discontinuedterbutaline 0.25 mg, 0.25 mL, Route: SUB-Q, Drug form: INJ, ONCALL, Dosing Weight 60.597, kg , PRN Other -See Comment, Start date: 08/13/13 10:56:00, Duration: 1 doses or times, Stop date: Limited # of times Notes: DO NOT USE IN PERFORMANCE TEST ARCHITECT AREA(Same As: Gregory) Start Date: 08/13/13 Stop Date: 08/13/13 Status: DiscontinuedUltram 50 mg oral tablet 1 - 2 tabs, PO, Q4-6H, as needed for pain, pain score 6-10, # 30 tab, 0 Refill(s ) Special Instructions: pain score 6-10 Start Date: 08/14/13 Status: OrderedValium 0.5, PO, Bedtime, 0 Refill(s) Start Date: 08/13/13 Stop Date: 08/14/13 Status: DiscontinuedXanax 0.5 mg oral tablet 0.5 mg=1 tab, PO, BID, anxiety, stress, # 20 tab, 0 Refill(s) Start Date: 08/13/13 Stop Date: 08/14/13 Status: DiscontinuedXanax 0.5 mg oral tablet 0.5 mg, 1 tab, Route: PO, Drug form: TAB, BID, Dosing Weight 60.597, kg, PRN Anxiety, Start date: 08/13/13 12:05:00, Duration: 30 day, Stop date: 09/12/13 12 :04:00 Notes: With food or milk(Same as: Xanax) Start Date: 08/13/13 Stop Date: 08/15/13 Status: DiscontinuedZofran 4 mg, 2 mL, Route: IV, Drug form: INJ, Q8H, Dosing Weight 60.597, kg, PRN Nausea , Start date: 08/13/13 21:21:00, Duration: 30 day, Stop date: 09/12/13 21:20:00 Notes: (Same as: Zofran) Start Date: 08/13/13 Stop Date: 08/15/13 Status: Discontinuedzolpidem 5 mg, 1 tab, Route: PO, Drug form: TAB, Bedtime, Dosing Weight 60.597, kg, PRN Insomnia, Start date:08/13/13 15:32:00, Duration: 30 day, Stop date: 09/12/13 15 :31:00 Notes: (Same As: Ambien) Start Date: 08/13/13 Stop Date: 08/15/13 Status: Discontinued Results BLOOD BANK RESULTS Most recent to oldest [Reference Range]: 1 2 3 ABO/Rh O NEG O NEG *Unknown* *Unknown* (08/14/13 2:40 AM) (08/11/13 2:00 PM) Antibody Scrn Negative (08/11/13 2:00 PM) FS Pt Neg (08/14/13 2:40 AM) Rhig Reqd See Note 1 (08/11/13 2:00 PM) Rhig Product available 2 (08/14/13 5:46 AM) 1Result Comment: 08/13/2013 20:06 TIALDRID This patient is a candidate for RhO(D) immune globulin.2Result Comment: 2013 06:05 [id number] notified Jyoti Carvalho RN at 08/14/2013 06:05 brDRUG SCREEN Most recent to oldest [Reference Range]: 1 2 3 U Amph Scr [Negative] Negative *NA* (08/13/13 12:15 PM) U Fabby Scr [Negative] Negative *NA* (08/13/13 12:15 PM) U Benzodia Scr [Negative] Positive *ABN* (08/13/13 12:15 PM) U Cocaine Scr [Negative] Negative *NA* (08/13/13 12:15 PM) U Opiate Scr [Negative] Negative *NA* (08/13/13 12:15 PM) U Phencyc Scr [Negative] Negative *NA* (08/13/13 12:15 PM) U Cannab Scr [Negative] Negative *NA* (08/13/13 12:15 PM) UDS Note See Note 3 (08/13/13 12:15 PM) 3Interpretive Data: Drugs reported as positive have not been confirmed by a second method and should be used for medical purposes only. To order confirmation, contact laboratory. note: Below are cut-off [...] ng/mL Methadone 300 ng/mL Urine alcohol 20 mg/dLURINE AND STOOL Most recent to oldest [Reference Range]: 1 2 3 UA Turbidity [Clear] Clear (08/13/13 12:15 PM) UA Color [Yellow] Yellow *NA* (08/13/13 12:15 PM) UA pH [5.0-8.0] 7.5 (08/13/13 12:15 PM) UA Spec Grav [<=1.030] 1.015 (08/13/13 12:15 PM) UA Glucose [Negative mg/dL] Negative mg/dL (08/13/13 12:15 PM) UA Blood [Negative] Negative (08/13/13 12:15 PM) UA Ketones [Negative mg/dL] Negative mg/dL *NA* (08/13/13 12:15 PM) UA Protein [Negative mg/dL] Negative mg/dL (08/13/13 12:15 PM) UA Urobilinogen [0.1-1.0 EU/dL] 0.2 EU/dL (08/13/13 12:15 PM) UA Bili [Negative] Negative *NA* (08/13/13 12:15 PM) UA Leuk Est [Negative] Negative (08/13/13 12:15 PM) UA Nitrite [Negative] Negative (08/13/13 12:15 PM) UA WBC [None Seen /HPF] 0-2 /HPF (08/13/13 12:15 PM) UA RBC [0-2 /HPF] 0-2 /HPF (08/13/13 12:15 PM) UA Bacteria [None Seen /HPF] Occasional /HPF (08/13/13 12:15 PM) UA Sq Epi [Few /LPF] Few /LPF (08/13/13 12:15 PM) IMMUNOLOGY Most recent to oldest [Reference Range]: 1 2 3 RPR [Non Reactive] Non Reactive (08/11/13 2:00 PM) HIV 1/2 Ab [Negative] Negative *NA* (08/11/13 2:00 PM) Hep Bs Ag [Negative] Negative *NA* (08/11/13 2:00 PM) HEMATOLOGY Most recent to oldest 1 2 3 [Reference Range]: WBC [3.7-10.4 K/CMM] 18.4 K/CMM 8.4 K/CMM *HI* (08/11/13 2:00 PM) (08/13/13 11:10 AM) RBC [4.20-5.40 M/CMM] 3.63 M/CMM 3.42 M/CMM *LOW* *LOW* (08/13/13 11:10 AM) (08/11/13 2:00 PM) Hgb [12.0-16.0 g/dL] 9.6 g/dL 10.8 g/dL 10.3 g/dL *LOW* *LOW* *LOW* (08/14/13 2:40 AM) (08/13/13 11:10 AM) (08/11/13 2:00 PM) Hct [36.0-48.0 %] 26.5 % 31.5 % 29.6 % *LOW* *LOW* *LOW* (08/14/13 2:40 AM) (08/13/13 11:10 AM) (08/11/13 2:00 PM) MCV [81.0-99.0 fL] 86.7 fL 86.8 fL (08/13/13 11:10 AM) (08/11/13 2:00 PM) MCH [27.0-31.0 pg] 29.7 pg 30.1 pg (08/13/13 11:10 AM) (08/11/13 2:00 PM) MCHC [32.0-36.0 g/dL] 34.3 g/dL 34.7 g/dL (08/13/13 11:10 AM) (08/11/13 2:00 PM) RDW [11.5-14.5 %] 13.3 % 13.5 % (08/13/13 11:10 AM) (08/11/13 2:00 PM) Platelet [133-450 K/CMM] 294 K/CMM 274 K/CMM (08/13/13 11:10 AM) (08/11/13 2:00 PM) MPV [7.4-10.4 fL] 8.2 fL 8.0 fL (08/13/13 11:10 AM) (08/11/13 2:00 PM) Segs [45.0-75.0 %] 83.2 % 68.7 % *HI* (08/11/13 2:00 PM) (08/13/13 11:10 AM) Lymphocytes [20.0-40.0 %] 9.9 % 19.4 % *LOW* *LOW* (08/13/13 11:10 AM) (08/11/13 2:00 PM) Monocytes [2.0-12.0 %] 5.6 % 10.3 % (08/13/13 11:10 AM) (08/11/13 2:00 PM) Eosinophils [0.0-4.0 %] 0.7 % 1.2 % (08/13/13 11:10 AM) (08/11/13 2:00 PM) Basophils [0.0-1.0 %] 0.6 % 0.4 % (08/13/13 11:10 AM) (08/11/13 2:00 PM) Segs-Bands # [1.5-8.1 K/CMM] 15.3 K/CMM 5.8 K/CMM *HI* (08/11/13 2:00 PM) (08/13/13 11:10 AM) Lymphocytes # [1.0-5.5 1.8 K/CMM 1.6 K/CMM K/CMM] (08/13/13 11:10 AM) (08/11/13 2:00 PM) Monocytes # [0.0-0.8 K/CMM] 1.0 K/CMM 0.9 K/CMM *HI* *HI* (08/13/13 11:10 AM) (08/11/13 2:00 PM) Eosinophils # [0.0-0.5 0.1 K/CMM 0.1 K/CMM K/CMM] (08/13/13 11:10 AM) (08/11/13 2:00 PM) Basophils # [0.0-0.2 K/CMM] 0.1 K/CMM (08/13/13 11:10 AM) Medications Administered During Your Visit No data available for this section Immunizations Vaccine Date Refusal Reason RhoGam (APR Charting) 08/14/13 RhoGam (APR Charting)1 05/04/09 1Result Comment: LEFT HIP Social History Social History Type Response Substance Abuse 1 Sexual Sexually active: Yes, History of sexual abuse: No, Sex with Your Partner Mutually Satisfying No Exercise 2 Employment/School 3 Alcohol 4 Smoking Status Current every day smoker, Type: Cigarettes, Exposure to Tobacco Smoke None, Cigarette Smoking Last 365 Days Yes, Reg Smoking Cessation Counseling No5 [id number] ppd Assessment and Plan Extracted from: Title: Discharge after C/S Author: Sedrick Mcclelland MD Date: 08/15/13 Impression and Plan Diagnosis: delivery - delivered (ICD9 669.71, Working, Medical). Course: Improving, Progressing as expected, Well controlled. Orders RTC in 2 weeks. Rx Vicodin 5 mg po q 4 hrs PRN pain Motrin 800 mg po TID prn pain Education and Follow-up: Discharge Planning. Counseled: Patient, . Extracted from: Title: POD#1 Author: Sedrick Mcclelland MD Date: 08/14/13 Impression and Plan Diagnosis: delivery only; (ICD9 654.2, Working, Medical). Course: Improving. Orders Routine care POD#1 C/S. 1-Start PO meds, 2-Discontinue ewing catheter and EXCELSIOR MACHINE FEEDER. 3-Ambulate. 4-Hep lock IV. 5-Regular Diet.. Education and Follow-up: Counseled: Patient. Ready for D/C: No. 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 Anesthetic Preoperative Plan Premedication: None. Anesthetic technique: Regional anesthesia, Neuraxial. Maintenance airway: facemask. Regional: Spinal. Postoperative pain management: Patient controlled anesthesia. Risks discussed: nausea, vomiting, headache, hypotension, allergic reaction, serious complications. Informed consent: signed by patient.
--- OUTSIDE RECORDS SUMMARY | 2018-06-26 20:35 | XMS REPORT | Summary of Care ---
:1985 Author Encounter Dates Location Diagnoses Discharge Providers Disposition 04/30/2013 - [facility] Discharge Diagnosis: Bipolar Home Sedrick Mcclelland 04/30/2013 [address] [place], [place] [address]- , [facility] Discharge Diagnosis: Ankle sprain Discharge Diagnosis: Reason for Visit RIGHT FOOT INJURY Vital Signs Most recent to oldest 1 2 3 [Reference Range]: Height 165.1 cm (04/30/2013 13:10:00 [place]) Temperature Oral 97.9 DegF 97.9 DegF 97.6 DegF [96.4-99.1 DegF] (04/30/2013 22:09:00 [place]) (04/30/2013 21:40:00 [place]) (04/30/2013 16:33:00 [place]) Systolic Blood Pressure 114 mmHg 109 mmHg 95 mmHg [90-140 mmHg] (04/30/2013 22:09:00 [place]) (04/30/2013 21:40:00 [place]) (04/30/2013 19:30:00 [place]) Diastolic Blood Pressure 66 mmHg 72 mmHg 55 mmHg [60-90 mmHg] (04/30/2013 22:09:00 [place]) (04/30/2013 21:40:00 [place]) *LOW* (04/30/2013 19:30:00 [place]) Respiratory Rate [14-20 18 BRMIN 18 BRMIN 18 BRMIN BRMIN] (04/30/2013 22:09:00 [place]) (04/30/2013 21:40:00 [place]) (04/30/2013 19:30:00 [facility]) Peripheral Pulse Rate 82 bpm 75 bpm 85 bpm [60-100 bpm] (04/30/2013 22:09:00 [place]) (04/30/2013 21:40:00 [place]) (04/30/2013 19:30:00 [facility]) Weight 52.273 kg (04/30/2013 13:10:00 [facility]) Body Mass Index 19.18 m2 (04/30/2013 13:10:00 [facility]) Problem List Condition Effective Dates Status Health Status Informant Anxiety(Confirmed) Active Bipolar(Confirmed) Active Depression(Confirmed) Active Gastritis(Confirmed) Active Insomnia(Confirmed) Active Intussusception of Resolved intestine(Confirmed) Intussusception of the Active intestine(Confirmed) (Confirmed) 08/10/2008 - 05/03/2009 Resolved (Confirmed) 10/13/2010 - 11/24/2010 Resolved Allergies, Adverse Reactions, Alerts Substance Reaction Severity Status NKDA Active Medications Medication Instructions Start Date Stop Date Status LaMICtal 100 mg, Daily, 0 Refill(s) 04/30/2013 Ordered [place] 5/325 oral tablet 1 tab, PO, Q4-6H, as 04/30/2013 Ordered needed for pain, # 12 tab, 0 Refill(s) [place] 5/325 oral tablet 1 tab, Route: PO, Drug Form: TAB, Dosing Weight 52.273 , kg, ONCE, Start date: 04/30/13 19:22:00, Stop date: 04/30/13 19:22:00 201304/30/2013 Completed (Same as: [place] 325/5) Do not exceed 4gm/day of acetaminophen. Multivitamins with 0 Refill(s) 04/30/2013 Ordered Folic Acid 0.4 mg oral tablet Medications Administered During Your Visit No data available for this section Immunizations Vaccine Date Refusal Reason RhoGam (MAR Charting)1 05/04/2009 1Result Comment: LEFT HIP Procedures Procedure Type Body Site Date of Procedure Related Diagnosis section1 Colonoscopy Diagnostic endoscopy 68435 Social History Social History Type Response Substance Abuse 1 Alcohol 2 Smoking Status Use: Current every day smoker. Type: Cigarettes. Tobacco smoke exposure: None. Did the Patient Smoke Cigarettes Anytime During the Last 365 Days? Yes. Cessation Counseling Provided? No.3 [id number] ppd
--- OUTSIDE RECORDS SUMMARY | 2018-06-26 20:36 | XMS REPORT | Summary of Care ---
:1985 Author Organization [facility] Address [address] [place], [place] [address]- Encounter HQ Bernadette(FIN) [id number] Date(s): 01/03/16 - 01/03/16 [facility] [address] [place] [address]- Discharge Diagnosis: Facial cellulitis Discharge Disposition: Home or Self Care Attending Physician: Jonathan Long MD Vital Signs Most recent to oldest [Reference Range]: 1 2 Height 165.1 cm (01/03/16 7:01 PM) Temperature Oral [96.4-99.1 DegF] 98.5 DegF (01/03/16 7:01 PM) Blood Pressure [90-140/60-90 mmHg] 128/70 mmHg 132/80 mmHg (01/03/16 7:54 PM) (01/03/16 7:01 PM) Respiratory Rate [14-20 BRMIN] 20 BRMIN 20 BRMIN (01/03/16 7:54 PM) (01/03/16 7:01 PM) Peripheral Pulse Rate [60-100 bpm] 86 bpm 98 bpm (01/03/16 7:54 PM) (01/03/16 7:01 PM) Weight 50 kg (01/03/16 7:01 PM) Body Mass Index 18.34 m2 (01/03/16 7:01 PM) Problem List Condition Effective Dates Status [...] Substance Reaction Severity Status NKDA Active Medications Bactrim DS 800 mg- 160 mg oral tablet 1 tab, PO, BID, X 10 day, # 20 tab, 0 Refill(s) Start Date: 01/03/16 Stop Date: 01/13/16 Status: OrderedKeflex 500 mg oral capsule 500 mg=1 cap, PO, QID, X 10 day, # 40 cap, 0 Refill(s) Start Date: 01/03/16 Stop Date: 01/13/16 Status: Ordered Results No data available for this section Immunizations Given and Recorded Vaccine Date Status Refusal Reason RhoGam (MAR Charting) 08/14/13 Given RhoGam (MAR Charting)1 05/04/09 Given 1Result Comment: LEFT HIP Procedures Procedure Date Related Diagnosis Body Site Bone operation1 section2 Colon operation Colonoscopy Diagnostic endoscopy Exploratory laparotomy 1left femor metal [id number] Social History Social History Type Response Substance Abuse 1 Sexual Sexually active: Yes. History of sexual abuse: No. Sex Mutually Satisfying: No. Exercise 2 Employment/School 3 Alcohol 4 Smoking Status Current every day smoker; Type: Cigarettes; Exposure to Tobacco Smoke None; Cigarette Smoking Last 365 Days Yes; Reg Smoking Cessation Counseling No5 [id number] ppd Assessment and Plan No data available for this section
--- OUTSIDE RECORDS SUMMARY | 2018-06-26 20:36 | XMS REPORT | Summary of Care ---
:1985 Author Encounter [facility] Bernadette(SELVIN) [id number] Date(s): 04/26/14 - 04/27/14 [facility] [address] [place] [address]- Discharge Diagnosis: Cervicitis Discharge Diagnosis: Abdominal pain in Discharge Diagnosis: UTI in Discharge Disposition: Home Physician Attending: Nadir Garber MD Vital Signs Most recent to oldest [Reference 1 2 3 Range]: Height 165.1 cm (04/26/14 8:16 PM) Temperature Oral [96.4-99.1 DegF] 99.2 DegF *HI* (04/26/14 8:16 PM) Blood Pressure [90-140/60-90 118/65 mmHg 119/67 mmHg 111/62 mmHg mmHg] (04/27/14 1:24 AM) (04/26/14 10:57 PM) (04/26/14 8:16 PM) Respiratory Rate [14-20 BRMIN] 20 BRMIN (04/26/14 8:16 PM) Peripheral Pulse Rate [60-100 100 bpm 94 bpm 119 bpm bpm] (04/27/14 1:24 AM) (04/26/14 10:57 PM) *HI* (04/26/14 8:16 PM) Weight 50 kg (04/26/14 8:16 PM) Body Mass Index 18.34 m2 (04/26/14 8:16 PM) Problem List Condition Effective Dates Status Health Status Informant Anxiety(Confirmed) Active Bipolar(Confirmed) Active Depression(Confirmed) Active Gastritis(Confirmed) Active Insomnia(Confirmed) Active Intussusception of Resolved intestine(Confirmed) Intussusception of the Active intestine(Confirmed) (Confirmed) 11/22/12 - 08/13/13 Resolved (Confirmed) 08/10/08 - 05/03/09 Resolved (Confirmed) 10/13/10 - 11/24/10 Resolved Allergies, Adverse Reactions, Alerts Substance Reaction Severity Status NKDA Active Medications Augmentin 875 mg oral tablet 875 mg=1 tab, PO, Q12H, # 14 tab, 0 Refill(s) Start Date: 04/27/14 Stop Date: 05/04/14 Status: Orderedazithromycin 1,000 mg, 4 tab, Route: PO, Drug form: TAB, ONCE, Dosing Weight 50, kg, Start date: 04/27/14 1:56:00, Stop date: 04/27/14 1:56:00 Notes: Take 1 hour before or 2 hours after meals.(Same As: Zithromax) Start Date: 04/27/14 Stop Date: 04/27/14 Status: CompletedcefTRIAXone 250 mg, Route: IM, Drug form: PDR/INJ, ONCE, Dosing Weight 50, kg, Priority: STAT, Start date: 04/27/14 1:56:00, Stop date: 04/27/14 1:56:00 Notes: (Same As: Rocephin) Start Date: 04/27/14 Stop Date: 04/27/14 Status: Completedmorphine Sulfate 6 mg, 0.6 mL, Route: IVP, Drug form: SOLN, ONCE, Dosing Weight 50, kg, Priority : STAT, Start date: 04/27/14 1:36:00, Stop date: 04/27/14 1:36:00 Notes: (Same as: MORPhine Sulfate) Start Date: 04/27/14 Stop Date: 04/27/14 Status: CompletedReglan 10 mg, 2 mL, Route: IVP, Drug form: INJ, ONCE, Dosing Weight 50, kg, Priority: STAT, Start date: 04/26/14 23:20:00, Stop date: 04/26/14 23:20:00 Notes: (Same as: Reglan) Start Date: 04/26/14 Stop Date: 04/27/14 Status: CompletedSodium Chloride 0.9% (Bolus) IV 1,000 mL, 1,000 ml/hr, Infuse Over: 1 hr, Route: IV, 1,000, Drug form: INJ, ONCE , Priority: STAT, Dosing Weight 50 kg, Start date: 04/26/14 23:20:00, Duration: 1 doses or times, Stop date: 04/26/14 23:20:00 Start Date: 04/26/14 Stop Date: 04/27/14 Status: CompletedTylenol with Codeine #3 oral tablet 1 tab, PO, Q6H, for pain, # 12 tab, 0 Refill(s) Start Date: 04/27/14 Status: OrderedZofran ODT 8 mg oral tablet, disintegrating 8 mg=1 tab, PO, TID, Nausea and Vomiting, Dissolve tab under tongue, # 15 tab, 0 Refill(s) Special Instructions: Dissolve tab under tongue Start Date: 04/27/14 Status: Ordered Results BLOOD BANK RESULTS Most recent to oldest [Reference Range]: 1 ABO/Rh O NEG *Unknown* (04/26/14 11:46 PM) Antibody Scrn Negative (04/26/14 11:46 PM) ELECTROLYTES Most recent to oldest [Reference Range]: 1 Sodium Lvl [135-145 mEq/L] 138 mEq/L (04/26/14 11:46 PM) Potassium Lvl [3.5-5.1 mEq/L] 3.5 mEq/L (04/26/14 11:46 PM) Chloride Lvl [95-109 mEq/L] 107 mEq/L (04/26/14 11:46 PM) CO2 [24-32 mEq/L] 22 mEq/L *LOW* (04/26/14 11:46 PM) AGAP [10.0-20.0 mEq/L] 12.5 mEq/L (04/26/14 11:46 PM) CHEM PANEL Most recent to oldest [Reference Range]: 1 Creatinine Lvl [0.5-1.4 mg/dL] 0.7 mg/dL (04/26/14 11:46 PM) eGFR 118 mL/min/1.73m2 1 *NA* (04/26/14 11:46 PM) BUN [7-22 mg/dL] 8 mg/dL (04/26/14 11:46 PM) B/C Ratio [6-25] 11 (04/26/14 11:46 PM) Glucose Lvl [70-99 mg/dL] 94 mg/dL 2 (04/26/14 11:46 PM) Total Protein [6.4-8.4 g/dL] 7.5 g/dL (04/26/14 11:46 PM) Albumin Lvl [3.5-5.0 g/dL] 4.1 g/dL (04/26/14 11:46 PM) Globulin [2.0-4.0 g/dL] 3.4 g/dL (04/26/14 11:46 PM) A/G Ratio [0.7-1.6] 1.2 (04/26/14 11:46 PM) Calcium Lvl [8.5-10.5 mg/dL] 8.9 mg/dL (04/26/14 11:46 PM) ALT [0-65 unit/L] 12 unit/L (04/26/14 11:46 PM) AST [0-37 unit/L] 10 unit/L (04/26/14 11:46 PM) Alk Phos [39-136 unit/L] 90 unit/L (04/26/14 11:46 PM) Bili Total [0.2-1.3 mg/dL] 0.4 mg/dL (04/26/14 11:46 PM) 1Result Comment: The eGFR is calculated [...] values reflect the clinical guidelines of the [place] [employer].ENDOCRINOLOGY Most recent to oldest [Reference Range]: 1 hCG Tot 9 mIU/mL 3 *NA* (04/26/14 11:46 PM) 3Interpretive Data: Reference Range: Male 0 - [...] 17 8,175 - 55,868 18 8,099 - 58,176URINE CHEM Most recent to oldest [Reference Range]: 1 U Preg [Negative] Positive *ABN* (04/26/14 10:57 PM) URINE AND STOOL Most recent to oldest [Reference Range]: 1 UA Turbidity [Clear] Slight Cloudy (04/26/14 10:57 PM) UA Color [Yellow] Yellow *NA* (04/26/14 10:57 PM) UA pH [5.0-8.0] 7.0 (04/26/14 10:57 PM) UA Spec Grav [<=1.030] 1.015 (04/26/14 10:57 PM) UA Glucose [Negative] Negative (04/26/14 10:57 PM) UA Blood [Negative] Large *ABN* (04/26/14 10:57 PM) UA Ketones [Negative mg/dL] 15 mg/dL *ABN* (04/26/14 10:57 PM) UA Protein [Negative mg/dL] 100 mg/dL *ABN* (04/26/14 10:57 PM) UA Urobilinogen [0.1-1.0 EU/dL] 1.0 EU/dL (04/26/14 10:57 PM) UA Bili [Negative] Small *ABN* (04/26/14 10:57 PM) UA Leuk Est [Negative] Trace *ABN* (04/26/14 10:57 PM) UA Nitrite [Negative] Negative (04/26/14 10:57 PM) UA WBC [None Seen /HPF] 0-2 /HPF (04/26/14 10:57 PM) UA RBC [0-2 /HPF] 21-50 /HPF *ABN* (04/26/14 10:57 PM) UA Bacteria [None Seen /HPF] Few /HPF (04/26/14 10:57 PM) UA Sq Epi [Few /LPF] Few /LPF (04/26/14 10:57 PM) UA Mucus [None Seen /LPF] Few /LPF (04/26/14 10:57 PM) Micro? Performed (04/26/14 10:57 PM) HEMATOLOGY Most recent to oldest [Reference Range]: 1 WBC [3.7-10.4 K/CMM] 20.6 K/CMM *HI* (04/26/14 11:46 PM) RBC [4.20-5.40 M/CMM] 4.65 M/CMM (04/26/14 11:46 PM) Hgb [12.0-16.0 g/dL] 13.4 g/dL (04/26/14 11:46 PM) Hct [36.0-48.0 %] 40.2 % (04/26/14 11:46 PM) MCV [80.0-98.0 fL] 86.4 fL (04/26/14 11:46 PM) MCH [27.0-31.0 pg] 28.8 pg (04/26/14 11:46 PM) MCHC [32.0-36.0 g/dL] 33.3 g/dL (04/26/14 11:46 PM) RDW [11.5-14.5 %] 14.9 % *HI* (04/26/14 11:46 PM) Platelet [133-450 K/CMM] 309 K/CMM (04/26/14 11:46 PM) MPV [7.4-10.4 fL] 7.9 fL (04/26/14 11:46 PM) Segs [45.0-75.0 %] 89.3 % *HI* (04/26/14 11:46 PM) Lymphocytes [20.0-40.0 %] 6.6 % *LOW* (04/26/14 11:46 PM) Monocytes [2.0-12.0 %] 3.7 % (04/26/14 11:46 PM) Eosinophils [0.0-4.0 %] 0.1 % (04/26/14 11:46 PM) Basophils [0.0-1.0 %] 0.3 % (04/26/14 11:46 PM) Segs-Bands # [1.5-8.1 K/CMM] 18.4 K/CMM *HI* (04/26/14 11:46 PM) Lymphocytes # [1.0-5.5 K/CMM] 1.4 K/CMM (04/26/14 11:46 PM) Monocytes # [0.0-0.8 K/CMM] 0.8 K/CMM (04/26/14 11:46 PM) Basophils # [0.0-0.2 K/CMM] 0.1 K/CMM (04/26/14 11:46 PM) MOLECULAR DIAGNOSTIC Most recent to oldest [Reference Range]: 1 Source APTIMA Vaginal *NA* (04/27/14 1:56 AM) N gonorrhea by Amp Det (APTIMA) [Negative] Negative 4 *NA* (04/27/14 1:56 AM) C trachomatis by Amp Det (APTIMA) [Negative] Negative 5 *NA* (04/27/14 1:56 AM) 4Interpretive Data: The APTIMA assay is a target amplification nucleic acid probe test utilizing target capture for the qualitative detection and differentiation of ribosomal RNA from Neisseria gonorrhoeae to aid in the diagnosis of disease from symptomatic and asymptomatic individuals using the PANTHER System. This assay utilizes FDA cleared IVD reagents. Performance characteristics have been verified by the [facility] within [facility]. The [facility] Laboratory is authorized under the Clinical Laboratory Improvement Amendments of 1988 (CLIA-88) to perform high complexity testing.5Interpretive Data: The APTIMA assay is a target amplification nucleic acid probe test utilizing target capture for the qualitative detection and differentiation of ribosomal RNA from Chlamydia trachomatis to aid in the diagnosis of disease from symptomatic and asymptomatic individuals using the PANTHER System. This assay utilizes FDA cleared IVD reagents. Performance characteristics have been verified by the [facility] within [facility]. The [facility] is authorized under the Clinical Laboratory Improvement Amendments of 1988 (CLIA-88) to perform high complexity testing.VIRAL - SEROLOGY Most recent to oldest [Reference Range]: 1 Influ A [Negative] Negative (04/26/14 10:57 PM) Influ B [Negative] Negative 6 (04/26/14 10:57 PM) 6Interpretive Data: Influenza A&B Antigen: Due to the low sensitivity of this test a negative result does not exclude influenza virus infection. A diagnosis of influenza should be considered based on a patient's clinical presentation and empiric antiviral treatment should be considered, if indicated. If more conclusive testing is desired, follow-up confirmatory testing with either viral culture or PCR is warranted. Immunizations Vaccine Date Refusal Reason RhoGam (MAR Charting) 08/14/13 RhoGam (MAR Charting)1 05/04/09 1Result Comment: LEFT HIP Procedures No data available for this section Social History Social History Type Response Substance Abuse 1 Sexual Sexually active: Yes. History of sexual abuse: No. Sex Mutually Satisfying: No. Exercise 2 Employment/School 3 Alcohol 4 Smoking Status Current every day smoker; Type: Cigarettes; Exposure to Tobacco Smoke None; Cigarette Smoking Last 365 Days Yes; Reg Smoking Cessation Counseling No5 [id number] ppd Assessment and Plan No data available for this section
--- OUTSIDE RECORDS SUMMARY | 2018-06-26 20:36 | XMS REPORT | Summary of Care ---
:1985 Author Encounter NATHALY Fleming(SELVIN) [id number] Date(s): 05/06/14 - 05/06/14 [facility] [address] [place] [address]- [phone] Discharge Diagnosis: Acute lumbar back pain Discharge Disposition: Home Physician Attending: Mike Caal MD Vital Signs Most recent to oldest 1 2 3 [Reference Range]: Height 165.1 cm (05/06/14 11:59 AM) Temperature Oral [96.4-99.1 96.5 DegF DegF] (05/06/14 11:59 AM) Blood Pressure [90-140/60-90 116/73 mmHg 103/64 mmHg 112/75 mmHg mmHg] (05/06/14 2:22 PM) (05/06/14 1:59 PM) (05/06/14 1:18 PM) Respiratory Rate [14-20 BRMIN] 16 BRMIN 16 BRMIN 18 BRMIN (05/06/14 2:22 PM) (05/06/14 1:59 PM) (05/06/14 1:18 PM) Peripheral Pulse Rate [60-100 66 bpm 80 bpm 79 bpm bpm] (05/06/14 2:22 PM) (05/06/14 1:59 PM) (05/06/14 1:18 PM) Weight 50.909 kg (05/06/14 11:59 AM) Body Mass Index 18.68 m2 (05/06/14 11:59 AM) Problem List Condition Effective Dates Status Health Status Informant Anxiety(Confirmed) Active Bipolar(Confirmed) Active Depression(Confirmed) Active Gastritis(Confirmed) Active Insomnia(Confirmed) Active Intussusception of Resolved intestine(Confirmed) Intussusception of the Active intestine(Confirmed) (Confirmed) 11/22/12 - 08/13/13 Resolved (Confirmed) 08/10/08 - 05/03/09 Resolved (Confirmed) 10/13/10 - 11/24/10 Resolved Allergies, Adverse Reactions, Alerts Substance Reaction Severity Status NKDA Active Medications acetaminophen 1,000 mg, 2 tab, Route: PO, Drug form: TAB, ONCE, Dosing Weight 50.909, kg, Priority: STAT, Start date: 05/06/14 12:52:00, Stop date: 05/06/14 12:52:00 Notes: Max acetaminophen 4000 mg/day (4 gm/day). (Same as: Tylenol Extra Strength) Start Date: 05/06/14 Stop Date: 05/06/14 Status: Completedacetaminophen-hydrocodone 325 mg-5 mg oral tablet 1 tab, Route: PO, Dosing Weight 50.909, kg, ONCE, STAT, Start date: 05/06/14 14: 00:00, Stop date: 05/06/14 14:00:00 Start Date: 05/06/14 Stop Date: 05/06/14 Status: Completedmorphine Sulfate 4 mg, 1 mL, Route: IVP, Drug form: INJ, ONCE, Dosing Weight 50.909, kg, Priority : STAT, Start date: 05/06/14 12:52:00, Stop date: 05/06/14 12:52:00 Notes: (Same as:MORPhine Sulfate) Start Date: 05/06/14 Stop Date: 05/06/14 Status: Completedondansetron 4 mg, 2 mL, Route: IVP, Drug form: INJ, ONCE, Dosing Weight 50.909, kg, Priority : STAT, Start date: 05/06/14 12:52:00, Stop date: 05/06/14 12:52:00 Notes: (Same as: Zofran) Start Date: 05/06/14 Stop Date: 05/06/14 Status: CompletedSodium Chloride 0.9% (Bolus) IV 1,000 mL, 1000 ml/hr, Infuse Over: 1 hr, Route: IV, 1,000, Drug form: INJ, ONCE , Priority: STAT, Dosing Weight 50.909 kg, Start date: 05/06/14 13:07:00, Duration: 1 doses or times, Stop date: 05/06/14 13:07:00 Start Date: 05/06/14 Stop Date: 05/06/14 Status: CompletedSodium Chloride 0.9% (Bolus) IV 1,000 mL, 1000 ml/hr, Infuse Over: 1 hr, Route: IV, 1,000, Drug form: INJ, ONCE , Priority: STAT, Dosing Weight 50.909 kg, Start date: 05/06/14 13:07:00, Duration: 1 doses or times, Stop date: 05/06/14 13:07:00 Start Date: 05/06/14 Stop Date: 05/06/14 Status: Completed Results BLOOD BANK RESULTS Most recent to oldest [Reference Range]: 1 ABO/Rh O NEG *Unknown* (05/06/14 1:04 PM) ELECTROLYTES Most recent to oldest [Reference Range]: 1 Sodium Lvl [135-145 mEq/L] 134 mEq/L *LOW* (05/06/14 1:04 PM) Potassium Lvl [3.5-5.1 mEq/L] 3.8 mEq/L (05/06/14 1:04 PM) Chloride Lvl [95-109 mEq/L] 100 mEq/L (05/06/14 1:04 PM) CO2 [24-32 mEq/L] 28 mEq/L (05/06/14 1:04 PM) AGAP [10.0-20.0 mEq/L] 9.8 mEq/L *LOW* (05/06/14 1:04 PM) CHEM PANEL Most recent to [Reference Range]: 1 Creatinine Lvl [0.5-1.4 mg/dL] 0.7 mg/dL (05/06/14 1:04 PM) eGFR 118 mL/min/1.73m2 1 *NA* (05/06/14 1:04 PM) BUN [7-22 mg/dL] 9 mg/dL (05/06/14 1:04 PM) B/C Ratio [6-25] 13 (05/06/14 1:04 PM) Glucose Lvl [70-99 mg/dL] 85 mg/dL 2 (05/06/14 1:04 PM) Total Protein [6.4-8.4 g/dL] 8.1 g/dL (05/06/14 1:04 PM) Albumin Lvl [3.5-5.0 g/dL] 4.3 g/dL (05/06/14 1:04 PM) Globulin [2.0-4.0 g/dL] 3.8 g/dL (05/06/14 1:04 PM) A/G Ratio [0.7-1.6] 1.1 (05/06/14 1:04 PM) Calcium Lvl [8.5-10.5 mg/dL] 10.0 mg/dL (05/06/14 1:04 PM) ALT [0-65 unit/L] 17 unit/L (05/06/14 1:04 PM) AST [0-37 unit/L] 17 unit/L (05/06/14 1:04 PM) Alk Phos [39-136 unit/L] 97 unit/L (05/06/14 1:04 PM) Bili Total [0.2-1.3 mg/dL] 0.3 mg/dL (05/06/14 1:04 PM) 1Result Comment: The eGFR is calculated [...] values reflect the clinical guidelines of the [place] [employer].ENDOCRINOLOGY Most recent to oldest [Reference Range]: 1 hCG Tot 38 mIU/mL 3 *NA* (05/06/14 1:04 PM) 3Interpretive Data: Reference Range: Male 0 [...] oldest [Reference Range]: 1 WBC [3.7-10.4 K/CMM] 8.4 K/CMM (05/06/14 1:04 PM) RBC [4.20-5.40 M/CMM] 5.16 M/CMM (05/06/14 1:04 PM) Hgb [12.0-16.0 g/dL] 14.9 g/dL (05/06/14 1:04 PM) Hct [36.0-48.0 %] 44.6 % (05/06/14 1:04 PM) MCV [80.0-98.0 fL] 86.4 fL (05/06/14 1:04 PM) MCH [27.0-31.0 pg] 28.8 pg (05/06/14 1:04 PM) MCHC [32.0-36.0 g/dL] 33.3 g/dL (05/06/14 1:04 PM) RDW [11.5-14.5 %] 15.3 % *HI* (05/06/14 1:04 PM) Platelet [133-450 K/CMM] 426 K/CMM (05/06/14 1:04 PM) MPV [7.4-10.4 fL] 7.6 fL (05/06/14 1:04 PM) Segs [45.0-75.0 %] 55.9 % (05/06/14 1:04 PM) Lymphocytes [20.0-40.0 %] 32.8 % (05/06/14 1:04 PM) Monocytes [2.0-12.0 %] 9.1 % (05/06/14 1:04 PM) Eosinophils [0.0-4.0 %] 1.5 % (05/06/14 1:04 PM) Basophils [0.0-1.0 %] 0.7 % (05/06/14 1:04 PM) Segs-Bands # [1.5-8.1 K/CMM] 4.7 K/CMM (05/06/14 1:04 PM) Lymphocytes # [1.0-5.5 K/CMM] 2.7 K/CMM (05/06/14 1:04 PM) Monocytes # [0.0-0.8 K/CMM] 0.8 K/CMM (05/06/14 1:04 PM) Eosinophils # [0.0-0.5 K/CMM] 0.1 K/CMM (05/06/14 1:04 PM) Basophils # [0.0-0.2 K/CMM] 0.1 K/CMM (05/06/14 1:04 PM) Immunizations Vaccine Date Refusal Reason RhoGam (MAR [...] Days Yes; Reg Smoking Cessation Counseling No5 [id number] ppd Assessment and Plan No data available for this section
[2018-06-26 20:44] LABS: Absolute Lymphocytes (CBC) 2.8 K/uL (0.7-4.9); Absolute Monocytes 0.9 K/uL (0.1-1.3); Absolute Neutrophil 12.7 K/uL (1.8-8.0); Basophils % 0.5 % (0-1.3); Eosinophils % 1.4 % (0-4.4); Hematocrit 40.3 % (36.0-45.0); Lymphocytes % 16.5 % (15.3-44.8); MPV 7.7 fL (7.6-11.3); Monocytes % 5.6 % (3.3-12.3)
[2018-06-26 20:53] LABS: Protime INR 0.92
[2018-06-26 21:03] LABS: ALT/SGPT 24 U/L (12-78); AST/SGOT 16 U/L (15-37); Albumin 3.9 g/dL (3.4-5.0); Alkaline Phosphatase 94 U/L (45-117); BUN Blood Urea Nitrogen 8 mg/dL (7-18); Bicarbonate 26 mmol/L (21-32); Bilirubin Direct < 0.1 mg/dL (0-0.2); Bilirubin Total 0.2 mg/dL (0.2-1.0); Glucose Level 96 mg/dL (74-106); Potassium 3.8 mmol/L (3.5-5.1); Protein, Total 7.8 g/dL (6.4-8.2); Sodium Level 140 mmol/L (136-145)
[2018-06-26] MEDS ORDERED: NA CHLORIDE 0.9% 1,000 ML ONE ×2 (21:16→22:44)
[2018-06-26] MEDS ORDERED: ONDANSETRON 4 MG/2 ML VIAL ONE ×2 (21:28→22:21)
--- NOTE | 2018-06-26 22:29 | ER ---
Nurse's Notes [facility] Name: Emily Eller Age: 32 yrs Sex: Female : 1985 Arrival Date: 06/26/2018 Time: 20:18 Bed 6 Private MD: Diagnosis: Vomiting-intractable;Allergy status to narcotic agent status-Naltrexone;Malaise and fatigue;Elevated white blood cell count Presentation: 06/26 20:18 Presenting complaint: EMS states: "[facility] pt was medicated with a new medication called naltrexone 50 mg. it was taken at 1700 and she started having symptoms of leg pain, skin burning, cold flashes, and diaphoresis.". Transition of care: patient was received from another setting of care (rehabilitation facility). Onset of symptoms was June 26, 2018. Risk Assessment: Do you want to hurt yourself or someone else? Patient reports no desire to harm self or others. Initial Sepsis Screen: Does the patient meet any 2 criteria? No. Patient's initial sepsis screen is negative. Does the patient have a suspected source of infection? No. Patient's initial sepsis screen is negative. Care prior to arrival: None. 20:18 Method Of Arrival: EMS: [facility] jd3 20:18 Acuity: ANGI 3 jd3 DONATIONS ATTENDANT: 06/27 00:29 LMP N/A - Irregular menses jd3 Historical: - Allergies: 06/26 20:28 No Known Allergies; jd3 - Home Meds: 20:28 escitalopram oxalate oral oral [Active]; jd3 - PMHx: 20:28 None; jd3 - PSHx: 20:28 ; abdominal sx; tubal preg; left leg; jd3 - Immunization history:: Adult Immunizations up to date. - Social history:: Smoking status: Patient uses tobacco products, smokes one pack cigarettes per day. - Ebola Screening: : Patient negative for fever greater than or equal to 101.5 degrees Fahrenheit, and additional compatible Ebola Virus Disease symptoms. - Family history:: not pertinent. Screenin:31 Abuse screen: Denies threats or abuse. Nutritional screening: No deficits noted. jd3 Tuberculosis screening: No symptoms or risk factors identified. Fall Risk Ambulatory Aid- None/Bed Rest/Nurse Assist (0 pts). Gait- Weak (10 pts.). Mental Status- Oriented to own ability (0 pts). Total Martínez Fall Scale indicates No Risk (0-24 pts). Assessment: 20:32 General: Appears uncomfortable, Behavior is cooperative, anxious, restless. Pain: jd3 Denies pain. Neuro: Level of Consciousness is awake, alert, obeys commands, Oriented to person, place, time, situation, Appropriate for age. Cardiovascular: Heart tones present Capillary refill. Respiratory: Airway is patent Respiratory effort is even, unlabored, Respiratory pattern is regular, symmetrical, Breath sounds are clear bilaterally. GI: No signs and/or symptoms were reported involving the gastrointestinal system. : No signs and/or symptoms were reported regarding the genitourinary system. EENT: No signs and/or symptoms were reported regarding the EENT system. Derm: Skin is intact, Skin is diaphoretic, Skin is pale, Skin temperature is warm. Musculoskeletal: Circulation, motion, and sensation intact. Range of motion: intact in all extremities. 21:43 Reassessment: No changes from previously documented assessment. Patient and/or family jd3 updated on plan of care and expected duration. Pain level reassessed. Patient is alert, oriented x 3, equal unlabored respirations, skin warm/dry/pink. 23:18 Reassessment: Patient appears in no apparent distress at this time. Patient and/or jd3 family updated on plan of care and expected duration. Pain level reassessed. Patient is alert, oriented x 3, equal unlabored respirations, skin warm/dry/pink. 06/27 00:31 Reassessment: Patient appears in no apparent distress at this time. Patient and/or jd3 family updated on plan of care and expected duration. Pain level reassessed. Patient is alert, oriented x 3, equal unlabored respirations, skin warm/dry/pink. Vital Signs: 06/26 20:28 BP 125 / 91; Pulse 74; Resp 17 S; Temp 98.3(O); Pulse Ox 100% on R/A; Weight 45.36 kg jd3 (R); Height 5 ft. 5 in. (165.10 cm) (R); Pain 0/10; 21:43 BP 125 / 84; Pulse 62; Resp 17 S; Pulse Ox 100% on R/A; jd3 23:18 BP 126 / 57; Pulse 72; Resp 18 S; Pulse Ox 100% on R/A; [facility] 06/27 00:29 BP 122 / 72; Pulse 65; Resp 17 S; Pulse Ox 100% on R/A; d3 06/26 20:28 Body Mass Index 16.64 (45.36 kg, 165.10 cm) [facility] ED Course: 06/26 20:18 Patient arrived in ED. jd3 20:23 Triage completed. jd3 20:29 Arm band placed on. jd3 20:30 Emil Ann MD is Attending Physician. [facility] 20:31 Patient has correct armband on for positive identification. Bed in low position. Call j light in reach. Side rails up X2. Adult w/ patient. 20:45 Giuseppe Arthur RN is Primary Nurse. j 21:02 Inserted saline lock: 20 gauge in left forearm, using aseptic technique. Blood oe collected. 21:26 Chest Single View XRAY In Process Unspecified. EDIL 22:26 Omid Ivy MD is Hospitalizing Provider. [facility] 06/27 00:25 No provider procedures requiring assistance completed. Patient admitted, IV remains in jd3 place. Administered Medications: 06/26 21:11 Drug: NS 0.9% 1000 ml Route: IV; Rate: 1 bolus; Site: left forearm; jd3 22:40 Follow up: Response: No adverse reaction; IV Status: Completed infusion; IV Intake: jd3 1000ml 21:21 Drug: Zofran 4 mg Route: IVP; Site: left forearm; jd3 22:20 Follow up: Response: No adverse reaction j 22:21 Drug: Zofran 4 mg Route: IVP; Infused Over: 2 mins; Site: left forearm; tl1 22:40 Follow up: Response: No adverse reaction j 22:38 Drug: NS 0.9% 1000 ml Route: IV; Rate: 125 ml/hr; Site: left forearm; j 06/27 00:19 Follow up: Response: No adverse reaction; IV Status: Infusion continued upon admission [facility] 06/26 22:39 Drug: Rocephin - (cefTRIAXone) 1 grams Route: IVPB; Infused Over: 30 mins; Site: left jd3 forearm; 23:30 Follow up: Response: No adverse reaction; IV Status: Completed infusion [facility] 06/27 00:18 Drug: Zofran 4 mg Route: IVP; Site: left forearm; jd3 00:25 Follow up: Response: No adverse reaction jd3 Intake: 06/26 22:40 IV: 1000ml; Total: 1000ml. jd3 Outcome: 22:29 Decision to Hospitalize by Provider. soha 06/27 00:26 Admitted to Med/surg accompanied by tech, via stretcher, room 228, with chart, Report jjack called to Simona ARROYO Condition: stable Instructed on the need for admit, Demonstrated understanding of instructions. 00:38 Patient left the ED. jjack Signatures: Dispatcher [employer] EDEmil Campbell MD MD cha Lasagna, Tonya, RN RN tl1 Matthew Hanson Jonathon, RN RN jd3 Corrections: (The following items were deleted from the chart) 00:38 00:26 Discharged to home ambulatory, jjack jjack
--- NOTE | 2018-06-26 22:29 | EDPHYS ---
Physician Documentation [facility] Name: Emily Eller Age: 32 yrs Sex: Female : 1985 Arrival Date: 06/26/2018 Time: 20:18 Bed 6 Private MD: ED Physician Emil Ann HPI: 06/26 20:57 This 32 yrs old Female presents to ER via EMS with complaints of drug effect. soha 20:57 in drug rehab, took medicine and reacted. Onset: The symptoms/episode began/occurred soha just prior to arrival, today. Severity of symptoms: At their worst the symptoms were mild in the emergency department the symptoms are unchanged. The patient has not experienced similar symptoms in the past. 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 - Social history:: Smoking status: Patient uses tobacco products, smokes one pack cigarettes per day. - Ebola Screening: : Patient negative for fever greater than or equal to 101.5 degrees Fahrenheit, and additional compatible Ebola Virus Disease symptoms. - Family history:: not pertinent. ROS: 20:57 Constitutional: Negative for fever, chills, and weight loss, Eyes: Negative for injury, soha pain, redness, and discharge, ENT: Negative for injury, pain, and discharge, Neck: Negative for injury, pain, and swelling, Cardiovascular: Negative for chest pain, palpitations, and edema, Respiratory: Negative for shortness of breath, cough, wheezing, and pleuritic chest pain, Abdomen/GI: Negative for abdominal pain, nausea, vomiting, diarrhea, and constipation, Back: Negative for injury and pain, : Negative for injury, bleeding, discharge, and swelling, MS/Extremity: Negative for injury and deformity, Neuro: Negative for headache, weakness, numbness, tingling, and seizure, Psych: Negative for depression, anxiety, suicide ideation, homicidal ideation, and hallucinations, Allergy/Immunology: Negative for hives, rash, and allergies, Endocrine: Negative for neck swelling, polydipsia, polyuria, polyphagia, and marked weight changes, Hematologic/Lymphatic: Negative for swollen nodes, abnormal bleeding, and unusual bruising. 20:57 Skin: Positive for diaphoresis, pallor. Exam: 20:57 Constitutional: This is a well developed, well nourished patient who is awake, alert, soha and in no acute distress. Head/Face: Normocephalic, atraumatic. Eyes: Pupils equal round and reactive to light, extra-ocular motions intact. Lids and lashes normal. Conjunctiva and sclera are non-icteric and not injected. Cornea within normal limits. Periorbital areas with no swelling, redness, or edema. ENT: Nares patent. No nasal discharge, no septal abnormalities noted. Tympanic membranes are normal and external auditory canals are clear. Oropharynx with no redness, swelling, or masses, exudates, or evidence of obstruction, uvula midline. Mucous membranes moist. Neck: Trachea midline, no thyromegaly or masses palpated, and no cervical lymphadenopathy. Supple, full range of motion without nuchal rigidity, or vertebral point tenderness. No Meningismus. Chest/axilla: Normal chest wall appearance and motion. Nontender with no deformity. No lesions are appreciated. Cardiovascular: Regular rate and rhythm with a normal S1 and S2. No gallops, murmurs, or rubs. Normal PMI, no JVD. No pulse deficits. Respiratory: Lungs have equal breath sounds bilaterally, clear to auscultation and percussion. No rales, rhonchi or wheezes noted. No increased work of breathing, no retractions or nasal flaring. Abdomen/GI: Soft, non-tender, with normal bowel sounds. No distension or tympany. No guarding or rebound. No evidence of tenderness throughout. Back: No spinal tenderness. No costovertebral tenderness. Full range of motion. MS/ Extremity: Pulses equal, no cyanosis. Neurovascular intact. Full, normal range of motion. Neuro: Awake and alert, GCS 15, oriented to person, place, time, and situation. Cranial nerves II-XII grossly intact. Motor strength 5/5 in all extremities. Sensory grossly intact. Cerebellar exam normal. Normal gait. 20:57 Skin: Appearance: Color: pale, Temperature: warm, Moisture: petechiae, not noted, ecchymosis, not noted, diaphoresis is noted. Vital Signs: 20:28 BP 125 / 91; Pulse 74; Resp 17 S; Temp 98.3(O); Pulse Ox 100% on R/A; Weight 45.36 kg [facility] (R); Height 5 ft. 5 in. (165.10 cm) (R); Pain 0/10; 21:43 BP 125 / 84; Pulse 62; Resp 17 S; Pulse Ox 100% on R/A; d3 23:18 BP 126 / 57; Pulse 72; Resp 18 S; Pulse Ox 100% on R/A; [facility] 06/27 00:29 BP 122 / 72; Pulse 65; Resp 17 S; Pulse Ox 100% on R/A; [facility] 06/26 20:28 Body Mass Index 16.64 (45.36 kg, 165.10 cm) [facility] MDM: 06/26 20:30 Patient medically screened. [facility] 21:08 Data reviewed: vital signs, nurses notes, lab test result(s), EKG, radiologic studies, [facility] plain films. 06/26 20:25 Order name: Acetaminophen; Complete Time: 21:57 [facility] 06/26 20:25 Order name: Basic Metabolic Panel; Complete Time: 21:57 [facility] 06/26 20:25 Order name: CBC with Diff; Complete Time: 20:54 [facility] 06/26 20:25 Order name: ETOH Level; Complete Time: 21:57 [facility] 06/26 20:25 Order name: Hepatic Function; Complete Time: 21:57 [facility] 06/26 20:25 Order name: PT-INR; Complete Time: 21:57 [facility] 06/26 20:25 Order name: Ptt, Activated; Complete Time: 21:57 [facility] 06/26 20:25 Order name: Salicylate; Complete Time: 21:57 [facility] 06/26 20:25 Order name: Urine Drug Screen [facility] 06/26 20:56 Order name: Blood Culture Adult (2) [facility] 06/26 20:56 Order name: Procalcitonin; Complete Time: 21:57 [facility] 06/26 22:24 Order name: Flu; Complete Time: 00:33 [facility] 06/26 23:16 Order name: Basic Metabolic Panel [facility] 06/26 23:16 Order name: Basic Metabolic Panel [facility] 06/26 20:25 Order name: Urine Test (obtain specimen); Complete Time: 00:24 jd3 06/26 20:25 Order name: EKG; Complete Time: 20:26 jd3 06/26 20:25 Order name: EKG - Nurse/Tech; Complete Time: 20:46 jd3 06/26 20:25 Order name: IV Saline Lock; Complete Time: 20:46 d3 06/26 20:25 Order name: Labs collected and sent; Complete Time: 20:46 d3 06/26 20:25 Order name: Urine Dipstick-Ancillary (obtain specimen); Complete Time: 00:24 jd3 06/26 20:56 Order name: Chest Single View XRAY [facility] 06/26 23:16 Order name: Clear Liquid EDMS 06/26 23:16 Order name: CBC with Automated Diff EDMS 06/26 23:16 Order name: CBC with Automated Diff EDMS 06/26 21:57 Order name: PO challenge; Complete Time: 22:02 [facility] Administered Medications: 21:11 Drug: NS 0.9% 1000 ml Route: IV; Rate: 1 bolus; Site: left forearm; jd3 22:40 Follow up: Response: No adverse reaction; IV Status: Completed infusion; IV Intake: jd3 1000ml 21:21 Drug: Zofran 4 mg Route: IVP; Site: left forearm; jd3 22:20 Follow up: Response: No adverse reaction jd3 22:21 Drug: Zofran 4 mg Route: IVP; Infused Over: 2 mins; Site: left forearm; tl1 22:40 Follow up: Response: No adverse reaction jd3 22:38 Drug: NS 0.9% 1000 ml Route: IV; Rate: 125 ml/hr; Site: left forearm; jd3 06/27 00:19 Follow up: Response: No adverse reaction; IV Status: Infusion continued upon admission j 06/26 22:39 Drug: Rocephin - (cefTRIAXone) 1 grams Route: IVPB; Infused Over: 30 mins; Site: left jd3 forearm; 23:30 Follow up: Response: No adverse reaction; IV Status: Completed infusion j 06/27 00:18 Drug: Zofran 4 mg Route: IVP; Site: left forearm; jd3 00:25 Follow up: Response: No adverse reaction j Disposition: 06/26/18 22:29 Hospitalization ordered by Omid Ivy for Observation. Preliminary diagnosis are Vomiting - intractable, Allergy status to narcotic agent status - Naltrexone, Malaise and fatigue, Elevated white blood cell count. - Bed requested for Telemetry/MedSurg (observation). - Status is Observation. jd3 - Condition is Stable. - Problem is new. - Symptoms have improved. UTI on Admission? No Signatures: Dispatcher [employer] EDEmil Campbell MD MD cha Lasagna, Tonya RN RN tl1 Carmen Johnson RN RN cg Giuseppe Arthur RN RN jd3 Corrections: (The following items were deleted from the chart) 06/26 22:29 22:29 Hospitalization Ordered by Omid Ivy MD for Observation. Preliminary [facility] diagnosis is Vomiting; Allergy status to narcotic agent status - Naltrexone; Malaise and fatigue; Elevated white blood cell count. Bed requested for Telemetry/MedSurg (observation). Status is Observation. Condition is Stable. Problem is new. Symptoms have improved. UTI on Admission? No. soha 23:39 22:29 06/26/2018 22:29 Hospitalization Ordered by Omid Ivy MD for Observation. Preliminary diagnosis is Vomiting - intractable; Allergy status to narcotic agent status - Naltrexone; Malaise and fatigue; Elevated white blood cell count. Bed requested for Telemetry/MedSurg (observation). Status is Observation. Condition is Stable. Problem is new. Symptoms have improved. UTI on Admission? No. soha 06/27 00:38 06/26 23:39 06/26/2018 22:29 Hospitalization Ordered by Omid Ivy MD for jd3 Observation. Preliminary diagnosis is Vomiting - intractable; Allergy status to narcotic agent status - Naltrexone; Malaise and fatigue; Elevated white blood cell count. Bed requested for Telemetry/MedSurg (observation). Status is Observation. Condition is Stable. Problem is new. Symptoms have improved. UTI on Admission? No.
[2018-06-26] MEDS ORDERED: CEFTRIAXONE/SWI 1gm 1 GM/10 ML SYR ONE (22:44)
[2018-06-26] MEDS ORDERED: ONDANSETRON 4 MG/2 ML VIAL IV PRN (23:14)
--- NOTE | 2018-06-26 23:33 | P.HP ---
Certification for Inpatient Patient admitted to: Observation With expected LOS: <2 Midnights Practitioner: I am a practitioner with admitting privileges, knowledge of patient current condition, hospital course, and medical plan of care. Services: Services provided to patient in accordance with Admission requirements found in Title 42 Section 412.3 of the Code of Federal Regulations Patient History Date of Service: 06/26/18 Reason for admission: opioid withdrawal History of Present Illness: Ms Eller is a 32 years old woman with history opioid abuse, who has been on treatment with Suboxone for about 6 days, she was started this afternoon with Naltrexone. Then she start complaining of diffuse abdominal pain, described as cramps, associated with cold sweat, nausea and vomiting. No history of diarrhea. The patient is under opioid rehab program at [facility]. At arrival she was still symptomatic, afebrile, with stable vital signs. Home medications list reviewed: Yes - Past Medical/Surgical History -: depression -: opioid abuse -: -: ectopic -: left leg surgery - Family History Family History: Reviewed- Non-Contributory - Social History Smoking Status: Current every day smoker Counseled patient to stop smoking for: less than 10 minutes Smoking therapy provided: Yes Patient receptive to therapy: Yes Review of Systems 10-point ROS is otherwise unremarkable Physical Examination - Physical Exam General: Alert, Mild distress (abdominal pain, N/V) HEENT: Atraumatic, PERRLA, Mucous membr. moist/pink, EOMI, Sclerae nonicteric Neck: Supple, 2+ carotid pulse no bruit, No LAD, Without JVD or thyroid abnormality Respiratory: Clear to auscultation bilaterally, Normal air movement Cardiovascular: Regular rate/rhythm, Normal S1 S2 Gastrointestinal: Normal bowel sounds, Tenderness (diffuse) Musculoskeletal: No tenderness Integumentary: No rashes Neurological: Normal speech, Normal strength at 5/5 x4 extr, Normal tone, Normal affect Lymphatics: No axilla or inguinal lymphadenopathy - Studies Laboratory Data (last 24 hrs) 06/26/18 20:26: PT 10.9, INR 0.92, APTT 29.0 06/26/18 20:26: WBC 16.7 H, Hgb 13.1, Hct 40.3, Plt Count 430 H 06/26/18 20:26: Sodium 140, Potassium 3.8, BUN 8, Creatinine 0.62, Glucose 96, Total Bilirubin 0.2, AST 16, ALT 24, Alkaline Phosphatase 94 Microbiology Data (last 24 hrs): 06/26/18 22:25 Nasopharnyx Influenza Type A Antigen Screen - Final 06/26/18 22:25 Nasopharnyx Influenza Type B Antigen Screen - Final Assessment and Plan - Problems (Diagnosis) (1) Nausea & vomiting Current Visit: Yes Status: Acute Qualifiers: Vomiting type: unspecified Vomiting Intractability: unspecified Qualified Code(s): R11.2 - Nausea with vomiting, unspecified (2) Opioid withdrawal Current Visit: Yes Status: Acute (3) Opioid abuse Current Visit: Yes Status: Acute (4) Tobacco abuse Current Visit: Yes Status: Acute - Plan The patient will be admitted to the hospital due to opioid withdrawal symptoms while she was started on Naltrexone treatment. Will continue with symptomatic medication, eventually will resume Suboxone and keep it for longer time before re-start naltrexone. - Advance Directives Does patient have a Living Will: No Does patient have a Durable POA for Healthcare: No - Code Status/Comfort Care Code Status Assessed: Yes Code Status: Full Code
[2018-06-26] MEDS: NA CHLORIDE 0.9% 1,000 ML IV SCH (23:45)
[2018-06-27] MEDS ORDERED: ONDANSETRON 4 MG/2 ML VIAL ONE (00:25)
[2018-06-27 01:03] LABS: Barbiturates NEGATIVE (NEGATIVE); Benzodiazepines NEGATIVE (NEGATIVE); Cocaine NEGATIVE (NEGATIVE); METHAMPHETAM NEGATIVE (NEGATIVE); Methadone NEGATIVE (NEGATIVE); Opiates NEGATIVE (NEGATIVE); Phencyclidine NEGATIVE (NEGATIVE); THC Cannibis POSITIVE (NEGATIVE)
[2018-06-27] MEDS: PROMETHAZINE 25 MG/ML VIAL IV PRN ×2 (02:11→06:08)
[2018-06-27] MEDS ORDERED: NICOTINE 21 MG/PAT TD PRN (02:26)
[2018-06-27 05:18] LABS: Absolute Lymphocytes (CBC) 1.3 K/uL (0.7-4.9); Absolute Monocytes 0.3 K/uL (0.1-1.3); Absolute Neutrophil 8.7 K/uL (1.8-8.0); Basophils % 0.2 % (0-1.3); Hematocrit 37.4 % (36.0-45.0); Lymphocytes % 12.9 % (15.3-44.8); MPV 7.9 fL (7.6-11.3); Monocytes % 3.1 % (3.3-12.3); RBC Red Blood Cell Count 4.52 M/uL (3.86-4.86)
[2018-06-27 05:30] LABS: BUN Blood Urea Nitrogen 6 mg/dL (7-18); Bicarbonate 26 mmol/L (21-32); Glucose Level 117 mg/dL (74-106); Potassium 3.8 mmol/L (3.5-5.1); Sodium Level 141 mmol/L (136-145)
[2018-06-27] MEDS ORDERED: POTASSIUM CL SA 10 MEQ TAB PO ONE (05:36)
--- NOTE | 2018-06-27 06:47 | EKG ---
Test Date: 2018-06-26 Test Time: 20:38:26 [employer] Tutor: JERRICA MEASUREMENT RESULTS: Intervals: Rate: 61 GA: 118 QRSD: 90 QT: 380 QTc: 382 [place]: P: 81 GA: 118 QRS: 84 T: 81 INTERPRETIVE STATEMENTS: Normal sinus rhythm with sinus arrhythmia Normal ECG No previous ECG available for comparison Electronically Signed On 06-27-18 06:46:46 CDT by Jesus Melgar
[2018-06-27] MEDS: NA CHLORIDE 0.9% 1,000 ML IV SCH (08:42)
--- NOTE | 2018-06-27 10:00 | RAD REPORT ---
EXAM DESCRIPTION: Geovani Single View06/26/2018 9:27 pm CLINICAL HISTORY: Cough COMPARISON: none FINDINGS: Calcified left lung granuloma. Calcified hilar lymph nodes. The lungs appear clear of acute infiltrate. The heart is normal size IMPRESSION: No acute abnormalities displayed
--- NOTE | 2018-06-27 10:17 | P.DS ---
Admission Date: 06/26/18 Discharge Date: 06/27/18 Primary Care Provider: unknown Disposition: ROUTINE DISCHARGE Discharge Condition: GOOD Reason for Admission: opioid withdrawal Consultations: none Procedures: CXR: COMPARISON: none FINDINGS: Calcified left lung granuloma. Calcified hilar lymph nodes. The lungs appear clear of acute infiltrate. The heart is normal size IMPRESSION: No acute abnormalities displayed Medical Problem List: Nausea, vomiting likely related to medication History of narcotic abuse currently in rehab for narcotic withdrawal Depression History of THC use Brief History of Present Illness: 32-year-old female presented emergency room with nausea and vomiting. Patient currently in rehab for narcotic withdrawal. Patient with history of narcotic abuse. Patient previously on suboxone. This was weaned off yesterday. She was started on naltrexone for craving. Patient had nausea and vomiting with medication. Patient was admitted for observation. Hospital Course: Patient presented with nausea and vomiting secondary to medication. Patient currently in rehab for narcotic withdrawal due to history of narcotic abuse. Patient had been weaned off suboxone. The patient was switched over to naltrexone for narcotic craving. This led to nausea and vomiting. Patient did not tolerate the medication. Patient was admitted and observed. Lab unremarkable. Patient without any significant nausea, vomiting or abdominal pain at this time. At discharge patient will return to rehab to continue therapy. Plan of care discussed with patient and director of rehab who agrees with plan. Will need to consider other alternative instead of naltrexone. This can be further addressed and monitored by the rehab facility. Patient likely with underlying depression. Patient may continue with Lexapro 20 mg daily. Further counseling and adjustment in medication can be done by psychiatry. Vital Signs/Physical Exam: Temp Pulse Resp BP Pulse Ox 99.6 F 94 H 20 123/78 98 06/27/18 08:00 06/27/18 08:00 06/27/18 08:00 06/27/18 08:00 06/27/18 08:00 General: Alert, In no apparent distress, Oriented x3, Cooperative HEENT: Atraumatic Neck: Supple Respiratory: Clear to auscultation bilaterally, Normal air movement Cardiovascular: Normal pulses, Regular rate/rhythm Gastrointestinal: Normal bowel sounds, Soft and benign, Non-distended, No tenderness, No masses, No rebound, No guarding Musculoskeletal: No erythema, No tenderness, No warmth Integumentary: No tenderness/swelling, No erythema, No warmth, No cyanosis Neurological: Normal speech, Normal strength at 5/5 x4 extr, Normal tone, Normal affect Laboratory Data at Discharge: WBC 10.4 K/uL (4.3-10.9) D 06/27/18 04:24 Hgb 12.9 g/dL (12.0-15.0) 06/27/18 04:24 Hct 37.4 % (36.0-45.0) 06/27/18 04:24 Plt Count 430 K/uL (152-406) H 06/27/18 04:24 PT 10.9 SECONDS (9.5-12.5) 06/26/18 20:26 INR 0.92 06/26/18 20:26 APTT 29.0 SECONDS (24.3-36.9) 06/26/18 20:26 Sodium 141 mmol/L (136-145) 06/27/18 04:24 Potassium 3.8 mmol/L (3.5-5.1) 06/27/18 04:24 BUN 6 mg/dL (7-18) L 06/27/18 04:24 Creatinine 0.60 mg/dL (0.55-1.3) 06/27/18 04:24 Glucose 117 mg/dL (74-106) H 06/27/18 04:24 Total Bilirubin 0.2 mg/dL (0.2-1.0) 06/26/18 20:26 AST 16 U/L (15-37) 06/26/18 20:26 ALT 24 U/L (12-78) 06/26/18 20:26 Alkaline Phosphatase 94 U/L (45-117) 06/26/18 20:26 Home Medications: Escitalopram Oxalate [Lexapro] 20 mg PO BEDTIME 06/27/18 Patient Discharge Instructions: 1. Patient may be discharged to rehab facility. 2. Patient presented with nausea and vomiting secondary to medication. Patient currently in rehab for narcotic withdrawal due to history of narcotic abuse. Patient had been weaned off suboxone. The patient was switched over to naltrexone for narcotic craving. This led to nausea and vomiting. Patient did not tolerate the medication. Patient was admitted and observed. Lab unremarkable. Patient without any significant nausea, vomiting or abdominal pain at this time. At discharge patient will return to rehab to continue therapy. Plan of care discussed with patient and director of rehab who agrees with plan. Will need to consider other alternative instead of naltrexone. This can be further addressed and monitored by the rehab facility. 3. Patient likely with underlying depression. Patient may continue with Lexapro 20 mg daily. Further counseling and adjustment in medication can be done by psychiatry. Diet: AHA Activity: Ad mila Time spent managing pt's care (in minutes): 55
== END 2018-06-27 14:54 | disposition home or self-care (01) ==
LOC: ER 20:15 → ERHOLD 23:39 → 2ND 06-27 00:26
PROVIDERS: ADMIT Internal Medicine; ATTEND Internal Medicine
DX: R11.2 Nausea with vomiting, unspecified (principal); F11.23 Opioid dependence with withdrawal; F32.9 Major depressive disorder, single episode, unspecified; F17.210 Nicotine dependence, cigarettes, uncomplicated; T40.2X5A Adverse effect of other opioids, initial encounter; Y92.9 Unspecified place or not applicable
CPT/HCPCS: 36415; 71045; 80048; 80076; 80307; 80320; 80329; 84145; 85025; 85610; 85730; 87040; 87804; 93005; 96361; 96365; 96375; 99285; G0378; J0696; J2405; J2550; J7030